=== PATIENT | male | born 1985 | race Native Hawaiian/Other Pacific Islander ===

== ENCOUNTER 2016-07-22 19:44 | Inpatient (IN) ==
[2016-07-22] MEDS ORDERED: SODIUM CHLORIDE 0.9% 500 ML IV STA (20:09)
--- NOTE | 2016-07-22 20:12 | Emergency Department Note ---
Chiki Rae Brooke, am scribing for, and in the presence of, Rui Aguiar MD 20 :10. Cosme Rae Charles R, MD, personally performed the services described in this documentation, ascribed by Sara Monet in my presence, and it is both accurate and complete . Arrival - Arrival Chief Complaint: Non-Specific Stated Complaint: Sepsis, UTI ED Nursing Triage Note: C/C transfer from [facility] ER Dx: UTI, Sepsis, Diabetes. Pt went into ER c/o fever, chills and dizziness. Pt has been given 1400ml NS, 10u Insulin IV, 5u insulin SQ, 1G Vancomycin, 1G Rocephin , 650mg Tylenol. Flu negative. Mode of Arrival: Stretcher Limitations: No Limitations Source: Patient, EMS, RN Notes Reviewed Time Seen by Provider: 07/22/16 20:04 - History of Present Illness HPI Narrative: Patient is a 30 year old male brought into the ED by EMS from [facility] with c/o dizziness, fever, and back pain that has been ongoing since Tuesday. Patient says when he gets us, it feels like he is going to pass out. He says he did have fever earlier today but was given 650 Tylenol at [facility]. Patient' s temperature during triage was 97.9 He denies having any current pain and denies having a cough. Patient has PMHx of HTN and IDDM. He says he does not smoke, drink alcohol, or do any drugs. Onset (ago): day(s) (4) Allergies/Adverse Reactions: Allergies Allergy/AdvReac Type Severity Reaction Status Date / Time sulfamethoxazole Allergy Unknown/Unable Verified 07/22/16 19:59 [From Bactrim] to obtain trimethoprim [From Bactrim] Allergy Unknown/Unable Verified 07/22/16 19:59 to obtain Home Medications: Home Medications Medication Instructions Recorded Confirmed Type Insulin Glargine,Hum.rec.anlog 50 unit SUBCUT BEDTIME 07/22/16 07/22/16 History [Lantus SoloStar] Review of System - Review of System 12 point system: reviewed and no additional remarkable complaints except as stated - Review of System Constitutional: Present: fever Respiratory: Absent: cough, respiratory distress Musculoskeletal: Present: back pain Skin: Absent: rash Neurological: Present: other (dizziness "feels like hes going to pass out") Medical,Surgical,& Family Hx - Medical History Cardio: History of: Hypertension Endocrine: History of: Diabetes Mellitus (IDDM) - Social History Smoking Status: Never smoker Frequency of Alcohol Use: None Type of Drug Use: None Exam Vital Signs: Vital Signs Temperature 97.9 F 07/22/16 19:44 Pulse Rate 105 H 07/22/16 19:44 Respiratory Rate 17 07/22/16 19:44 Blood Pressure 108/67 07/22/16 19:44 O2 Sat by Pulse Oximetry 96 07/22/16 19:44 - General General appearance: alert, in no apparent distress - Head Head exam: Present: atraumatic, normocephalic - Eye Eye exam: Present: normal appearance, PERRL, EOMI - ENT ENT exam: Present: normal exam - Neck Neck exam: Present: normal inspection - Chest Chest inspection: Present: normal inspection, symmetric chest wall rise - Respiratory Respiratory exam: Present: normal lung sounds bilaterally - Cardiovascular Cardiovascular exam: Present: normal rhythm, tachycardia, normal heart sounds - Abdominal Exam Abdominal exam: Present: soft. Absent: distention, tenderness - Extremities Exam Extremities exam: Present: normal inspection - Back Exam Back exam: Present: normal inspection - Neurological Exam Neurological exam: Present: alert, oriented X3 - Psychiatric Psychiatric exam: Present: normal affect, normal mood - Skin Skin exam: Present: warm, dry, intact, normal color Course - Consultations Consultation #1: Hospitalist will admit patient Time: 20:12 Results - Labs CBC & BMP: 07/22/16 20:09 Lab Results: I have reviewed the patients labs Labs: All results reviewed from previous facility Disposition Clinical Impression: Fever, Sepsis, UTI (urinary tract infection), Generalized weakness, Hypotension , Leukocytosis, Uncontrolled blood sugar Case discussed with: patient Disposition: Still a Patient Condition: Guarded Time of Disposition: 20:14
[2016-07-22 20:19] LABS: Basophils % 0.1 % (0.0-0.8); Eosinophils % 0.1 % (0.00-10.9); Hematocrit 33.8 VOL% (42.0-52.0); Hemoglobin 11.5 GM/DL (14.0-18.0); Immature Granulocytes % 0.5 %; Immature Granulocytes Absolute 0.07 #; Lymphocytes # 1.2 10*3/uL (1.4-4.0); Mean Corpuscular Hemoglobin 28 PG (27-34); Mean Platelet Volume 9.6 FL (9.6-12.0); Monocytes # 2.2 10*3/uL (0.11-0.8); Monocytes % 16.2 % (1.7-12.7); Neutrophils # 9.9 10*3/uL (1.4-7.4); Neutrophils % 74.1 % (38.7-73.9); Platelet Count 225 T/CUMM (130-400); Red Blood Count 4.12 MC/CUMM (3.8-5.5); Red Cell Distribution Width 12.2 % (9.3-17.3); White Blood Count 13.4 T/CUMM (4-12)
--- NOTE | 2016-07-22 20:36 | XRay Report ---
XR chest 1V portable Indication: Shortness of breath, fever Comparison: 11 May 2016 Findings: The heart and mediastinum are normal in size and configuration. The pulmonary vascularity is normal in caliber. No lung infiltrates, effusions, pneumothorax or other abnormality is demonstrated. Impression: Normal chest x-ray PROCEDURE INTERPRETED AT [facility] DEPARTMENT OF RADIOLOGY Final Report Signed by: Dr. Reji Foley
[2016-07-22 20:51] LABS: ABG Base Excess -0.4 MMOL/L (-2.5-2.5); ABG HCO3 24.1 MMOL/L (20-26); ABG Oxygen Saturation 95.6 % (95-100); ABG PCO2 42.6 MM HG (35-48); ABG PH 7.375 (7.35-7.45); ABG PO2 74.1 MM HG (80-95); ABG TCO2 22.2 MMOL/L (23-27); Allen Test Positive; Pt O2 Delivery Device Room Air
[2016-07-22 20:52] LABS: Alanine Aminotransferase 10 U/L (16-61); Albumin 2.3 G/DL (3.4-5.0); Alkaline Phosphatase 112 U/L (45-117); Amylase 31 U/L (25-115); Aspartate Amino Transferase 8 U/L (0-37); Bilirubin,Total < 0.39 MG/DL (0.2-1.0); Blood Urea Nitrogen 22 MG/DL (7-18); Calcium 7.7 MG/DL (8.5-10.1); Glucose 142 MG/DL (74-106); Osmolality,Calculated 281.5 MOS/KG (273-304); Potassium 3.7 MMOL/L (3.5-5.1); Sodium 139 MMOL/L (136-145); Total Protein 5.8 G/DL (6.4-8.3)
[2016-07-22] MEDS ORDERED: GLUCAGON 1 MG VIAL IM PRN (21:22)
[2016-07-22] MEDS ORDERED: DEXTROSE 50% 25 GM/50 ML VIAL IV PRN (21:22)
--- NOTE | 2016-07-22 21:32 | Hospitalist History & Physical ---
History of Present Illness Chief complaint: Dizziness poor arousal reported sepsis from [facility] History of present illness: Mr. Hamilton is a 30 year old male History of type 1 diabetes mellitus on insulin and reporting that he had missed his doses days leading to presenting to [facility]. He also reports that it was difficult to ambulate because he would feel dizzy and felt like he was going to fall down whenever he stood up. Shunt was assessed as [facility] where he was thought to be septic was given vancomycin and ceftriaxone and sent to the emergency room here for further evaluation and management. Was in the emergency room patient was found to have elevated white count obviously dehydrated and was given some IV fluids while in the emergency room prior to calling our service. 2 sets of blood cultures already obtained at [facility]. His urine was repeated here and found to have urinary tract infection. Patient did not have an anion gap at the chemistry repeated here his fingerstick sugar was 146 mg percent did not have any fetor on his breath. I cannot explain to me as to why he was not taking his insulin this past few days. He takes 50 units of Levemir insulin at bedtime does not recall using any short acting insulin. Denies any abdominal pain denies any chest pain denies any diarrhea denies any dysuria and he reports that he was having low back pain over the past few days. Obviously this gentleman was dehydrated as to whether he has sepsis and not is not clear lactate is still pending at this point but I am concerned that he seemed to have been hypotensive which could be the result of dehydration but sepsis is a possibility. He has normal renal function on repeat chemistries. I was informed by the emergency room that they needed a repeat chemistry but because in the experience the lab reports from where he did was done before coming to here some time but that they do get " messed up" Home Medications Medication Instructions Recorded Confirmed Type Insulin Glargine,Hum.rec.anlog 50 unit SUBCUT BEDTIME 07/22/16 07/22/16 History [Lantus SoloStar] Allergies Allergy/AdvReac Type Severity Reaction Status Date / Time sulfamethoxazole Allergy Unknown/Unable Verified 07/22/16 19:59 [From Bactrim] to obtain trimethoprim [From Bactrim] Allergy Unknown/Unable Verified 07/22/16 19:59 to obtain Medical,Surgical,& Family Hx - Medical History Cardio: History of: Hypertension Endocrine: History of: Diabetes Mellitus (IDDM) - Social History Smoking Status: Never smoker Frequency of Alcohol Use: None Type of Drug Use: None Exam - Constitutional Vitals: Period Temp Pulse Resp BP Sys/Borges Pulse Ox Last 24 Hr 97.9 F-97.9 F 105-105 108-108/67-67 96 Results - Labs CBC & BMP: 07/22/16 20:09 07/22/16 20:09
[2016-07-22 21:46] LABS: Risk Ratio 2.36; VLDL CHOLESTEROL 34.6 MG/DL
[2016-07-22 21:49] LABS: Apearance,Urine CLOUDY (Clear); Bilirubin,Urine Negative (Negative); Blood, Urine Moderate mg/dL (Negative); Glucose,Urine (UA) >=500 mg/dL (Negative); Ketones,Urine 20 mg/dL (Negative); Nitrite,Urine Negative (Negative); Protein,Urine Negative; RBC,Urine 6 /HPF (0-4); Urine Color Yellow (Yellow); Urine Specific Gravity 1.017 (1.001-1.035); Urine Urobilinogen < 2.0 EU/DL (0.2-1.0); WBC,Urine 25 /HPF (0-6)
[2016-07-22] MEDS: ENOXAPARIN 40 MG/0.4 ML SYRINGE SUBCUT SCH (22:24)
[2016-07-22] MEDS: INSULIN GLARGINE 100 UNIT/ML SUBCUT SCH (22:24)
[2016-07-22] MEDS: DEXTROSE 5% NACL 0.9% 1,000 ML IV SCH (22:25)
[2016-07-22 22:59] LABS: Eosinophils 1 % (0-10); Lymphocytes 9 % (20-55); Metamyelocytes 2 %; Platelet Estimate Normal; Segmented Neutrophils 75 % (50-85); Total Cells Counted 100
[2016-07-22 23:01] LABS: Sedimentation Rate-Westergren 103 MM/HR (0-15)
[2016-07-23] MEDS: ACETAMINOPHEN 325 MG TABLET PO PRN ×4 (05:33→23:52)
[2016-07-23] MEDS: DEXTROSE 5% NACL 0.9% 1,000 ML IV SCH (05:36)
[2016-07-23 07:15] LABS: Basophils % 0.1 % (0.0-0.8); Eosinophils % 0.1 % (0.00-10.9); Hematocrit 33.1 VOL% (42.0-52.0); Hemoglobin 11.2 GM/DL (14.0-18.0); Immature Granulocytes % 0.4 %; Immature Granulocytes Absolute 0.05 #; Lymphocytes # 1.1 10*3/uL (1.4-4.0); Lymphocytes % 8.2 % (21.2-54.2); Mean Corpuscular HGB Conc 33.8 GM/DL (32-36); Mean Corpuscular Hemoglobin 28 PG (27-34); Mean Corpuscular Volume 82.8 FL (87-102); Mean Platelet Volume 9.6 FL (9.6-12.0); Monocytes # 1.7 10*3/uL (0.11-0.8); Monocytes % 13.3 % (1.7-12.7); Neutrophils # 9.9 10*3/uL (1.4-7.4); Neutrophils % 77.9 % (38.7-73.9); Platelet Count 201 T/CUMM (130-400); White Blood Count 12.7 T/CUMM (4-12)
[2016-07-23 07:47] LABS: Calcium 8.1 MG/DL (8.5-10.1); Magnesium 1.9 MG/DL (1.8-2.4)
[2016-07-23] MEDS ORDERED: INSULIN LISPRO 100 UNIT/ML SUBCUT SCH (08:00)
[2016-07-23] MEDS ORDERED: DEXTROSE 50% 25 GM/50 ML VIAL IV PRN (08:05)
[2016-07-23] MEDS ORDERED: GLUCAGON 1 MG VIAL IM PRN (08:05)
[2016-07-23] MEDS ORDERED: POTASSIUM CHLORIDE 20 MEQ PACK PO ONE (08:07)
[2016-07-23] MEDS ORDERED: SODIUM CHLORIDE 0.9% 1,000 ML IV SCH (08:30)
[2016-07-23 08:32] LABS: Risk Ratio 2.34; VLDL CHOLESTEROL 33.2 MG/DL
[2016-07-23] MEDS: SODIUM CHLORIDE 0.9% 1,000 ML IV SCH (09:34)
--- NOTE | 2016-07-23 13:57 | Hospitalist Progress Note ---
Assessment and Plan (1) Diabetes mellitus Status: Chronic Assessment and plan: Poorly controlled IRDM. Pt noncompliant with meds and follow up. HbA1c>15. Pt counseled in detail regarding need for compliance and complications a/w noncompliance Current Visit: Yes (2) Hypokalemia Status: Acute Assessment and plan: replacing Current Visit: Yes (3) Fever Status: Acute Assessment and plan: Sepsis vs SIRs. Pt presumed to have sepsis from urinary source, POA. Cx negative thus far. Afebrile since admit. Will begin de-escalation of abx with dc of Rocephin; start po Ceftin for now. Current Visit: Yes (4) Generalized weakness Status: Resolved Current Visit: Yes (5) Hypotension Status: Resolved Current Visit: Yes Hospitalist: Subjective Interval history: NV and "dizziness" POA has now resolved Exam - Constitutional Vitals: Period Temp Pulse Resp BP Sys/Borges Pulse Ox Last 24 Hr 97.4 F-101.8 F 93-115 16-20 102-120/57-81 97-99 General appearance: no acute distress - Head Head exam: Present: normal inspection - Eye Eye exam: Present: EOMI Pupils: Present: MASOOD - ENT ENT exam: Present: normal exam - Neck Neck exam: Present: normal inspection. Absent: lymphadenopathy - Respiratory Respiratory exam: Present: clear to auscultation bilaterally. Absent: accessory muscle use, rales, rhonchi, wheezes - Cardiovascular Cardiovascular exam: Present: regular rate and rhythm. Absent: gallop, rubs - GI/Abdominal GI/Abdominal exam: Present: normal bowel sounds. Absent: distended, tenderness - Extremities Exam Extremities exam: Present: normal inspection, full ROM - Neurological Exam Neurological exam: Present: alert, oriented X3 - Psychiatric Psychiatric exam: Present: normal affect, normal mood - Skin Skin exam: Present: normal color, warm, dry Results - Labs CBC & BMP: 07/23/16 07:10 07/23/16 07:10 Quality Measures - Stroke Symptom Onset Unknown: No
[2016-07-23] MEDS: INSULIN LISPRO 100 UNIT/ML SUBCUT SCH ×3 (14:30→21:49)
[2016-07-23] MEDS: CEFUROXIME 500 MG TABLET PO SCH ×2 (14:30→21:49)
[2016-07-23] MEDS ORDERED: cefTRIAXone 1,000 MG in SODIUM CHLORIDE 0.9% 100 ML IV SCH (18:00)
[2016-07-23] MEDS: INSULIN GLARGINE 100 UNIT/ML SUBCUT SCH (21:48)
[2016-07-23] MEDS: LEVOFLOXACIN INJ 750 MG in PREMIX 1 EACH IV SCH (21:48)
[2016-07-23] MEDS: ENOXAPARIN 40 MG/0.4 ML SYRINGE SUBCUT SCH (21:49)
[2016-07-24] MEDS: SODIUM CHLORIDE 0.9% 1,000 ML IV SCH ×3 (00:40→15:51)
[2016-07-24 04:03] LABS: Basophils % 0.2 % (0.0-0.8); Eosinophils % 0.1 % (0.00-10.9); Hemoglobin 11.2 GM/DL (14.0-18.0); Immature Granulocytes % 0.6 %; Immature Granulocytes Absolute 0.07 #; Lymphocytes # 1.2 10*3/uL (1.4-4.0); Lymphocytes % 10.9 % (21.2-54.2); Mean Corpuscular HGB Conc 32.9 GM/DL (32-36); Mean Corpuscular Hemoglobin 27 PG (27-34); Mean Corpuscular Volume 82.7 FL (87-102); Mean Platelet Volume 9.6 FL (9.6-12.0); Monocytes # 1.5 10*3/uL (0.11-0.8); Monocytes % 13.2 % (1.7-12.7); Neutrophils # 8.4 10*3/uL (1.4-7.4); Platelet Count 206 T/CUMM (130-400); Red Blood Count 4.11 MC/CUMM (3.8-5.5); Red Cell Distribution Width 12.1 % (9.3-17.3); White Blood Count 11.2 T/CUMM (4-12)
[2016-07-24 04:23] LABS: Albumin 2.2 G/DL (3.4-5.0); Calcium 7.6 MG/DL (8.5-10.1); Magnesium 1.8 MG/DL (1.8-2.4); Osmolality,Calculated 279.1 MOS/KG (273-304); Potassium 3.2 MMOL/L (3.5-5.1)
[2016-07-24] MEDS: ACETAMINOPHEN 325 MG TABLET PO PRN ×2 (06:40→17:42)
[2016-07-24] MEDS: INSULIN LISPRO 100 UNIT/ML SUBCUT SCH ×4 (09:35→21:21)
[2016-07-24] MEDS: CEFUROXIME 500 MG TABLET PO SCH (09:36)
--- NOTE | 2016-07-24 10:30 | Hospitalist Progress Note ---
Assessment and Plan (1) Diabetes mellitus Status: Chronic Assessment and plan: Poorly controlled IRDM. Pt noncompliant with meds and follow up. HbA1c>15. Pt counseled in detail regarding need for compliance and complications a/w noncompliance. 07/24/16: start split-dose Lantus at 35u BID due to persistent hyperglycemia Current Visit: Yes (2) Hypokalemia Status: Acute Assessment and plan: replacing K+ and phos until replete Current Visit: Yes (3) Fever Status: Acute Assessment and plan: Sepsis vs SIRs. Pt presumed to have sepsis from urinary source, POA. Cx negative thus far. Began de-escalation of abx yesterday and pt began having fever. Source is no clear. Bcx x 2 toady. repeat CXR. Add HIV. Cont IV Levaquin and add IV Rocephin. Rapid Flu negative Current Visit: Yes (4) Generalized weakness Status: Resolved Current Visit: Yes (5) Hypotension Status: Resolved Current Visit: Yes (6) Hypophosphatemia Status: Acute Assessment and plan: replacing Current Visit: Yes (7) Protein-calorie malnutrition Status: Acute Assessment and plan: consult childhood development teacher Current Visit: Yes Hospitalist: Subjective Interval history: Pt reports generally feeling better despite return of fever Exam - Constitutional Vitals: Period Temp Pulse Resp BP Sys/Borges Pulse Ox Last 24 Hr 98.7 F-102.7 F 78-116 16-20 93-121/53-74 97-98 General appearance: no acute distress, under weight, other (diaphoretic (fever broke)) - Head Head exam: Present: normal inspection, normocephalic, atraumatic - Eye Eye exam: Present: EOMI. Absent: conjunctival injection, scleral icterus Pupils: Present: MASOOD - ENT ENT exam: Present: normal exam, normal oropharynx - Neck Neck exam: Present: normal inspection. Absent: lymphadenopathy, meningismus - Respiratory Respiratory exam: Present: clear to auscultation bilaterally. Absent: accessory muscle use, chest wall tenderness, decreased breath sounds, rales, rhonchi, wheezes - Cardiovascular Cardiovascular exam: Present: regular rate and rhythm. Absent: gallop, rubs - GI/Abdominal GI/Abdominal exam: Present: normal bowel sounds. Absent: distended, tenderness - Extremities Exam Extremities exam: Present: normal inspection, normal capillary refill, full ROM - Neurological Exam Neurological exam: Present: alert, oriented X3. Absent: motor sensory deficit - Psychiatric Psychiatric exam: Present: normal affect, normal mood - Skin Skin exam: Present: normal color, warm, diaphoretic, dry. Absent: abrasion, erythema, rash Results - Labs CBC & BMP: 07/24/16 03:33 07/24/16 03:33 Quality Measures - Stroke Symptom Onset Unknown: No
--- NOTE | 2016-07-24 12:42 | XRay Report ---
Portable chest Date: 07/24/2016 Clinical history: Fever Comparison: 07/20/2016 Technique: Portable AP sitting chest Findings: The heart is normal in size. Atelectasis/infiltration at the left lung base. Stable mediastinum and osseous structures. Impression: Atelectasis/infiltration at the left lung base consistent with pneumonia. PROCEDURE INTERPRETED AT [facility] DEPARTMENT OF RADIOLOGY Final Report Signed by: Dr. Adela Narayan
[2016-07-24] MEDS: POTASSIUM PHOS/SOD PHOS POWDER 250 MG PACK PO SCH ×3 (13:16→21:22)
[2016-07-24] MEDS: INSULIN GLARGINE 100 UNIT/ML SUBCUT SCH ×2 (13:18→21:21)
[2016-07-24] MEDS: cefTRIAXone 2,000 MG in SODIUM CHLORIDE 0.9% 100 ML IV SCH (13:18)
[2016-07-24 14:14] LABS: HIV Antigen/Antibody Result Nonreactive (Nonreactive)
[2016-07-24] MEDS: ENOXAPARIN 40 MG/0.4 ML SYRINGE SUBCUT SCH (22:40)
[2016-07-24] MEDS: LEVOFLOXACIN INJ 750 MG in PREMIX 1 EACH IV SCH (22:40)
[2016-07-25] MEDS: ACETAMINOPHEN 325 MG TABLET PO PRN ×2 (05:22→17:50)
[2016-07-25] MEDS: SODIUM CHLORIDE 0.9% 1,000 ML IV SCH ×5 (05:23→21:31)
[2016-07-25 06:04] LABS: Basophils % 0.1 % (0.0-0.8); Eosinophils % 0.2 % (0.00-10.9); Hematocrit 30.3 VOL% (42.0-52.0); Hemoglobin 10.3 GM/DL (14.0-18.0); Immature Granulocytes % 0.4 %; Immature Granulocytes Absolute 0.05 #; Lymphocytes # 1.4 10*3/uL (1.4-4.0); Mean Corpuscular Hemoglobin 28 PG (27-34); Mean Corpuscular Volume 80.8 FL (87-102); Mean Platelet Volume 9.9 FL (9.6-12.0); Monocytes # 1.6 10*3/uL (0.11-0.8); Monocytes % 13.8 % (1.7-12.7); Neutrophils # 8.7 10*3/uL (1.4-7.4); Neutrophils % 73.5 % (38.7-73.9); Platelet Count 204 T/CUMM (130-400); Red Blood Count 3.75 MC/CUMM (3.8-5.5); Red Cell Distribution Width 12.3 % (9.3-17.3); White Blood Count 11.8 T/CUMM (4-12)
[2016-07-25 06:54] LABS: Albumin 1.9 G/DL (3.4-5.0); Calcium 7.3 MG/DL (8.5-10.1); Magnesium 1.6 MG/DL (1.8-2.4); Osmolality,Calculated 276.7 MOS/KG (273-304); Phosphorous 1.3 MG/DL (2.5-4.9); Potassium 3.1 MMOL/L (3.5-5.1)
[2016-07-25] MEDS ORDERED: MAGNESIUM SULF RIDER 2 GM in PREMIX 1 EACH IV PRN (07:15)
[2016-07-25] MEDS ORDERED: MAGNESIUM SULF RIDER 4 GM in PREMIX 1 EACH IV PRN (07:15)
--- NOTE | 2016-07-25 10:47 | Hospitalist Progress Note ---
Assessment and Plan - Time spent with patient Time spent with patient: Greater than 30 minutes (1) Diabetes mellitus Status: Chronic Assessment and plan: Poorly controlled IRDM. Pt noncompliant with meds and follow up. HbA1c>15. Pt counseled in detail regarding need for compliance and complications a/w noncompliance. 07/24/16: start split-dose Lantus at 35u BID due to persistent hyperglycemia. 07/25: will titrate up basal insulin further for persistent hyperglycemia Current Visit: Yes (2) Hypokalemia Status: Acute Assessment and plan: replacing K+ and phos until replete Current Visit: Yes (3) Fever Status: Acute Assessment and plan: Sepsis vs SIRs. Pt presumed to have sepsis from urinary source, POA. Cx of urine with 2 different yeast. ID and sensitivity pending. Given uncontrolled DM , pt is at increased risk of invasive/pathogenic yeast; will begin IV antifungal for now. CXR from 07/24 reviewed. Basilar infiltrate vs atelectasis present that was not on admit cxr. Pt is on adequate tx for CAP. I have performed head to toe exam at bedside today looking for potential wound infection; none noted. Pt denies pain or other localizing symptoms. BCx data is pending. IV vancomycin added as well as IV antifungal. CT chest, abd and pelvis today. Current Visit: Yes (4) Generalized weakness Status: Resolved Current Visit: Yes (5) Hypotension Status: Resolved Current Visit: Yes (6) Hypophosphatemia Status: Acute Assessment and plan: replacing Current Visit: Yes (7) Protein-calorie malnutrition Status: Acute Assessment and plan: consult assistant facility manager Current Visit: Yes Hospitalist: Subjective Interval history: Persistent fever. Pt reports feeling better but seems to be an unreliable historian. Exam - Constitutional Vitals: Period Temp Pulse Resp BP Sys/Borges Pulse Ox Last 24 Hr 98.1 F-106.3 F 101-113 16-20 86-116/49-70 96-98 General appearance: no acute distress, under weight - Head Head exam: Present: normal inspection, normocephalic, atraumatic - Eye Eye exam: Present: EOMI. Absent: conjunctival injection, scleral icterus Pupils: Present: MASOOD - ENT ENT exam: Present: normal exam, normal external ear exam, normal oropharynx - Neck Neck exam: Present: normal inspection. Absent: lymphadenopathy, meningismus, tenderness - Respiratory Respiratory exam: Present: clear to auscultation bilaterally. Absent: accessory muscle use, chest wall tenderness, rales, rhonchi, wheezes - Cardiovascular Cardiovascular exam: Present: tachycardia. Absent: diastolic murmur, gallop, rubs, systolic murmur - GI/Abdominal GI/Abdominal exam: Present: normal bowel sounds, soft. Absent: distended, tenderness - Extremities Exam Extremities exam: Present: normal inspection, normal capillary refill, full ROM - Back Exam Back exam: Present: normal inspection. Absent: CVA tenderness (L), CVA tenderness (R) - Neurological Exam Neurological exam: Present: alert, oriented X3, CN II-XII intact. Absent: motor sensory deficit - Psychiatric Psychiatric exam: Present: flat affect. Absent: agitated, anxious - Skin Skin exam: Present: normal color, warm, dry, intact. Absent: abrasion, erythema , rash Results - Labs CBC & BMP: 07/25/16 05:42 07/25/16 05:42 - Diagnostic Findings Procedure: Chest x-ray: image reviewed by me, report reviewed by me (basilar infiltrate not noted on prior cxr), CT Abdomen and Pelvis: pending, CT - chest: pending Quality Measures - Stroke Symptom Onset Unknown: No
[2016-07-25] MEDS: INSULIN LISPRO 100 UNIT/ML SUBCUT SCH ×4 (11:13→21:31)
[2016-07-25] MEDS: MICAFUNGIN 100 MG in SODIUM CHLORIDE 0.9% 100 ML IV SCH (11:13)
[2016-07-25] MEDS: POTASSIUM CHLORIDE RIDER 10 MEQ in PREMIX 1 EACH IV PRN ×4 (11:13→15:46)
[2016-07-25] MEDS: INSULIN GLARGINE 100 UNIT/ML SUBCUT SCH ×3 (11:14→21:31)
[2016-07-25] MEDS: POTASSIUM PHOS/SOD PHOS POWDER 250 MG PACK PO SCH ×3 (11:16→21:32)
[2016-07-25] MEDS: VANCOMYCIN INJ 1,000 MG in SODIUM CHLORIDE 0.9% 250 ML IV SCH ×2 (12:31→18:46)
--- NOTE | 2016-07-25 14:08 | CT Report ---
Exam: CT chest, abdomen and pelvis with contrast Date: 07/25/2016 Comparison: 04/26/2012 Reason: Sepsis, fever Technique: Axial images of the chest, abdomen and pelvis were obtained with the use of 100 cc of Omnipaque 350 IV contrast. Oral contrast was also administered. Sagittal and coronal reformatted images were provided. Total DLP is 692.90 mGy*cm. Findings: The heart is normal in size with small cardiophrenic fat pads. The ascending aorta is normal in size with no evidence aortic dissection. Limited contrast in the pulmonary arteries. No obvious pulmonary emboli. Minimal air in the main pulmonary artery. No chest lymphadenopathy is identified. Small hiatal hernia with progressive dilatation of the esophagus which contains food/secretions. The esophagus measures 38 mm in diameter. Reduced but persistent minimal atelectasis/infiltration in the left lower lobe with tiny left pleural effusion. The liver is normal in size with no masses, dilated ducts, or calcified gallstones. The spleen, pancreas and adrenal glands are stable in appearance. Minimal right hydronephrosis with cortical scarring in the right kidney. 3 mm left upper pole renal calculus with moderate left hydronephrosis. In homogeneous enhancement/excretion of the contrast in the left kidney. Significant progressive dilatation of the left ureter which measures 18 mm in diameter. The ureters are dilated to the level of the urinary bladder. No ureteral calculi identified. Progressive diffuse thickening of the wall of the urinary bladder which is distended to the level of L4-L5. The prostate measures 43 mm in diameter. The abdominal aorta is normal in size with adjacent nodes which are borderline in size to minimally enlarged. No dilatation of the small bowel. Limited oral contrast versus colon with diverticulosis. No evidence of definite diverticulitis, appendicitis, or free air. Minimal free fluid in the abdomen and pelvis with associated thickening of the mesentery. Additional perinephric fluid, especially on the left. Degenerative changes are noted. Impression: Reduced but persistent atelectasis/infiltration in the left lower lobe with tiny left pleural effusion. Small hiatal hernia with progressive dilatation of the esophagus which appears to be filled with food/secretions. At least some of these findings could be related to reflux, but is difficult to exclude other bowel pathology. Limited oral contrast in the colon with diverticulosis. Scarring in the right kidney with 3 mm left upper pole renal calculus. Inhomogeneous enhancement/excretion of the left kidney which can be seen with pyelonephritis, etc. Minimal right and moderate left hydronephrosis with perinephric fluid. The ureters are dilated level of the abnormal urinary bladder which is distended to the level of L4-L5. Diffuse bladder wall thickening which can be seen with infection, inflammation, neoplasm, etc. Associated minimal ascites with indeterminate thickening of the mesentery and minimal lymphadenopathy. The CT exam was performed using one or more of the following dose reduction techniques: Automated exposure control and adjustment of the mA and/or kV according to patient size. PROCEDURE INTERPRETED AT [facility] DEPARTMENT OF RADIOLOGY Final Report Signed by: Dr. Adela Narayan
[2016-07-25] MEDS: cefTRIAXone 2,000 MG in SODIUM CHLORIDE 0.9% 100 ML IV SCH (15:42)
[2016-07-25] MEDS: ENOXAPARIN 40 MG/0.4 ML SYRINGE SUBCUT SCH (21:32)
[2016-07-25] MEDS: LEVOFLOXACIN INJ 750 MG in PREMIX 1 EACH IV SCH (21:32)
[2016-07-26] MEDS: POTASSIUM CHLORIDE RIDER 10 MEQ in PREMIX 1 EACH IV PRN ×7 (00:06→13:04)
[2016-07-26] MEDS: VANCOMYCIN INJ 1,000 MG in SODIUM CHLORIDE 0.9% 250 ML IV SCH ×3 (01:14→19:06)
[2016-07-26] MEDS: ACETAMINOPHEN 325 MG TABLET PO PRN ×3 (01:48→17:10)
[2016-07-26 07:14] LABS: Basophils % 0.2 % (0.0-0.8); Eosinophils % 0.3 % (0.00-10.9); Hematocrit 30.8 VOL% (42.0-52.0); Hemoglobin 10.1 GM/DL (14.0-18.0); Immature Granulocytes % 0.6 %; Immature Granulocytes Absolute 0.07 #; Lymphocytes # 1.5 10*3/uL (1.4-4.0); Lymphocytes % 13.2 % (21.2-54.2); Mean Corpuscular HGB Conc 32.8 GM/DL (32-36); Mean Corpuscular Hemoglobin 27 PG (27-34); Mean Platelet Volume 9.9 FL (9.6-12.0); Monocytes # 1.7 10*3/uL (0.11-0.8); Monocytes % 14.7 % (1.7-12.7); Neutrophils # 8.3 10*3/uL (1.4-7.4); Platelet Count 224 T/CUMM (130-400); Red Blood Count 3.71 MC/CUMM (3.8-5.5); Red Cell Distribution Width 12.4 % (9.3-17.3); White Blood Count 11.7 T/CUMM (4-12)
[2016-07-26 07:35] LABS: Albumin 1.9 G/DL (3.4-5.0); Calcium 7.5 MG/DL (8.5-10.1); Magnesium 2.4 MG/DL (1.8-2.4); Osmolality,Calculated 274.7 MOS/KG (273-304); Phosphorous 0.9 MG/DL (2.5-4.9); Potassium 3.6 MMOL/L (3.5-5.1)
[2016-07-26] MEDS: INSULIN GLARGINE 100 UNIT/ML SUBCUT SCH ×2 (08:21→21:52)
[2016-07-26] MEDS: INSULIN LISPRO 100 UNIT/ML SUBCUT SCH ×4 (08:21→21:52)
[2016-07-26] MEDS: SODIUM CHLORIDE 0.9% 1,000 ML IV SCH ×4 (11:22→20:39)
[2016-07-26] MEDS: cefTRIAXone 2,000 MG in SODIUM CHLORIDE 0.9% 100 ML IV SCH (11:25)
[2016-07-26] MEDS: MICAFUNGIN 100 MG in SODIUM CHLORIDE 0.9% 100 ML IV SCH (11:25)
[2016-07-26] MEDS: POTASSIUM PHOS/SOD PHOS POWDER 250 MG PACK PO SCH ×3 (11:29→21:53)
[2016-07-26 11:47] LABS: Apearance,Urine Turbid (Clear); Bilirubin,Urine Negative (Negative); Blood, Urine Trace mg/dL (Negative); Glucose,Urine (UA) 150 mg/dL (Negative); Ketones,Urine Negative (Negative); Nitrite,Urine Negative (Negative); Protein,Urine 100 MG/DL; RBC,Urine 35 /HPF (0-4); Urine Color Yellow (Yellow); Urine Specific Gravity 1.005 (1.001-1.035); Urine Urobilinogen 0.2 EU/DL (0.2-1.0); WBC,Urine 2412 /HPF (0-6)
--- NOTE | 2016-07-26 13:01 | Hospitalist Progress Note ---
Assessment and Plan (1) Hydronephrosis, bilateral Status: Acute Assessment and plan: Patient now has a Carreon catheter. Is noted on evaluation so this point that he also thickened urinary bladder. Patient will be seen by urology. We will heed their recommendations Current Visit: Yes (2) Fever Status: Acute Assessment and plan: Noted quite significant fevers into yesterday. My suspicion that he had a urinary tract infection of his persisting due to this hydronephrosis. Patient now has a Carreon catheter. Should obtain a urine and reassess in with a urinalysis urine Gram stain and culture and also get a urine cytology Current Visit: Yes (3) UTI (urinary tract infection) Status: Acute Assessment and plan: Being treated in the colon currently on levofloxacin micafungin vancomycin and ceftriaxone I believe ceftriaxone is a necessary we are going to use Levaquin for urinary tract infection Current Visit: Yes (4) Leukocytosis Status: Acute Assessment and plan: Mortise at this point could be secondary to infection and will continue to observe Current Visit: Yes (5) Diabetes mellitus Status: Chronic Current Visit: Yes Qualifiers: Diabetes mellitus type: type 1 Diabetes mellitus complication status: with hyperglycemia Qualified Code(s): E10.65 - Type 1 diabetes mellitus with hyperglycemia (6) Protein-calorie malnutrition Status: Acute Assessment and plan: Current dietary recommendation on his caloric needs Current Visit: Yes Hospitalist: Subjective Interval history: Patient has been seen interviewed and examined. Gentleman now has a Carreon catheter because he was retaining his urine and will hydronephrosis. Concerned that reading into yesterday still had fever that are quite high does have a modest leukocytosis and level of 11,000 found weight loss diabetic with poor control and noncompliance with medications at home. Is not aware of his HIV status. I counseled the patient in that regard and is agreed to be tested here. Patient will also be seen by a health informatics advisor because of the unexplained hydronephrosis urinary retention and thickened urinary bladder wall. Whether this metastasis involved eos infectious is unclear. Exam - Constitutional Vitals: Period Temp Pulse Resp BP Sys/Borges Pulse Ox Last 24 Hr 98.3 F-102.4 F 80-125 16-20 85-120/50-86 96-99 General appearance: under weight - Head Head exam: Present: normal inspection, normocephalic, other (Temporal was) - Eye Eye exam: Present: EOMI, other (That is clear no conjunctival petechia) Pupils: Present: MASOOD - ENT ENT exam: Present: normal oropharynx - Neck Neck exam: Present: other - Respiratory Respiratory exam: Present: clear to auscultation bilaterally, other (No coughing today and in both lung no wheezing) - Cardiovascular Cardiovascular exam: Present: regular rate and rhythm - GI/Abdominal GI/Abdominal exam: Present: other (Soft scaphoid abdomen no hepatosplenomegaly normal bowel sounds) - Extremities Exam Extremities exam: Present: other (Loss of muscle bulk multiple excoriations that reviewed generalized weakness full range of motion) - Back Exam Back exam: Present: other (Symmetric back or CVA tenderness) - Neurological Exam Neurological exam: Present: alert, oriented X3, CN II-XII intact - Psychiatric Psychiatric exam: Present: normal affect, normal mood - Skin Skin exam: Present: normal color, warm, dry, other (Healed scars on the skin) Results - Labs CBC & BMP: 07/26/16 06:50 07/26/16 06:50 Lab Results: I have reviewed the past 24 hour labs Quality Measures - Stroke Symptom Onset Unknown: No
--- NOTE | 2016-07-26 18:12 | Urology Consultation ---
Assessment and Plan - Time spent with patient Time spent with patient: Greater than 30 minutes (1) Urinary retention Status: Acute Assessment and plan: Begin Flomax given voiding trial when he is improved. Current Visit: Yes (2) Monilial cystitis Status: Acute Assessment and plan: Needs to start Diflucan but there is a interaction with Levaquin. We will notify the attending and see if we could stop the Levaquin. Current Visit: Yes History of Present Illness - Data of Consult Patient: new to practice Consult date: 07/26/16 Requesting Physician: Tino Darling - Consult Narrative Reason for consult: Urinary retention History of present illness: Mr. Hamilton is a 30 year old male who is a poorly controlled insulin diabetic. He was initially diagnosed 6 years ago. He is admitted the hospital with generalized malaise feeling poorly subjective fever. Thought to be septic. A CT scan revealed bilateral hydronephrosis with enlarged bladder. He has been admitted to hospital and treated for urosepsis with IV antibiotics and cultures. Bladder scan was done there revealed a large amount in his bladder. A Carreon was placed. Surprisingly through all this his creatinine is normal. He has taken care of his diabetes and a very apathetic way. 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 6 years of poorly controlled diabetes can severely damaged her bladder. Not to mention the kidneys and other things. His urine culture shows Ara in his urine. He needs to be placed on Diflucan but he is on Levaquin and there is a serious interaction between those 2 drugs. I will have the nurses contact the attending and see if they could stop the Levaquin. I will begin Flomax. We will remove the catheter when he is feeling better and ambulating better. He may in the long run, require intermittent catheterization as his bladder may not respond. But he is young enough that it should. Only time will tell. CC: Tino Darling MD - Home Medications and Allergies Home Medications: Home Medications Medication Instructions Recorded Confirmed Type Insulin Glargine,Hum.rec.anlog 50 unit SUBCUT BEDTIME 07/22/16 07/22/16 History [Lantus SoloStar] Allergies/Adverse Reactions: Allergies Allergy/AdvReac Type Severity Reaction Status Date / Time sulfamethoxazole Allergy Unknown/Unable Verified 07/22/16 19:59 [From Bactrim] to obtain trimethoprim [From Bactrim] Allergy Unknown/Unable Verified 07/22/16 19:59 to obtain 12 point system: reviewed and no additional remarkable complaints except as stated - Genitourinary Genitourinary: Present: difficulty urinating, urinary frequency, urinary incontinence, other (Patient would have multiple incontinence at night in the bed) Exam - Constitutional Vitals: Period Temp Pulse Resp BP Sys/Borges Pulse Ox Last 24 Hr 98.3 F-102.4 F 80-125 16-20 85-110/50-71 96-99 - GI/Abdominal GI/Abdominal exam: Present: tenderness (Mild suprapubic), soft. Absent: distended, firm, guarding, hernia, mass, rebound - Genitourinary Genitourinary: scrotum without lesions, cysts, edema or rash, penis with no lesions or discharge, prostate nontender, with no enlargement or nodules Results - Labs CBC & BMP: 07/26/16 06:50 07/26/16 06:50 Lab Results: I have reviewed the past 24 hour labs - Diagnostic Findings Procedure: CT Abdomen and Pelvis: report reviewed by me
[2016-07-26] MEDS: ENOXAPARIN 40 MG/0.4 ML SYRINGE SUBCUT SCH (21:52)
[2016-07-27] MEDS: VANCOMYCIN INJ 1,000 MG in SODIUM CHLORIDE 0.9% 250 ML IV SCH ×2 (01:53→11:01)
[2016-07-27] MEDS: SODIUM CHLORIDE 0.9% 1,000 ML IV SCH ×4 (03:01→13:16)
[2016-07-27 05:49] LABS: HIV Antigen/Antibody Result Nonreactive (Nonreactive)
[2016-07-27] MEDS: INSULIN LISPRO 100 UNIT/ML SUBCUT SCH ×4 (08:28→21:58)
--- NOTE | 2016-07-27 09:04 | Urology Progress Note ---
Assessment and Plan (1) Urinary retention Status: Acute Assessment and plan: Begin Flomax given voiding trial when he is improved. Current Visit: Yes (2) Monilial cystitis Status: Acute Assessment and plan: Needs to start Diflucan but there is a interaction with Levaquin. We will notify the attending and see if we could stop the Levaquin. Current Visit: Yes Urology - PN: Subj Interval history: Patient is feeling better. Urine culture grew out Ara albicans and Ara Galbrata. He is on micafungin. We will remove the Carreon. He needs to ambulate. We will cath him as needed. He is on Flomax. Exam - Constitutional Vitals: Period Temp Pulse Resp BP Sys/Borges Pulse Ox Last 24 Hr 99.2 F-100.5 F 90-116 18-20 95-126/56-76 93-98 Results - Labs CBC & BMP: 07/26/16 06:50 07/26/16 06:50
[2016-07-27] MEDS: MICAFUNGIN 100 MG in SODIUM CHLORIDE 0.9% 100 ML IV SCH (09:39)
[2016-07-27] MEDS: TAMSULOSIN 0.4 MG CAPSULE PO SCH (09:43)
[2016-07-27] MEDS: POTASSIUM PHOS/SOD PHOS POWDER 250 MG PACK PO SCH ×3 (09:44→22:00)
[2016-07-27] MEDS: INSULIN GLARGINE 100 UNIT/ML SUBCUT SCH ×2 (09:46→21:59)
--- NOTE | 2016-07-27 11:16 | Hospitalist Progress Note ---
Assessment and Plan (1) Hydronephrosis, bilateral Status: Acute Assessment and plan: Patient now had a Carreon catheter is now taken. Observe his voiding. Repeat a BMP and magnesium in the morning. Current Visit: Yes (2) Fever Status: Acute Assessment and plan: There is having persistent low at this point a low-grade. She does have candiduria. He has isolated Ara albicans and Ara glabrata in the urine. He has been started on a Kehinde accounting (micafungin) should continue to follow him on these. He will need to have a repeat urinalysis as an outpatient in the coming 3 weeks. She will be treated for about 7 days. Continue Flomax which was started by urology. His continue antibacterials. Current Visit: Yes (3) UTI (urinary tract infection) Status: Acute Assessment and plan: Being treated in the colon currently on levofloxacin micafungin vancomycin and ceftriaxone I believe ceftriaxone is a necessary we are going to use Levaquin for urinary tract infection Current Visit: Yes (4) Leukocytosis Status: Acute Assessment and plan: Repeat his CBC in the morning alongside chemistry Current Visit: Yes (5) Diabetes mellitus Status: Chronic Current Visit: Yes Qualifiers: Diabetes mellitus type: type 1 Diabetes mellitus complication status: with hyperglycemia Qualified Code(s): E10.65 - Type 1 diabetes mellitus with hyperglycemia (6) Protein-calorie malnutrition Status: Acute Assessment and plan: I appreciate dietary recommendations Current Visit: Yes Hospitalist: Subjective Interval history: Mr. Hamilton has been seen interviewed and examined and chart has been reviewed. This gentleman seems to be doing better generally however I am concerned that he is still having fevers though at most times low-grade. He has been on broad- spectrum antibiotics since admission was removed 4 days ago. 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 He had a Carreon catheter put in yesterday with resultant decompression of the urinary bladder. He had to do BMP this morning and magnesium. General thinking at this point is to take him off for antibacterials leave him on an antifungal because the urine has grown Ara albicans and Ara glabrata. Because he is rather emaciated checked his HIV screen and that was negative. I will also check TB-Gold. Patient has been put on Flomax but allowed to walk about a day see if he is able to empty his bladder better. Chances are we can send him home tomorrow to follow up with urology as an outpatient follow-up with primary care physician in the coming week she is at [facility]. Exam - Constitutional Vitals: Period Temp Pulse Resp BP Sys/Borges Pulse Ox Last 24 Hr 99.2 F-100.5 F 90-116 18-20 95-126/56-76 93-98 General appearance: normal weight - Head Head exam: Present: normal inspection - Eye Eye exam: Present: EOMI Pupils: Present: MASOOD - ENT ENT exam: Present: normal exam - Neck Neck exam: Present: other (Supple no thyromegaly no JVD no bruit) - Respiratory Respiratory exam: Present: clear to auscultation bilaterally, other (No wheezing no rales no rhonchi occasional cough) - Cardiovascular Cardiovascular exam: Present: regular rate and rhythm - GI/Abdominal GI/Abdominal exam: Present: normal bowel sounds, soft, other (Scaphoid abdomen hepatosplenomegaly) - Extremities Exam Extremities exam: Present: full ROM, other (Loss of muscle bulk until he can move about. His gentleman is lost a lot of weight in general.) - Neurological Exam Neurological exam: Present: alert, oriented X3, CN II-XII intact - Psychiatric Psychiatric exam: Present: normal affect, normal mood - Skin Skin exam: Present: normal color, warm, dry Results - Labs CBC & BMP: 07/26/16 06:50 07/26/16 06:50 Lab Results: I have reviewed the past 24 hour labs (Noted stable chronic anemia) Quality Measures - Stroke Symptom Onset Unknown: No
[2016-07-27] MEDS: cefTRIAXone 2,000 MG in SODIUM CHLORIDE 0.9% 100 ML IV SCH (11:33)
[2016-07-27] MEDS: FLUCONAZOLE INJ 200 MG in PREMIX 1 EACH IV SCH (13:09)
[2016-07-27] MEDS: ENOXAPARIN 40 MG/0.4 ML SYRINGE SUBCUT SCH (21:59)
[2016-07-28] MEDS: SODIUM CHLORIDE 0.9% 1,000 ML IV SCH ×4 (00:22→09:48)
[2016-07-28] MEDS: ACETAMINOPHEN 325 MG TABLET PO PRN (04:25)
--- NOTE | 2016-07-28 09:00 | Hospitalist Progress Note ---
Assessment and Plan (1) Hydronephrosis, bilateral Status: Acute Assessment and plan: I resolved with Carreon catheter placement. This was discontinued by urology yesterday. That is on Flomax 4 mg daily. We will check postvoid bladder scan today. If patient has more than 250 mL of urine in the bladder post void he should have a Carreon catheter replaced. His fevers have gone up if he is retaining again and developing hydronephrosis again that would explain the fevers. Current Visit: Yes (2) Fever Status: Acute Assessment and plan: Persistent and recurrent. I wonder if ara species alone are responsible for these fevers or if occult bacterial infection is contributing too. I will put him back on broad-spectrum antibacterials empirically at this point as I am working up for sepsis. This will include vancomycin 1.25 g IV every 12 hours and cefepime 1 g IV every 8 reassess need of these antibiotics in the coming 72 hour vision will remain in the hospital and can be moved to [facility] Current Visit: Yes (3) UTI (urinary tract infection) Status: Acute Assessment and plan: Demented funguria has been treated with high-dose fluconazole. I am adding vancomycin and cefepime as mentioned above empirically on chance that we have an occult bacterial infection. Reassess anti-infective treatment in 72 hours Current Visit: Yes (4) Leukocytosis Status: Acute Assessment and plan: Repeat his CBC this morning Current Visit: Yes (5) Diabetes mellitus Status: Chronic Current Visit: Yes Qualifiers: Diabetes mellitus type: type 1 Diabetes mellitus complication status: with hyperglycemia Qualified Code(s): E10.65 - Type 1 diabetes mellitus with hyperglycemia Hospitalist: Subjective Interval history: Patient is seen interviewed and examined and chart has been reviewed. I am concerned that he is having a real aggressive fevers but he cannot tell if the use of the fever not. Right now he says "I am doing good." Does not have much in terms of laboratory workup. And is to check CMP, CBC, magnesium, UA with microscopy and urine cultures. Known to have yeast in the urine and started him on higher dose of fluconazole yesterday because of months the yeast is Ara glabrata. Also has Ara albicans in the urine. I stopped all antibacterials yesterday and fever curve went up. Inciting event was that there is a Carreon catheter was removed gentleman appears to have hepatic bladder and retention with hydroureter as there were noted prior to Carreon catheter been placed neurologist has started him on Flomax to improve bladder emptying. Is a possibility he is returning again. Will order bladder scan is more than 250 of postvoid urine catheter reporting wearing a bad until he sees a urologist. Exam - Constitutional Vitals: Period Temp Pulse Resp BP Sys/Borges Pulse Ox Last 24 Hr 97.1 F-102.1 F 18-118 18-20 117-147/70-92 92-98 General appearance: under weight - Head Head exam: Present: normal inspection, other (Mild temporal wasting) - Eye Eye exam: Present: EOMI Pupils: Present: MASOOD - ENT ENT exam: Present: normal oropharynx - Neck Neck exam: Present: other (Supple neck no adenopathy midline trachea no stridor) - Respiratory Respiratory exam: Present: clear to auscultation bilaterally, other (No wheezing no rales no rhonchi) - Cardiovascular Cardiovascular exam: Present: regular rate and rhythm - GI/Abdominal GI/Abdominal exam: Present: normal bowel sounds, soft (No hepatosplenomegaly) - Extremities Exam Extremities exam: Present: full ROM - Back Exam Back exam: Present: other (Symmetric back no CVA tenderness) - Neurological Exam Neurological exam: Present: alert, oriented X3, CN II-XII intact - Psychiatric Psychiatric exam: Present: normal affect, normal mood - Skin Skin exam: Present: normal color, warm, dry Results - Labs CBC & BMP: 07/26/16 06:50 07/26/16 06:50 Lab Results: I have reviewed the past 24 hour labs (These are ordered labs check CMP CBC magnesium UA urine culture and a chest x-ray today) Quality Measures - Stroke Symptom Onset Unknown: No
[2016-07-28] MEDS: TAMSULOSIN 0.4 MG CAPSULE PO SCH (09:46)
[2016-07-28] MEDS: INSULIN LISPRO 100 UNIT/ML SUBCUT SCH ×4 (09:47→23:46)
[2016-07-28] MEDS: INSULIN GLARGINE 100 UNIT/ML SUBCUT SCH ×2 (09:47→23:46)
[2016-07-28] MEDS: POTASSIUM PHOS/SOD PHOS POWDER 250 MG PACK PO SCH ×3 (09:48→23:48)
[2016-07-28 10:09] LABS: Basophils % 0.2 % (0.0-0.8); Eosinophils % 0.2 % (0.00-10.9); Hematocrit 31.9 VOL% (42.0-52.0); Hemoglobin 10.2 GM/DL (14.0-18.0); Immature Granulocytes % 0.8 %; Immature Granulocytes Absolute 0.11 #; Lymphocytes # 1.2 10*3/uL (1.4-4.0); Lymphocytes % 8.7 % (21.2-54.2); Mean Corpuscular Hemoglobin 28 PG (27-34); Mean Platelet Volume 9.4 FL (9.6-12.0); Monocytes # 1.8 10*3/uL (0.11-0.8); Monocytes % 13.5 % (1.7-12.7); Neutrophils # 10.2 10*3/uL (1.4-7.4); Neutrophils % 76.6 % (38.7-73.9); Platelet Count 333 T/CUMM (130-400); Red Blood Count 3.71 MC/CUMM (3.8-5.5); Red Cell Distribution Width 12.5 % (9.3-17.3); White Blood Count 13.3 T/CUMM (4-12)
[2016-07-28 10:49] LABS: Alanine Aminotransferase 46 U/L (16-61); Albumin 1.8 G/DL (3.4-5.0); Alkaline Phosphatase 249 U/L (45-117); Aspartate Amino Transferase 45 U/L (0-37); Bilirubin,Total < 0.39 MG/DL (0.2-1.0); Blood Urea Nitrogen 9 MG/DL (7-18); Calcium 7.7 MG/DL (8.5-10.1); Glucose 226 MG/DL (74-106); Osmolality,Calculated 286.3 MOS/KG (273-304); Potassium 3.7 MMOL/L (3.5-5.1); Sodium 141 MMOL/L (136-145); Total Protein 5.2 G/DL (6.4-8.3)
[2016-07-28] MEDS: FLUCONAZOLE INJ 200 MG in PREMIX 1 EACH IV SCH (11:11)
--- NOTE | 2016-07-28 12:05 | Urology Progress Note ---
Assessment and Plan (1) Urinary retention Status: Acute Assessment and plan: Begin Flomax given voiding trial when he is improved. Current Visit: Yes (2) Monilial cystitis Status: Acute Assessment and plan: Needs to start Diflucan but there is a interaction with Levaquin. We will notify the attending and see if we could stop the Levaquin. Current Visit: Yes Urology - PN: Subj Interval history: He had an elevated residual urine in the Carreon got placed back. He really needs intermittent cath so the catheter will come out. One blood culture was positive for the yeast. This appears to be sepsis from yeast. He will need to be on antifungal probably 3 weeks he will need intermittent catheterization. We will have the nurses begin training patient and Self-Cath Exam - Constitutional Vitals: Period Temp Pulse Resp BP Sys/Borges Pulse Ox Last 24 Hr 96.4 F-102.1 F 18-117 18-19 117-148/70-107 96-99 Results - Labs CBC & BMP: 07/28/16 09:57 07/28/16 09:57
--- NOTE | 2016-07-28 14:58 | XRay Report ---
XR chest 2V Date: 07/28/2016 9:46 AM History: Fever Comparison: 07/24/2016 Technique: PA and lateral chest Findings: The heart is normal in size. Reduced parenchymal findings at the left lung base. Stable mediastinum and osseous structures. Impression: Reduced atelectasis/infiltration at the left lung base with additional chronic scarring. PROCEDURE INTERPRETED AT [facility] DEPARTMENT OF RADIOLOGY Final Report Signed by: Dr. Adela Narayan
[2016-07-28 16:22] LABS: Apearance,Urine Slightly Hazy (Clear); Bacteria,Urine Occasional /HPF (Few); Bilirubin,Urine Negative (Negative); Blood, Urine Large mg/dL (Negative); Glucose,Urine (UA) 150 mg/dL (Negative); Ketones,Urine Negative (Negative); Mucus,Urine Occasional /LPF (Occasional); Nitrite,Urine Negative (Negative); Protein,Urine 100 MG/DL; RBC,Urine 377 /HPF (0-4); Squamous Epithelial Cell,Urine Occasional /HPF (0-10); Urine Color Yellow (Yellow); Urine Specific Gravity 1.006 (1.001-1.035); Urine Urobilinogen < 2.0 EU/DL (0.2-1.0); WBC,Urine 10 /HPF (0-6)
--- NOTE | 2016-07-28 18:31 | ECHO Report ---
Cristobal Hamilton Exam Date: 07/28/2016 16:09 Referring Physician: Technologist: Amelie DAVE Age: 30 Ht (in): Wt (lb): Gender: M Exam Location: [facility] Echo Indications: sepsis, fever BP: / HR: Rhythm: Sinus Technical Quality: IMPRESSIONS Technically adequate study 1+ left atrial enlargement Borderline LV systolic function with ejection fraction estimated 50% without obvious segmental wall motion abnormality Trace to 1+ mitral and tricuspid regurgitation with RVSP 9 mmHg plus RAP MEASUREMENTS (Male / Female) Normal Values 2D ECHO LV Diastolic Diameter PLAX 5.4 cm 4.2 - 5.9 / 3.9 - 5.3 cm LV Systolic Diameter PLAX 4.5 cm LV Fractional Shortening PLAX 17.6 % IVS Diastolic Thickness 1.4 cm 0.6 - 1.0 / 0.6 - 0.9 cm LVPW Diastolic Thickness 1.3 cm 0.6 - 1.0 / 0.6 - 0.9 cm RV Internal Dim ED PLAX 2.5 cm Aortic Root Diameter 3.4 cm LA Systolic Diameter LX 4.0 cm 3.0 - 4.0 / 2.7 - 3.8 cm DOPPLER TR Peak Velocity 151.0 cm/s TR Peak Gradient 9.1 mmHg FINDINGS Left Ventricle Mildly increased septal wall thicknessmild concentric left ventricular hypertrophy. .Left ventricular ejection fraction is estimated at 50-55 %. Right Ventricle Normal right ventricular size and systolic function. Right Atrium Normal right atrial size. Left Atrium Normal left atrial size. Mitral Valve Mildly thickened mitral valve with mild mitral regurgitation. Aortic Valve Aortic valve sclerosis without stenosis or regurgitation. Tricuspid Valve Morphologically normal tricuspid valve. Trace tricuspid valve regurgitation. Pulmonic Valve Morphologically normal pulmonic valve. Pericardium No pericardial effusion. Aorta Normal size aortic root and proximal ascending aorta. Carlitos Marin (Electronically Signed) Final Date: 28 July 2016 18:01
[2016-07-28] MEDS: ENOXAPARIN 40 MG/0.4 ML SYRINGE SUBCUT SCH (23:46)
[2016-07-29] MEDS: SODIUM CHLORIDE 0.9% 1,000 ML IV SCH ×5 (06:05→22:03)
[2016-07-29] MEDS: POTASSIUM PHOS/SOD PHOS POWDER 250 MG PACK PO SCH ×3 (08:08→22:04)
[2016-07-29] MEDS: INSULIN GLARGINE 100 UNIT/ML SUBCUT SCH ×2 (08:08→22:05)
[2016-07-29] MEDS: TAMSULOSIN 0.4 MG CAPSULE PO SCH (08:08)
[2016-07-29] MEDS: INSULIN LISPRO 100 UNIT/ML SUBCUT SCH ×4 (08:08→22:05)
--- NOTE | 2016-07-29 08:35 | Urology Progress Note ---
Assessment and Plan (1) Urinary retention Status: Acute Assessment and plan: Begin Flomax given voiding trial when he is improved. Current Visit: Yes (2) Monilial cystitis Status: Acute Assessment and plan: Needs to start Diflucan but there is a interaction with Levaquin. We will notify the attending and see if we could stop the Levaquin. Current Visit: Yes Urology - PN: Subj Interval history: He is now up on the floor. They have not really catheterized and because the order was as needed but I had told the nurse yesterday catheterizing 3 times daily. He is voiding better. The only way to know is to do the intermittent catheter see what her volumes are. We will do this especially in the face of monilial sepsis and monilial cystitis. Exam - Constitutional Vitals: Period Temp Pulse Resp BP Sys/Borges Pulse Ox Last 24 Hr 96.4 F-99.5 F 83-114 16-18 105-148/67-107 95-99 Results - Labs CBC & BMP: 07/28/16 09:57 07/28/16 09:57
[2016-07-29] MEDS: FLUCONAZOLE INJ 200 MG in PREMIX 1 EACH IV SCH (10:29)
--- NOTE | 2016-07-29 13:45 | Hospitalist Progress Note ---
Assessment and Plan (1) Candidemia Status: Acute Assessment and plan: Likely due to UTI and responding to oral Diflucan but will check echocardiogram. All will also check a white cell count tomorrow Current Visit: Yes (2) UTI (urinary tract infection) Status: Acute Assessment and plan: Secondary to Ara infection. This is part be contributed by hyperglycemia and urinary retention. Patient is educated about good diabetes control Current Visit: Yes (3) Urinary retention Status: Acute Assessment and plan: On Flomax.. Patient being followed by urology. Continue intermittent catheterization 3 times a day as recommended till able to empty bladder completely Current Visit: Yes (4) Diabetes mellitus Status: Chronic Assessment and plan: We'll continue long-acting Lantus insulin with short-acting insulin with meals and monitor blood sugar and adjust insulin if needed Current Visit: Yes Qualifiers: Diabetes mellitus type: type 1 Diabetes mellitus complication status: with hyperglycemia Qualified Code(s): E10.65 - Type 1 diabetes mellitus with hyperglycemia Hospitalist: Subjective Interval history: Mr. Medina is 30 years old male with history of hypertension and diabetes mellitus. He was admitted on 07/22/[address] from [facility]. He was seen there for her dizziness and hypotension and was noted to have hyperglycemia and elevated white count. He initially received antibiotic fluids and insulin and transferred here for further care. Here he was found to have a UTI and grew Ara his blood culture was also positive for Ara. Patient has admitted poor compliance with the insulin. He also has some urinary retention and followed by urology here. He is being on the Flomax and voiding but distally with some residual and recommended 3 times intermittent Bladder catheterization. Patient is now on only Diflucan IV. Patient has been afebrile he's been transferred from telemetry to regular hill Exam - Constitutional Vitals: Period Temp Pulse Resp BP Sys/Borges Pulse Ox Last 24 Hr 97.2 F-99.5 F 91-114 16-20 94-128/56-89 95-99 General appearance: no acute distress - Head Head exam: Present: normal inspection, normocephalic - Eye Eye exam: Present: EOMI Pupils: Present: MASOOD - Respiratory Respiratory exam: Present: clear to auscultation bilaterally. Absent: rales, rhonchi - Cardiovascular Cardiovascular exam: Present: regular rate and rhythm. Absent: tachycardia - GI/Abdominal GI/Abdominal exam: Present: normal bowel sounds, soft. Absent: tenderness - Extremities Exam Extremities exam: Present: normal inspection. Absent: edema - Neurological Exam Neurological exam: Present: alert, oriented X3 Results - Labs CBC & BMP: 07/28/16 09:57 07/28/16 09:57 Lab Results: I have reviewed the past 24 hour labs Quality Measures - Stroke Symptom Onset Unknown: No
[2016-07-29] MEDS: ENOXAPARIN 40 MG/0.4 ML SYRINGE SUBCUT SCH (22:04)
[2016-07-30] MEDS: SODIUM CHLORIDE 0.9% 1,000 ML IV SCH ×2 (04:36→20:15)
[2016-07-30 06:15] LABS: Basophils % 0.2 % (0.0-0.8); Eosinophils # 0.1 10*3/uL (0.0-0.87); Eosinophils % 1.1 % (0.00-10.9); Hematocrit 33.4 VOL% (42.0-52.0); Hemoglobin 10.6 GM/DL (14.0-18.0); Immature Granulocytes % 0.5 %; Immature Granulocytes Absolute 0.07 #; Lymphocytes # 1.9 10*3/uL (1.4-4.0); Lymphocytes % 15.2 % (21.2-54.2); Mean Corpuscular HGB Conc 31.7 GM/DL (32-36); Mean Corpuscular Hemoglobin 28 PG (27-34); Mean Corpuscular Volume 86.8 FL (87-102); Monocytes # 1.4 10*3/uL (0.11-0.8); Neutrophils # 9.2 10*3/uL (1.4-7.4); Platelet Count 459 T/CUMM (130-400); Red Blood Count 3.85 MC/CUMM (3.8-5.5); Red Cell Distribution Width 12.6 % (9.3-17.3); White Blood Count 12.8 T/CUMM (4-12)
[2016-07-30 06:57] LABS: Calcium 7.7 MG/DL (8.5-10.1); Osmolality,Calculated 294.4 MOS/KG (273-304); Potassium 4.8 MMOL/L (3.5-5.1)
--- NOTE | 2016-07-30 08:42 | Urology Progress Note ---
Assessment and Plan (1) Urinary retention Status: Acute Assessment and plan: Begin Flomax given voiding trial when he is improved. Current Visit: Yes (2) Monilial cystitis Status: Acute Assessment and plan: Needs to start Diflucan but there is a interaction with Levaquin. We will notify the attending and see if we could stop the Levaquin. Current Visit: Yes Urology - PN: Subj Interval history: Residual urines are 150 or more. He clearly will need intermittent catheterization. Diabetes is the culprit here diabetes, is the culprit for the monilial sepsis. His bladder may not work efficiently. We will train him the Self-Cath. I have a intubation, that he will not do this. I told the patient that he can become septic again from either yeast or bacteria and that could cost him his life. Hopefully I impressed him to do his cathing. I recommend continue the IV Diflucan for a total of 7 days. I will check back on Tuesday. Exam - Constitutional Vitals: Period Temp Pulse Resp BP Sys/Borges Pulse Ox Last 24 Hr 97.7 F-99.6 F 91-117 18-20 94-135/56-88 95-100 Results - Labs CBC & BMP: 07/30/16 05:54 07/30/16 05:54
[2016-07-30] MEDS: TAMSULOSIN 0.4 MG CAPSULE PO SCH (09:42)
[2016-07-30] MEDS: INSULIN GLARGINE 100 UNIT/ML SUBCUT SCH ×2 (09:42→21:25)
[2016-07-30] MEDS: INSULIN LISPRO 100 UNIT/ML SUBCUT SCH ×4 (09:42→21:24)
[2016-07-30] MEDS: POTASSIUM PHOS/SOD PHOS POWDER 250 MG PACK PO SCH ×3 (09:43→21:26)
[2016-07-30] MEDS: FLUCONAZOLE INJ 200 MG in PREMIX 1 EACH IV SCH (13:02)
--- NOTE | 2016-07-30 14:12 | Hospitalist Progress Note ---
Assessment and Plan (1) Candidemia Status: Acute Assessment and plan: Likely due to UTI and responding to IVl Diflucan , echo no vegetation normal EF All will also check white count elevated but is grossly stable or in fact little improved from yesterday Current Visit: Yes (2) UTI (urinary tract infection) Status: Acute Assessment and plan: Secondary to Ara infection. Probably sec to hyperglycemia and urinary retention. Patient is educated about good diabetes control Current Visit: Yes (3) Urinary retention Status: Acute Assessment and plan: On Flomax.. Patient being followed by urology. Continue intermittent catheterization 3 times a day till documented that he is able to empty bladder completely Current Visit: Yes (4) Diabetes mellitus Status: Chronic Assessment and plan: We'll continue long-acting Lantus insulin with short-acting insulin with meals and monitor blood sugar and adjust insulin if needed. will inquire how much short acting he ahs received as his bs still elevated Current Visit: Yes Qualifiers: Diabetes mellitus type: type 1 Diabetes mellitus complication status: with hyperglycemia Qualified Code(s): E10.65 - Type 1 diabetes mellitus with hyperglycemia Hospitalist: Subjective Interval history: Mr. Medina is 30 years old male with history of hypertension and diabetes mellitus. He was admitted on 07/22/2016 as a transfer from [facility]. He was seen there for her dizziness and hypotension and was noted to have hyperglycemia and elevated white count. He initially received antibiotic fluids and insulin and transferred here for further care. Here he was found to have a UTI and grew Ara his blood culture was also positive for Ara. Patient has been poor with compliance with the insulin at home . He also has some urinary retention and followed by urology here. He is being on the Flomax and voiding. Subjectively asymptomatic breast has residual urine volumes requiring intermittent catheterization. He is on Diflucan IV and is afebrile Exam - Constitutional Vitals: Period Temp Pulse Resp BP Sys/Borges Pulse Ox Last 24 Hr 97.7 F-99.6 F 91-117 18-20 110-135/73-88 95-100 General appearance: no acute distress - Respiratory Respiratory exam: Present: clear to auscultation bilaterally. Absent: rales, rhonchi - Cardiovascular Cardiovascular exam: Present: regular rate and rhythm. Absent: tachycardia - GI/Abdominal GI/Abdominal exam: Present: normal bowel sounds, soft. Absent: distended, tenderness - Extremities Exam Extremities exam: Present: normal inspection. Absent: edema - Neurological Exam Neurological exam: Present: alert, oriented X3 Results - Labs CBC & BMP: 07/30/16 05:54 07/30/16 05:54 Lab Results: I have reviewed the past 24 hour labs Quality Measures - Stroke Symptom Onset Unknown: No
[2016-07-30] MEDS ORDERED: INSULIN LISPRO 100 UNIT/ML SUBCUT SCH (16:30)
[2016-07-30] MEDS: ENOXAPARIN 40 MG/0.4 ML SYRINGE SUBCUT SCH (21:28)
[2016-07-31] MEDS: SODIUM CHLORIDE 0.9% 1,000 ML IV SCH (06:23)
[2016-07-31] MEDS: POTASSIUM PHOS/SOD PHOS POWDER 250 MG PACK PO SCH ×3 (09:03→22:41)
[2016-07-31] MEDS: INSULIN GLARGINE 100 UNIT/ML SUBCUT SCH (09:03)
[2016-07-31] MEDS: TAMSULOSIN 0.4 MG CAPSULE PO SCH (09:03)
[2016-07-31] MEDS: INSULIN LISPRO 100 UNIT/ML SUBCUT SCH ×6 (09:05→22:41)
--- NOTE | 2016-07-31 10:48 | Hospitalist Progress Note ---
Assessment and Plan - Time spent with patient Time spent with patient: Less than 30 minutes (1) Sepsis Status: Acute Assessment and plan: Patient has candidemia likely secondary to underlying UTI secondary to urinary retention. He is on IV fluconazole which we will continue over the weekend and urology we will reassess at this time. Current Visit: Yes Qualifiers: Sepsis type: Ara Qualified Code(s): B37.7 - Candidal sepsis (2) UTI (urinary tract infection) Status: Acute Assessment and plan: Plans as noted above. Current Visit: Yes (3) Diabetes mellitus Status: Chronic Assessment and plan: Blood sugars continue to be poorly controlled. Will continue to adjust insulin as needed. He has not decreased his Lantus to 50 units subcu twice daily and added Humalog 7 units subcu 3 times daily with meals. Current Visit: Yes Qualifiers: Diabetes mellitus type: type 1 Diabetes mellitus complication status: with hyperglycemia Qualified Code(s): E10.65 - Type 1 diabetes mellitus with hyperglycemia (4) Urinary retention Status: Acute Assessment and plan: Patient is on Flomax. We will continue intermittent catheterizations per urologic recommendations. Current Visit: Yes Hospitalist: Subjective Interval history: Mr. Saleh has no complaints today. He is ambulating in the hallway. He has no complaints of abdominal pain, nausea, vomiting, diarrhea, constipation. Exam - Constitutional Vitals: Period Temp Pulse Resp BP Sys/Borges Pulse Ox Last 24 Hr 97.6 F-98.7 F 84-98 16-20 97-120/61-88 97-100 General appearance: no acute distress - Head Head exam: Present: normocephalic, atraumatic - Eye Eye exam: Present: EOMI Pupils: Present: normal accommodation - ENT ENT exam: Present: normal oropharynx - Neck Neck exam: Present: normal inspection - Respiratory Respiratory exam: Present: clear to auscultation bilaterally - Cardiovascular Cardiovascular exam: Present: regular rate and rhythm. Absent: tachycardia - GI/Abdominal GI/Abdominal exam: Present: normal bowel sounds, soft. Absent: mass, tenderness , rebound - Extremities Exam Extremities exam: Absent: calf tenderness, edema - Back Exam Back exam: Present: normal inspection - Neurological Exam Neurological exam: Present: alert, oriented X3, CN II-XII intact. Absent: motor sensory deficit - Psychiatric Psychiatric exam: Present: normal affect, normal mood. Absent: agitated, anxious - Skin Skin exam: Present: warm, dry. Absent: rash Results - Labs CBC & BMP: 07/30/16 05:54 07/30/16 05:54 Lab Results: I have reviewed the past 24 hour labs Quality Measures - Stroke Symptom Onset Unknown: No
[2016-07-31] MEDS ORDERED: INSULIN GLARGINE 100 UNIT/ML SUBCUT SCH (10:55)
[2016-07-31] MEDS: FLUCONAZOLE INJ 200 MG in PREMIX 1 EACH IV SCH (12:00)
[2016-07-31] MEDS: ENOXAPARIN 40 MG/0.4 ML SYRINGE SUBCUT SCH (22:41)
--- NOTE | 2016-08-01 08:22 | Hospitalist Progress Note ---
Assessment and Plan - Time spent with patient Time spent with patient: Less than 30 minutes (1) Sepsis Status: Acute Assessment and plan: Patient has candidemia likely secondary to underlying UTI secondary to urinary retention. He is on IV fluconazole which we will continue over the weekend and urology we will reassess at this time. 08/01/16: Continuing IV fluconazole over the weekend for candidemia secondary to underlying UTI secondary to urinary retention from neurogenic bladder. Urology to reassess in the a.m. Current Visit: Yes Qualifiers: Sepsis type: Ara Qualified Code(s): B37.7 - Candidal sepsis (2) UTI (urinary tract infection) Status: Acute Assessment and plan: Plans as noted above. Current Visit: Yes (3) Diabetes mellitus Status: Chronic Assessment and plan: Blood sugars continue to be poorly controlled. Will continue to adjust insulin as needed. He has not decreased his Lantus to 50 units subcu twice daily and added Humalog 7 units subcu 3 times daily with meals. 08/01/16: Blood sugars appear to be doing better I will adjust his insulin regimen to attempt to avoid early a.m. hypoglycemia. Current Visit: Yes Qualifiers: Diabetes mellitus type: type 1 Diabetes mellitus complication status: with hyperglycemia Qualified Code(s): E10.65 - Type 1 diabetes mellitus with hyperglycemia (4) Urinary retention Status: Acute Assessment and plan: Patient is on Flomax. We will continue intermittent catheterizations per urologic recommendations. Current Visit: Yes Hospitalist: Subjective Interval history: Mr. Hamilton has no complaints today. He is ambulatory in the [facility]. His blood sugar did drop below this morning. He denies any abdominal pain, nausea, vomiting, diarrhea, constipation, chest pain, shortness of breath. Exam - Constitutional Vitals: Period Temp Pulse Resp BP Sys/Borges Pulse Ox Last 24 Hr 97.2 F-99.4 F 78-92 18-20 112-130/59-90 98-100 General appearance: no acute distress - Head Head exam: Present: normocephalic, atraumatic - Eye Eye exam: Present: EOMI Pupils: Present: MASOOD - ENT ENT exam: Present: normal exam - Neck Neck exam: Present: normal inspection - Respiratory Respiratory exam: Present: clear to auscultation bilaterally - Cardiovascular Cardiovascular exam: Present: regular rate and rhythm. Absent: tachycardia - GI/Abdominal GI/Abdominal exam: Present: normal bowel sounds, soft. Absent: distended, mass , tenderness, rebound - Extremities Exam Extremities exam: Absent: calf tenderness, edema - Back Exam Back exam: Present: normal inspection - Neurological Exam Neurological exam: Present: alert, oriented X3, CN II-XII intact. Absent: motor sensory deficit - Psychiatric Psychiatric exam: Present: normal affect, normal mood. Absent: agitated, anxious - Skin Skin exam: Present: warm, dry. Absent: erythema, petechiae, rash Results - Labs CBC & BMP: 07/30/16 05:54 07/30/16 05:54 Lab Results: I have reviewed the past 24 hour labs Quality Measures - Stroke Symptom Onset Unknown: No
[2016-08-01] MEDS: TAMSULOSIN 0.4 MG CAPSULE PO SCH (09:17)
[2016-08-01] MEDS: POTASSIUM PHOS/SOD PHOS POWDER 250 MG PACK PO SCH ×3 (09:17→21:55)
[2016-08-01] MEDS: INSULIN LISPRO 100 UNIT/ML SUBCUT SCH ×7 (09:17→21:56)
[2016-08-01] MEDS: INSULIN GLARGINE 100 UNIT/ML SUBCUT SCH ×2 (09:17→21:55)
[2016-08-01] MEDS: FLUCONAZOLE INJ 200 MG in PREMIX 1 EACH IV SCH (11:41)
[2016-08-01] MEDS: ENOXAPARIN 40 MG/0.4 ML SYRINGE SUBCUT SCH (21:56)
[2016-08-02] MEDS: SODIUM CHLORIDE 0.9% 1,000 ML IV SCH ×3 (03:09→20:24)
[2016-08-02 05:22] LABS: Basophils % 0.2 % (0.0-0.8); Eosinophils # 0.1 10*3/uL (0.0-0.87); Eosinophils % 1.2 % (0.00-10.9); Hematocrit 33.8 VOL% (42.0-52.0); Hemoglobin 10.5 GM/DL (14.0-18.0); Immature Granulocytes % 1.4 %; Immature Granulocytes Absolute 0.17 #; Lymphocytes # 2.3 10*3/uL (1.4-4.0); Lymphocytes % 18.7 % (21.2-54.2); Mean Corpuscular HGB Conc 31.1 GM/DL (32-36); Mean Corpuscular Hemoglobin 27 PG (27-34); Mean Corpuscular Volume 88.3 FL (87-102); Mean Platelet Volume 8.5 FL (9.6-12.0); Monocytes # 0.9 10*3/uL (0.11-0.8); Monocytes % 7.3 % (1.7-12.7); Neutrophils # 8.6 10*3/uL (1.4-7.4); Neutrophils % 71.2 % (38.7-73.9); Platelet Count 539 T/CUMM (130-400); Red Blood Count 3.83 MC/CUMM (3.8-5.5); Red Cell Distribution Width 12.6 % (9.3-17.3); White Blood Count 12.1 T/CUMM (4-12)
[2016-08-02 05:54] LABS: Calcium 8.5 MG/DL (8.5-10.1); Osmolality,Calculated 291.6 MOS/KG (273-304); Potassium 4.7 MMOL/L (3.5-5.1)
[2016-08-02] MEDS: INSULIN LISPRO 100 UNIT/ML SUBCUT SCH ×7 (07:52→20:25)
[2016-08-02] MEDS: POTASSIUM PHOS/SOD PHOS POWDER 250 MG PACK PO SCH ×3 (08:52→20:26)
[2016-08-02] MEDS: INSULIN GLARGINE 100 UNIT/ML SUBCUT SCH ×2 (08:52→20:25)
[2016-08-02] MEDS: TAMSULOSIN 0.4 MG CAPSULE PO SCH (08:52)
[2016-08-02] MEDS: FLUCONAZOLE INJ 200 MG in PREMIX 1 EACH IV SCH (11:35)
[2016-08-02 13:21] LABS: TB Ag minue Nil Result 0.03 IU/mL
--- NOTE | 2016-08-02 17:22 | Urology Progress Note ---
Assessment and Plan (1) Urinary retention Status: Acute Assessment and plan: Begin Flomax given voiding trial when he is improved. Current Visit: Yes (2) Monilial cystitis Status: Acute Assessment and plan: Needs to start Diflucan but there is a interaction with Levaquin. We will notify the attending and see if we could stop the Levaquin. Current Visit: Yes Urology - PN: Subj Interval history: Patient is cathing himself. Residuals are approximately 300 cc. I recommend he continues to do this 3 times a day. We will be making arrangements for him to get his catheters. His white count is 12.1 which is slightly elevated. He still on IV Diflucan. I suspect he will need Diflucan p.o. for 2 weeks after he stopped the IV form. He seems very low and his motivation to take care of his medical problems. Exam - Constitutional Vitals: Period Temp Pulse Resp BP Sys/Borges Pulse Ox Last 24 Hr 97.2 F-98.3 F 82-104 18-20 97-111/56-75 95-100 Results - Labs CBC & BMP: 08/02/16 05:07 08/02/16 05:07
--- NOTE | 2016-08-02 18:40 | Hospitalist Progress Note ---
Assessment and Plan (1) Sepsis Status: Acute Assessment and plan: Patient has candidemia likely secondary to underlying UTI secondary to urinary retention. He is on IV fluconazole. We will repeat UA/UC,BC Current Visit: Yes Qualifiers: Sepsis type: Ara Qualified Code(s): B37.7 - Candidal sepsis (2) UTI (urinary tract infection) Status: Acute Assessment and plan: repeat UA/UC Current Visit: Yes (3) Diabetes mellitus Status: Chronic Assessment and plan: better controlled, continue current regime, DM education, will get HbA1c level Current Visit: Yes Qualifiers: Diabetes mellitus type: type 1 Diabetes mellitus complication status: with hyperglycemia Qualified Code(s): E10.65 - Type 1 diabetes mellitus with hyperglycemia (4) Urinary retention Status: Acute Assessment and plan: Patient is on Flomax. We will continue intermittent catheterizations per urologic recommendations. Current Visit: Yes Hospitalist: Subjective Interval history: Patient seen. He is still cathing himself. Exam - Constitutional Vitals: Period Temp Pulse Resp BP Sys/Borges Pulse Ox Last 24 Hr 97.2 F-98.3 F 82-104 18-20 97-111/56-75 95-100 General appearance: no acute distress - Head Head exam: Present: normal inspection - Eye Eye exam: Present: EOMI - Respiratory Respiratory exam: Present: clear to auscultation bilaterally - Cardiovascular Cardiovascular exam: Present: regular rate and rhythm - GI/Abdominal GI/Abdominal exam: Present: normal bowel sounds - Extremities Exam Extremities exam: Present: normal inspection Results - Labs CBC & BMP: 08/02/16 05:07 08/02/16 05:07 Lab Results: I have reviewed the past 24 hour labs Quality Measures - Stroke Symptom Onset Unknown: No
[2016-08-02] MEDS: ENOXAPARIN 40 MG/0.4 ML SYRINGE SUBCUT SCH (21:31)
[2016-08-03 01:17] LABS: Apearance,Urine CLEAR (Clear); Bilirubin,Urine Negative (Negative); Blood, Urine Small mg/dL (Negative); Glucose,Urine (UA) >=500 mg/dL (Negative); Ketones,Urine Negative (Negative); Nitrite,Urine Negative (Negative); Protein,Urine Negative; RBC,Urine 9 /HPF (0-4); Urine Color Straw (Yellow); Urine Specific Gravity 1.013 (1.001-1.035); Urine Urobilinogen < 2.0 EU/DL (0.2-1.0); WBC,Urine 2 /HPF (0-6)
[2016-08-03] MEDS: SODIUM CHLORIDE 0.9% 1,000 ML IV SCH ×3 (06:08→08:15)
[2016-08-03 06:37] LABS: Basophils % 0.2 % (0.0-0.8); Eosinophils # 0.1 10*3/uL (0.0-0.87); Eosinophils % 0.9 % (0.00-10.9); Hematocrit 32.4 VOL% (42.0-52.0); Hemoglobin 10.2 GM/DL (14.0-18.0); Immature Granulocytes % 1.1 %; Immature Granulocytes Absolute 0.12 #; Lymphocytes # 2.2 10*3/uL (1.4-4.0); Lymphocytes % 20.5 % (21.2-54.2); Mean Corpuscular HGB Conc 31.5 GM/DL (32-36); Mean Corpuscular Hemoglobin 27 PG (27-34); Mean Corpuscular Volume 85.5 FL (87-102); Mean Platelet Volume 8.7 FL (9.6-12.0); Monocytes # 0.7 10*3/uL (0.11-0.8); Monocytes % 6.9 % (1.7-12.7); Neutrophils # 7.5 10*3/uL (1.4-7.4); Neutrophils % 70.4 % (38.7-73.9); Platelet Count 555 T/CUMM (130-400); Red Blood Count 3.79 MC/CUMM (3.8-5.5); Red Cell Distribution Width 12.8 % (9.3-17.3); White Blood Count 10.7 T/CUMM (4-12)
[2016-08-03 07:15] LABS: Calcium 8.4 MG/DL (8.5-10.1); Osmolality,Calculated 294.7 MOS/KG (273-304); Potassium 4.6 MMOL/L (3.5-5.1)
[2016-08-03] MEDS: INSULIN LISPRO 100 UNIT/ML SUBCUT SCH ×4 (08:17→11:43)
[2016-08-03] MEDS: INSULIN GLARGINE 100 UNIT/ML SUBCUT SCH (08:17)
[2016-08-03] MEDS: TAMSULOSIN 0.4 MG CAPSULE PO SCH (08:18)
[2016-08-03] MEDS: POTASSIUM PHOS/SOD PHOS POWDER 250 MG PACK PO SCH (08:20)
--- NOTE | 2016-08-03 10:28 | Discharge Summary ---
<Jessica Schmidt - Last Filed: 08/03/16 10:19> Hospital Course - Hospital Course Hospital Course: Mr. Hamilton is a 30-year-old male admitted by the hospitalist service on 07/22/2016 with UTI sepsis, uncontrolled diabetes due to noncompliance with medicines, and dehydration. Dr. Cami Argueta from urology was consulted due to urinary retention probably due to diabetic cystoscopy. His urine culture showed Ara in the urine and he has been placed on Diflucan for treatment. Patient is also getting intermittent caths 3 times daily for urinary retention and Dr. Argueta is recommending p.o. Diflucan for another 2 weeks after discharge. His diabetes is under much better control with his current regimen and this will be continued for discharge. Patient has reached maximum benefit from this hospitalization. - Time spent with patient Time with patient DS: Less than 30 minutes Discharge Plan - Discharge Data Disposition: Disch To Home/Self Care - Discharge Medications New Tamsulosin [Flomax] 0.4 mg PO DAILY #30 capsule Acetaminophen Tab [Tylenol Tab] 650 mg PO Q4H PRN #0 tablet PRN Reason: Fever, Headache, Mild Pain Fluconazole Tab [Diflucan Tab] 200 mg PO DAILY #7 tablet Insulin Glargine [Lantus] 45 unit SUBCUT BID #14 unit Discontinued Insulin Glargine,Hum.rec.anlog [Lantus SoloStar] 50 unit SUBCUT BEDTIME - Follow Up or Referral - Forms/Instructions Exam - Constitutional Vitals: Period Temp Pulse Resp BP Sys/Borges Pulse Ox Last 24 Hr 98.0 F-98.9 F 77-99 18-20 97-110/63-67 99-100 Discharge Results Procedures and tests throughout hospitalization: Pending Orders 08/02/16 00:00 Urine Culture Routine 08/02/16 18:47 Blood Culture Routine Labs on day of discharge: Labs from last 24 hours 08/03/16 08/03/16 08/03/16 11:40 07:02 05:57 WBC RBC Hgb Hct MCV MCH MCHC RDW Plt Count MPV Neut % (Auto) Lymph % (Auto) [place] % (Auto) Eos % (Auto) Baso % (Auto) Neut # (Auto) Lymph # (Auto) [place] # (Auto) Eos # (Auto) Baso # (Auto) Immature Gran % Nucleated RBC % Immature Gran # Nucleated RBCs # Sodium 145 Potassium 4.6 Chloride 108 H Carbon Dioxide 26 Anion Gap 15.6 H BUN 20 H Creatinine 0.70 GFR Calculation 137 BUN/Creatinine Ratio 28.00 H Glucose 162 H POC Glucose 134 H 124 H Hemoglobin A1c Calculated Osmolality 294.7 Calcium 8.4 L Urine Color Urine Appearance Urine pH Ur Specific [place] Urine Protein Urine Glucose (UA) Urine Ketones Urine Blood Urine Nitrate Urine Bilirubin Urine Urobilinogen Urine Leukocytes Urine RBC Urine WBC Ur Culture Indicated? 08/03/16 08/02/16 08/02/16 05:57 19:45 18:46 WBC 10.7 RBC 3.79 L Hgb 10.2 L Hct 32.4 L MCV 85.5 L MCH 27 MCHC 31.5 L RDW 12.8 Plt Count 555 H MPV 8.7 L Neut % (Auto) 70.4 Lymph % (Auto) 20.5 L [place] % (Auto) 6.9 Eos % (Auto) 0.9 Baso % (Auto) 0.2 Neut # (Auto) 7.5 H Lymph # (Auto) 2.2 [place] # (Auto) 0.7 Eos # (Auto) 0.1 Baso # (Auto) 0.0 Immature Gran % 1.1 Nucleated RBC % 0.0 Immature Gran # 0.12 Nucleated RBCs # 0.00 Sodium Potassium Chloride Carbon Dioxide Anion Gap BUN Creatinine GFR Calculation BUN/Creatinine Ratio Glucose POC Glucose 180 H Hemoglobin A1c > 15.5 H Calculated Osmolality Calcium Urine Color Urine Appearance Urine pH Ur Specific [place] Urine Protein Urine Glucose (UA) Urine Ketones Urine Blood Urine Nitrate Urine Bilirubin Urine Urobilinogen Urine Leukocytes Urine RBC Urine WBC Ur Culture Indicated? 08/02/16 08/02/16 15:10 00:00 WBC RBC Hgb Hct MCV MCH MCHC RDW Plt Count MPV Neut % (Auto) Lymph % (Auto) [place] % (Auto) Eos % (Auto) Baso % (Auto) Neut # (Auto) Lymph # (Auto) [place] # (Auto) Eos # (Auto) Baso # (Auto) Immature Gran % Nucleated RBC % Immature Gran # Nucleated RBCs # Sodium Potassium Chloride Carbon Dioxide Anion Gap BUN Creatinine GFR Calculation BUN/Creatinine Ratio Glucose POC Glucose 202 H Hemoglobin A1c Calculated Osmolality Calcium Urine Color Straw Urine Appearance Clear Urine pH 5.0 Ur Specific [place] 1.013 Urine Protein Negative Urine Glucose (UA) >=500 Urine Ketones Negative Urine Blood Small Urine Nitrate Negative Urine Bilirubin Negative Urine Urobilinogen < 2.0 H Urine Leukocytes Negative Urine RBC 9 Urine WBC 2 Ur Culture Indicated? Not indicated DS: Provider Date of admission: 07/22/16 20:59 Primary care physician: . No PCP Attending physician on admission: Tino Darling MD Consults: 07/24/16 10:38 Consult to Dietitian [CONS] Routine Reason for Dietitian: Dietary Consult Consult Comment: Pro-shayla malnutrition and poor DM control 07/25/16 08:17 Consult to Pharmacy [CONS] Routine Reason for Pharmacy Consult: Dose/Manage Vancomycin 07/25/16 08:24 Consult to Pharmacy [CONS] Routine Reason for Pharmacy Consult: Dose/Manage Antibiotics Comment: please start and dose mycamine 07/25/16 15:08 Consult to Physician [CONS] Routine Comment: re bladder distention, hydroureter. Ok to see AM Consulting Provider: [facility] Consulting Provider Notified: Yes Person Notified: dr. cami argueta Date Notified: 07/25/16 Time Notified: 15:24 Consult Notification Comment: [facility] CALLED ABOUT CONSULT AT 0920 07/26/16 13:08 Consult to Dietitian [CONS] Routine Reason for Dietitian: Supplements and/or Snacks Other Diet Recommendations 07/28/16 14:32 Consult to Case Mgmt/Social Srvs [CONS] Routine Reason for Case Mgmt/Social Srvs: LTAC Consult Comment: pt will need iv antifungals x 3 weeks or more Consult to Liaison [CONS] Routine Reason for Liaison: Other 07/29/16 13:53 Consult to [facility], Educator [CONS] Routine Reason for Budget Controller: Diabetes Education Discharging clinician: LONI Wilkins Expected date of discharge: 08/03/16 <Kristy Denis - Last Filed: 08/03/16 13:55> Hospital Course - Time spent with patient Time with patient DS: Greater than 30 minutes Diagnosis - Discharge Diagnosis (1) Sepsis Status: Acute (2) UTI (urinary tract infection) Status: Acute (3) Diabetes mellitus Status: Chronic (4) Urinary retention Status: Acute Discharge Plan - Discharge Data Condition at Discharge: Stable Discharge Diet: diabetic diet - Forms/Instructions Additional Discharge Instructions: follow PCP in 1week. Log blood sugar tidx 1week prior to visit and take log to PCP. Exam - Constitutional General appearance: no acute distress - Head Head exam: Present: normal inspection - Neck Neck exam: Present: normal inspection - Respiratory Respiratory exam: Present: clear to auscultation bilaterally - Cardiovascular Cardiovascular exam: Present: regular rate and rhythm - GI/Abdominal GI/Abdominal exam: Present: normal bowel sounds - Extremities Exam Extremities exam: Present: normal inspection - Back Exam Back exam: Present: normal inspection - Neurological Exam Neurological exam: Present: alert, oriented X3 - Psychiatric Psychiatric exam: Present: normal affect
[2016-08-03] MEDS: FLUCONAZOLE INJ 200 MG in PREMIX 1 EACH IV SCH (11:42)
[2016-08-03 12:10] VITALS: BP 100/67
== END 2016-08-03 14:30 | disposition home or self-care (01) | DRG 871 ==
LOC: N.ED 19:44 → MERGE 20:59 → SUATTDRO 20:59 → N.EDINP 20:59 → N.TELEN 21:59 → N.5E 07-28 15:50
PROVIDERS: ADMIT Internal Medicine; ATTEND Internal Medicine

== ENCOUNTER 2016-09-04 08:51 | Inpatient (IN) ==
[2016-09-04] MEDS ORDERED: DEXTROSE 50% 25 GM/50 ML VIAL IV PRN ×2 (09:54)
[2016-09-04] MEDS ORDERED: GLUCAGON 1 MG VIAL IM PRN ×2 (09:54)
[2016-09-04] MEDS ORDERED: ONDANSETRON 4 MG/2 ML VIAL IV PRN (09:59)
[2016-09-04] MEDS ORDERED: ZALEPLON 5 MG CAPSULE PO PRN (09:59)
[2016-09-04] MEDS ORDERED: ACETAMINOPHEN 325 MG TABLET PO PRN (09:59)
[2016-09-04] MEDS ORDERED: DOCUSATE SODIUM 100 MG CAPSULE PO PRN (09:59)
[2016-09-04] MEDS ORDERED: LEVOFLOXACIN INJ 500 MG in PREMIX 1 EACH IV SCH (10:00)
[2016-09-04] MEDS ORDERED: PIPERACILLIN/TAZOBACTAM 3,375 MG in SODIUM CHLORIDE 0.9% 100 ML IV SCH (10:00)
[2016-09-04] MEDS: INSULIN REGULAR 100 UNIT/ML SUBCUT SCH ×3 (15:05→21:24)
[2016-09-04 15:36] LABS: Basophils % 0.1 % (0.0-0.8); Eosinophils # 0.1 10*3/uL (0.0-0.87); Eosinophils % 0.7 % (0.00-10.9); Hematocrit 28.3 VOL% (42.0-52.0); Hemoglobin 8.6 GM/DL (14.0-18.0); Immature Granulocytes % 0.7 %; Immature Granulocytes Absolute 0.06 #; Lymphocytes # 1.6 10*3/uL (1.4-4.0); Lymphocytes % 18.8 % (21.2-54.2); Mean Corpuscular HGB Conc 30.4 GM/DL (32-36); Mean Corpuscular Hemoglobin 26 PG (27-34); Mean Corpuscular Volume 85.5 FL (87-102); Mean Platelet Volume 8.9 FL (9.6-12.0); Monocytes # 0.5 10*3/uL (0.11-0.8); Monocytes % 5.6 % (1.7-12.7); Neutrophils # 6.3 10*3/uL (1.4-7.4); Neutrophils % 74.1 % (38.7-73.9); Platelet Count 392 T/CUMM (130-400); Red Blood Count 3.31 MC/CUMM (3.8-5.5); Red Cell Distribution Width 14.2 % (9.3-17.3); White Blood Count 8.5 T/CUMM (4-12)
[2016-09-04 16:01] LABS: Alanine Aminotransferase 15 U/L (16-61); Albumin 2.2 G/DL (3.4-5.0); Alkaline Phosphatase 169 U/L (45-117); Aspartate Amino Transferase 21 U/L (0-37); Bilirubin,Total < 0.39 MG/DL (0.2-1.0); Blood Urea Nitrogen 15 MG/DL (7-18); Calcium 7.8 MG/DL (8.5-10.1); Glucose 253 MG/DL (74-106); Magnesium 1.9 MG/DL (1.8-2.4); Osmolality,Calculated 288.4 MOS/KG (273-304); Phosphorous 3.4 MG/DL (2.5-4.9); Potassium 4.1 MMOL/L (3.5-5.1); Sodium 140 MMOL/L (136-145); Total Protein 7.1 G/DL (6.4-8.3)
[2016-09-04 16:07] LABS: Risk Ratio 1.88; Thyroid Stimulating Hormone 1.59 uIU/ml (0.358-3.74); VLDL CHOLESTEROL 41.4 MG/DL
--- NOTE | 2016-09-04 16:12 | Hospitalist History & Physical ---
Assessment and Plan (1) Generalized weakness Status: Resolved Assessment and plan: The patient has generalized weakness and inability to ambulate. The patient has liquid stools. We will get a culture the stools and check for fecal fat. Will check C. difficile toxin study. We will obtain GI consultation. The patient was identified with pyuria at [facility] but had no growth on urine culture. I am going to recheck urinalysis now and discontinue antibiotics. We will culture the urine and treat any infection which is found. We will get the patient back on intermittent bladder catheterization program and check for postvoid residual. The patient has mild metabolic acidosis which is compensated. I am going to add some sodium bicarbonate tablets and see if we can get the bicarbonate back into normal range. The patient may have some diabetic changes resulting in renal tubular acidosis. Current Visit: No (2) Hypotension Status: Resolved Current Visit: No (3) Diabetes mellitus Status: Chronic Current Visit: No Qualifiers: Diabetes mellitus type: type 1 Diabetes mellitus complication status: with hyperglycemia Qualified Code(s): E10.65 - Type 1 diabetes mellitus with hyperglycemia History of Present Illness Chief complaint: Low blood pressure, weakness, diarrhea History of present illness: Mr. Hamilton is a 30 year old male with history of diabetes mellitus. The patient has been poorly controlled for several years. 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 The patient was discharged from [facility] about 6 weeks ago with instructions to catheterize the bladder 3 times daily. The patient did not adhere to therapy suggestions. The patient has been at home and then recently hospitalized at [facility] due to ongoing liquid stools and thought to have recurring urinary tract infection. The patient's urine was cultured here at [place] on August 18 and showed 50,000 colony-forming units per milliliter of enterococcus. During the last hospital stay at [place] the patient had loose stools and colonoscopy was performed to evaluate for inflammatory bowel disease. Extensive biopsies throughout the terminal ileal revealed normal mucosa. The patient was transferred to [facility] today due to concerns about urinary infection and ongoing liquid stools. The patient does not complain of fever, chills, abdominal pain, CVA tenderness. The patient does complain of liquid stools which worsen when eating and he has about 2 stools overnight. The patient's symptoms are moderate, continuous, and have not worsened. The patient is now admitted to the hospital for reevaluation of symptoms. Home Medications Medication Instructions Recorded Confirmed Type Insulin Detemir [Levemir] 45 unit SUBCUT BEDTIME 04/25/15 09/04/16 History Fluconazole Tab [Diflucan Tab] 200 mg PO DAILY #7 tablet 08/03/16 09/04/16 Rx Tamsulosin [Flomax] 0.4 mg PO DAILY #30 capsule 08/03/16 09/04/16 Rx Colesevelam [Welchol] 625 mg PO BID 09/04/16 09/04/16 History Diphenoxylate/Atrop 2.5-0.025 2 tablet PO Q6H PRN 09/04/16 09/04/16 History [Lomotil Tab] Mupirocin [Mupirocin 2% Oint] 1 applic TOP TID 09/04/16 09/04/16 History Allergies Allergy/AdvReac Type Severity Reaction Status Date / Time sulfamethoxazole Allergy Verified 04/25/15 07:15 [From Bactrim] trimethoprim [From Bactrim] Allergy Verified 04/25/15 07:15 Medical,Surgical,& Family Hx - Medical History Cardio: History of: Hypertension Neurology: No history of: Seizures HEENT: History of: Eye Problem (bilateral cataracts) Endocrine: History of: Diabetes Mellitus (IDDM) Gastrointestinal: History of: GI Problems (diarrhea) - Surgical History Thoracic Surgeries: Patient denies;: Organ Transplant Abdominal Surgeries: Patient denies: Abdominal Surgery - Family History Family History: Reports;: Family Diabetes (mom, dad, brother, and isiter) Denies;: Family Anesthesia Reaction - Social History Smoking Status: Never smoker Marital Status: Single Lives With:: Parent Functional capacity: independent ambulation 12 point system: reviewed and no additional remarkable complaints except as stated Exam - Constitutional Vitals: Period Temp Pulse Resp BP Sys/Borges Pulse Ox Last 24 Hr 97.9 F 84 16 111/72 100 Exam: Constitutional System: No distress. No tremulousness. The patient states that he had lost a lot of weight prior to the last hospital stay but that he is gradually increasing weight now back to normal Head: Normocephalic, atraumatic. Ears, Nose and Throat System: No evidence of Otitis or Mastoiditis. No epistaxis or discharge Eyes System: Pupils equal, round, and reactive. Extraocular muscles intact. Neck: Supple, without adenopathy, No jugular venous distention. No thyromegaly , neck mass, or prior surgery apparent. Respiratory System: Chest clear to auscultation. Cardiovascular System: Heart with regular rate and rhythm. No murmur. GI System: Abdomen soft, nontender. Normo active bowel sounds present. Musculoskeletal System: limbs with no pedal edema. Full distal pulses. There is muscular wasting of extremities Neurological System: No discernable sensory deficit. No aphasia Psychiatric System: Conversation is rational Results - Labs CBC & BMP: 09/04/16 15:23 Lab Results: I have reviewed the past 24 hour labs
[2016-09-04] MEDS: SODIUM CHLORIDE 0.45% 1,000 ML IV SCH (16:27)
[2016-09-04 16:50] LABS: HIV Antigen/Antibody Result Nonreactive (Nonreactive); Hepatitis A Ab IgM Quant 0.11 Index; Hepatitis A Ab IgM Result Negative (Negative); Hepatitis B Core IgM Quant 0.18 Index; Hepatitis B Core IgM Result Negative (Negative); Hepatitis B Surface Ag Quant 0.48 Index; Hepatitis B Surface Ag Result Negative (Negative); Hepatitis C Virus Ab Result Negative (Negative)
[2016-09-04] MEDS: TAMSULOSIN 0.4 MG CAPSULE PO SCH (17:04)
[2016-09-04 19:25] LABS: Apearance,Urine Slightly Hazy (Clear); Bilirubin,Urine Negative (Negative); Blood, Urine Negative (Negative); Glucose,Urine (UA) >=500 mg/dL (Negative); Ketones,Urine Negative (Negative); Mucus,Urine Occasional /LPF (Occasional); Nitrite,Urine Negative (Negative); Protein,Urine Negative; RBC,Urine 4 /HPF (0-4); Urine Color Yellow (Yellow); Urine Specific Gravity 1.012 (1.001-1.035); Urine Urobilinogen < 2.0 EU/DL (0.2-1.0); WBC,Urine 55 /HPF (0-6)
[2016-09-04 19:43] LABS: Barbiturates Screen,Urine Negative (Negative); Benzodiazepines Screen,Urine Negative (Negative); Cannabinoid Screen,Urine Negative (Negative); Opiate Screen,Urine Negative (Negative); Phencyclidine Screen,Urine Negative (Negative)
[2016-09-04] MEDS: ENOXAPARIN 40 MG/0.4 ML SYRINGE SUBCUT SCH (21:23)
[2016-09-04] MEDS: COLESEVELAM 625 MG TABLET PO SCH (21:24)
[2016-09-04] MEDS: SODIUM BICARBONATE 650 MG TABLET PO SCH (21:24)
[2016-09-05 05:12] LABS: Basophils % 0.2 % (0.0-0.8); Eosinophils # 0.1 10*3/uL (0.0-0.87); Eosinophils % 0.4 % (0.00-10.9); Hematocrit 27.4 VOL% (42.0-52.0); Hemoglobin 8.6 GM/DL (14.0-18.0); Immature Granulocytes % 0.6 %; Immature Granulocytes Absolute 0.07 #; Lymphocytes % 17.6 % (21.2-54.2); Mean Corpuscular HGB Conc 31.4 GM/DL (32-36); Mean Corpuscular Hemoglobin 26 PG (27-34); Mean Corpuscular Volume 83.5 FL (87-102); Monocytes # 0.6 10*3/uL (0.11-0.8); Monocytes % 5.6 % (1.7-12.7); Neutrophils # 8.4 10*3/uL (1.4-7.4); Neutrophils % 75.6 % (38.7-73.9); Platelet Count 388 T/CUMM (130-400); Red Blood Count 3.28 MC/CUMM (3.8-5.5); Red Cell Distribution Width 14.2 % (9.3-17.3); White Blood Count 11.2 T/CUMM (4-12)
[2016-09-05] MEDS: SODIUM CHLORIDE 0.45% 1,000 ML IV SCH ×3 (05:26→19:28)
[2016-09-05 05:49] LABS: Albumin 2.3 G/DL (3.4-5.0); Bilirubin,Total 0.8 MG/DL (0.2-1.0); Calcium 8.2 MG/DL (8.5-10.1); Magnesium 1.8 MG/DL (1.8-2.4); Osmolality,Calculated 287.5 MOS/KG (273-304); Phosphorous 3.1 MG/DL (2.5-4.9); Potassium 4.4 MMOL/L (3.5-5.1); Total Protein 6.8 G/DL (6.4-8.3)
[2016-09-05] MEDS: PANTOPRAZOLE 40 MG TABLET PO SCH (08:09)
[2016-09-05] MEDS: SODIUM BICARBONATE 650 MG TABLET PO SCH ×3 (08:09→21:34)
[2016-09-05] MEDS: COLESEVELAM 625 MG TABLET PO SCH ×2 (08:09→21:34)
[2016-09-05] MEDS: TAMSULOSIN 0.4 MG CAPSULE PO SCH (08:09)
[2016-09-05] MEDS: DIPHENOXYLATE/ATROPINE 2.5-0.025 MG TABLET PO PRN ×2 (08:09→21:34)
[2016-09-05] MEDS: INSULIN REGULAR 100 UNIT/ML SUBCUT SCH ×4 (08:10→21:36)
--- NOTE | 2016-09-05 09:50 | Gastrointestinal Consult Note ---
Assessment and Plan - Time spent with patient Time spent with patient: Greater than 30 minutes (1) Diarrhea Status: Acute Current Visit: Yes (2) Other specified counseling Status: Acute Current Visit: Yes History of Present Illness History of present illness: Mr. Hamilton is a 30 year old male Home Medications Medication Instructions Recorded Confirmed Type Insulin Detemir [Levemir] 45 unit SUBCUT BEDTIME 04/25/15 09/04/16 History Fluconazole Tab [Diflucan Tab] 200 mg PO DAILY #7 tablet 08/03/16 09/04/16 Rx Tamsulosin [Flomax] 0.4 mg PO DAILY #30 capsule 08/03/16 09/04/16 Rx Colesevelam [Welchol] 625 mg PO BID 09/04/16 09/04/16 History Diphenoxylate/Atrop 2.5-0.025 2 tablet PO Q6H PRN 09/04/16 09/04/16 History [Lomotil Tab] Mupirocin [Mupirocin 2% Oint] 1 applic TOP TID 09/04/16 09/04/16 History Allergies Allergy/AdvReac Type Severity Reaction Status Date / Time sulfamethoxazole Allergy Verified 04/25/15 07:15 [From Bactrim] trimethoprim [From Bactrim] Allergy Verified 04/25/15 07:15 Medical,Surgical,& Family Hx - Medical History Cardio: History of: Hypertension Neurology: No history of: Seizures HEENT: History of: Eye Problem (bilateral cataracts) Endocrine: History of: Diabetes Mellitus (IDDM) Genitourinary: History of: Bladder Problem (retention) Gastrointestinal: History of: GI Problems (diarrhea) - Surgical History Thoracic Surgeries: Patient denies;: Organ Transplant Abdominal Surgeries: Patient denies: Abdominal Surgery - Family History Family History: Reports;: Family Diabetes (mom, dad, brother, and isiter) Denies;: Family Anesthesia Reaction - Social History Smoking Status: Never smoker Exam - Constitutional Vitals: Period Temp Pulse Resp BP Sys/Borges Pulse Ox Last 24 Hr 97.9 F-99.0 F 84-110 16-24 82-111/49-74 98-100 Results - Labs CBC & BMP: 09/05/16 04:45 09/05/16 04:45 Note Addendum: PLEASE NOTE -- automatic citation of patient information is unavoidable in this electronic note. I have made a reasonable effort to review the information cited , but it is not a part of my evaluation, impression, or recommendation unless specifically discussed in the dictated text that follows. As well, voice recognition software was used in the creation of this clinical note. Reasonable effort was made to identify and correct gross errors. Despite proofreading, errors in eeg tech may be present, including nonsense verbiage at times. If you encounter such an error, please contact me at for discussion and correction. -- Kim Chief complaint: diarrhea History of present illness: This is a new patient, a 30-year-old male seen by consultation for evaluation of persistent diarrhea. The patient is admitted to the hospitalist service under the care of Dr. Helms with a primary diagnosis of generalized weakness. The patient was admitted via transfer from [facility] with primary complaint of ongoing liquid stools and weakness. Evaluation at the outside institution apparently revealed urinary tract infection but did not reveal evidence of gut -related infection. Further evaluation here has been negative for Clostridium difficile infection for evidence of infectious enterocolitis. The patient reports that he has been having diarrhea, 3 to 5 bowel movements per day, for several years. He believes that he has worsening symptoms with eating but has not identified a particular food trigger. He reports that his stools are generally liquid and watery and also notes a fatty component. He suffers from insulin-dependent diabetes and admits that he has not had very good control of this condition. He underwent diagnostic colonoscopy with Dr. Uribe, late 2014, with biopsies taken in the terminal ileum and several areas of the:. This examination did not reveal evidence of inflammatory bowel disease, neither microscopic colitis or infectious enterocolitis. Presently, the patient is fairly comfortable. He reports only one bowel movement so far today. Patient denies fever, chills, night sweats, rigors, headache, dizziness, neck pain, visual changes, redness of the eyes, dysphagia, odynophagia, difficulty chewing, chest pain, shortness of breath, abdominal pain, weight loss, regurgitation, hematemesis, hematochezia, melena, proctalgia, constipation,, skin changes, temperature regulation issues, flushing, easy bleeding/bruising, mental status change, numbness/weakness in the extremities, yellowing of the eyes/skin, cutaneous eruptions, family history of gastrointestinal cancer and colon polyps, and other complaints in general. Review of systems: 12 point review of systems was negative except as documented above. Outpatient medications: insulin, Diflucan, Flomax, welchol, Lomotil Inpatient medications: Tylenol, Welchol, Lomotil, Colace, Lovenox, [place], Humulin, Zofran, Protonix, sodium bicarbonate, Flomax, Sonata, 1/2NS infusion Past Medical History: hypertension, cataract, diabetes, persistent diarrhea Social history: negative tobacco. Negative alcohol Family history: no gastrointestinal cancers Physical examination: Vital Signs: Current vital signs reviewed and documented above. General Appearance: lying in bed. Comfortable. No apparent distress. Head: Normocephalic. Neck: Palpation of the neck revealed no abnormalities. Eyes: No scleral icterus. No scleral injection. No conjunctival pallor. Oral Cavity: Odor of breath was normal. No drooling was observed. Lips showed no abnormalities. Floor of the mouth showed no abnormalities. Pharynx: Oropharynx was normal. Lungs: Respiration rhythm and depth was normal. Cardiovascular: Heart rate and rhythm were normal. No murmurs were appreciated. Abdomen: abdomen was not distended. Abdominal palpation revealed no tenderness and no hepatosplenomegaly. Ascites was not discovered. Abdominal auscultation revealed positive bowel sounds. Musculoskeletal System: Musculoskeletal system was grossly normal. Neurological: level of consciousness was normal. Speech was normal. Skin: General appearance was normal. Color and pigmentation were normal. No skin lesions. Laboratory: white blood count 11.2, hemoglobin 8.6, hematocrit 27.4, platelets 388, ALT 16, AST 13, alkaline phosphatase 173, albumin 2.3, sodium 139, potassium 4.4, chloride 111, CO2 19, BUN 16, creatinine 1.0, glucose 281, stool culture negative at 12 hours, Clostridium difficile screen negative, fecal leukocytes negative Radiology: CT of the chest abdomen and pelvis, July 22, 2016 -- small hiatus hernia with progressive dilation of the esophagus leading to retention of food; colonic diverticulosis Impressions: 1. Diarrhea -- the differential diagnosis includes diabetic related gastropathy or enteropathy, exocrine pancreatic insufficiency, irritable bowel syndrome, and many, many others. There is no evidence of infectious enterocolitis, neither of inflammatory enterocolitis. At this point, I recommend screening stool for access fat excretion as well as for pancreatic elastase. This may help to point in the correct direction but he will likely need further outpatient evaluation and management in the G.I. clinics. There is not indication for urgent colonoscopy at this point. 2. Abnormal imaging of the esophagus -- the patient is equivocal on the question of gastroesophageal reflux as well as dysphagia. CT of the chest seems to imply distal esophageal stricture in with retention of foodstuffs in the esophagus. The patient does not appear to have an impact esophagus presently but he will need to have endoscopic evaluation of the esophagus and upper G.I. tract. This exam will also allow inspection small bowel to ensure there is no evidence of melt disease. This can also be done in the outpatient setting and I will leave the timing of this to Dr. Uribe. 3. Other specified counseling -- The patient was seen for greater than 30 minutes. The patient was counseled for greater than 50% of this time regarding differential diagnosis, likely diagnosis, diagnostic and therapeutic alternatives, risks/benefits/alternatives of medications and procedures, and plan of care generally. The patient expressed understanding and wishes to proceed. Recommendations: -- fecal fat assay -- pancreatic elastase assay -- antidiarrheal is okay -- upper endoscopy with timing per Dr. Uribe -- thank you for this consult. Dr. Uribe will assume G.I. care for this patient tomorrow.
--- NOTE | 2016-09-05 12:20 | Hospitalist Progress Note ---
Assessment and Plan (1) Generalized weakness Status: Resolved Assessment and plan: The patient has generalized weakness and inability to ambulate. The patient's liquid stools have slowed. Stool studies reveal no evidence of infection or C. difficile. The patient was identified with pyuria at [facility] but had no growth on urine culture. We continue off antibiotics. We will culture the urine and treat any infection which is found. We will get the patient back on intermittent bladder catheterization program and check for postvoid residual. The patient has mild metabolic acidosis which is compensated. Acidosis continues despite bicarbonate tablets. Current Visit: No (2) Hypotension Status: Resolved Current Visit: No (3) Diabetes mellitus Status: Chronic Current Visit: No Qualifiers: Diabetes mellitus type: type 1 Diabetes mellitus complication status: with hyperglycemia Qualified Code(s): E10.65 - Type 1 diabetes mellitus with hyperglycemia Hospitalist: Subjective Interval history: The patient was transferred from [facility] with concerns about urinary tract infection. The patient has diabetes mellitus type 1 and poorly controlled for many years. 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 He was discharged from [place] with instructions to self cath 3 times a day. The patient did that for a few weeks but when urinalysis at the [facility] revealed no infection he discontinue this practice. After admission to the hospital here we discontinued antibiotics and obtain urine culture. At the present time there is no growth on culture. The patient does not have any fever or other symptoms of UTI. He voided 400 cc and then had post void residual 400 cc on self cath according to the nurse's note. The patient will need to resume self cath 3 times a day. We are going to continue observation and anticipate discharge home tomorrow. The patient's diarrhea symptoms are improving. Exam - Constitutional Vitals: Period Temp Pulse Resp BP Sys/Borges Pulse Ox Last 24 Hr 97.9 F-99.0 F 84-110 16-24 82-111/49-74 98-100 Exam: Constitutional System: No distress. No tremulousness. The patient states that he had lost a lot of weight prior to the last hospital stay but that he is gradually increasing weight now back to normal Head: Normocephalic, atraumatic. Ears, Nose and Throat System: No evidence of Otitis or Mastoiditis. No epistaxis or discharge Eyes System: Pupils equal, round, and reactive. Extraocular muscles intact. Neck: Supple, without adenopathy, No jugular venous distention. No thyromegaly , neck mass, or prior surgery apparent. Respiratory System: Chest clear to auscultation. Cardiovascular System: Heart with regular rate and rhythm. No murmur. GI System: Abdomen soft, nontender. Normo active bowel sounds present. Musculoskeletal System: limbs with no pedal edema. Full distal pulses. There is muscular wasting of extremities Neurological System: No discernable sensory deficit. No aphasia Psychiatric System: Conversation is rational Results - Labs CBC & BMP: 09/05/16 04:45 09/05/16 04:45 Lab Results: I have reviewed the past 24 hour labs
[2016-09-05] MEDS: ENOXAPARIN 40 MG/0.4 ML SYRINGE SUBCUT SCH (21:34)
[2016-09-06] MEDS: SODIUM CHLORIDE 0.45% 1,000 ML IV SCH ×3 (01:39→10:06)
--- NOTE | 2016-09-06 01:50 | Consultation ---
ROOM #: [id number] Mr. Hamilton is a 30-year-old [place] male who is diabetic. He has been known diabetic about six years and both parents were diabetic as is his younger brother. The patient was hospitalized several wee ks ago and found to have neurogenic bladder. He was evaluated fully by Dr. Henok Damon who found t o have a neurogenic bladder and recommended he catheterized himself three times daily. He was told to have to do that and he did do that for three weeks or so after he got out of the hospital. He st opped doing his intermittent catheterization because he thought he was doing okay. He got sicker an d presented to the clinic yesterday where he was transferred here for admission. He was initially r unning sugars around 700 and they were about 200 yesterday morning. He also has blackout spells, it sounds like he has autonomic problem and has hypotension. The patient also has chronic diarrhea an d has distended bile by report on imaging. Apparently, all of his workup for inflammatory and infec tious problems negative. I suspect he may have neurogenic bile as well as neurogenic bladder. Also , with the blackouts from his autonomic nervous system problem. The patient is catheterizing again since he has been here. Most recent catheterization was after he had just voided 300 mL and got 700 ml out of the bladder. Since he has already been worked up, there is no reason for him to have an additional workup as he just needs to catheterize himself on a regular basis. Urine culture was neg ative. Apparently, he had received ertapenem at the [facility] or hospital before the culture w as reported as negative. Please re-consult Dr. Damon if additional input needed, but the intermittent catheterization is going to the secret to success in dealing with this problem. He probably does not need any additio nal workup.
[2016-09-06 06:28] LABS: Basophils % 0.4 % (0.0-0.8); Eosinophils # 0.1 10*3/uL (0.0-0.87); Hematocrit 31.2 VOL% (42.0-52.0); Hemoglobin 9.6 GM/DL (14.0-18.0); Immature Granulocytes % 0.6 %; Immature Granulocytes Absolute 0.04 #; Lymphocytes # 2.1 10*3/uL (1.4-4.0); Lymphocytes % 29.9 % (21.2-54.2); Mean Corpuscular HGB Conc 30.8 GM/DL (32-36); Mean Corpuscular Hemoglobin 26 PG (27-34); Mean Corpuscular Volume 84.1 FL (87-102); Mean Platelet Volume 8.9 FL (9.6-12.0); Monocytes # 0.5 10*3/uL (0.11-0.8); Monocytes % 7.5 % (1.7-12.7); Neutrophils # 4.3 10*3/uL (1.4-7.4); Neutrophils % 60.6 % (38.7-73.9); Platelet Count 402 T/CUMM (130-400); Red Blood Count 3.71 MC/CUMM (3.8-5.5); Red Cell Distribution Width 14.3 % (9.3-17.3); White Blood Count 7.1 T/CUMM (4-12)
--- NOTE | 2016-09-06 06:56 | Gastrointestinal Progress Note ---
Assessment and Plan (1) Diarrhea Status: Acute Assessment and plan: This patient's stool is negative for C. difficile. He had undergone previous colonoscopy by myself back in 2014 with unremarkable pathology despite an elevated ASCA level that might have been associated with Crohn's disease. GI x- ray seem to show indications of abnormalities in the stomach with potential retained food and possible esophagitis by report. I will perform upper endoscopy tomorrow, looking for celiac sprue. My concern is that with his low- grade diarrhea we are excessively treating him with both Colestid and Lomotil. I have cut the Lomotil back to 2 pills twice daily. He has not had his gallbladder out and I am less concerned about bile acid diarrhea-- if he has not had any bowel movements today, I will likely discontinue the Colestid tomorrow. Current Visit: Yes (2) Abnormal weight loss Status: Acute Assessment and plan: This patient is 6 feet tall and has a BMI of almost 20%. He appears to be quite thin. He lost 25 pounds when I saw him last back in 2014. I will have to research his exact weight loss with our clinic records and compare this to his current weight. I remain concerned that he might still have Crohn's disease but not in the colon. Celiac sprue does remain a potential cause as well. Patient states that he feels better if he is on a low lactose diet and I have adjusted his diabetic diet accordingly. Current Visit: Yes (3) Anemia Status: Acute Assessment and plan: Again we are proceeding with upper endoscopy. There is no lower endoscopy cause for the patient's anemia. This could be also consistent with celiac sprue. I will go ahead and order a celiac sprue panel as well. Current Visit: Yes (4) Abnormal findings on radiological examination of gastrointestinal tract Status: Acute Assessment and plan: According to Dr. Strickland notes the CT scan of the chest seems to indicate distal esophageal stricture with retention of food stuff in the stomach most likely. This could certainly be diabetic gastroparesis. We will look for evidence of esophageal stricturing, achalasia and gastroparesis as well as celiac sprue on tomorrow's upper endoscopy. We will need the patient off of Lovenox in order to safely obtained biopsy samples. Current Visit: Yes Gastroenterology - PN: Subj Interval history: My thanks to Dr. Alvarez who saw this patient for me yesterday. John remains a 30-year-old [place] male who has a history of mild diarrhea 3-5 times per day who is feeling generally fatigued and feels that his blood pressure is low. His diarrhea is rather low-grade although he has been found to have a high ASCA level which is sometimes correlated with Crohn's he had a colonoscopy done in 2014 which showed no evidence of inflammatory bowel disease. He is here again getting a workup for his diarrhea. We will perform a upper endoscopy tomorrow to check him for celiac sprue. Unfortunately this could not be done today, the patient was placed on Lovenox on his admission. This is been discontinued. Exam (Progress Note) - Constitutional Vitals: Period Temp Pulse Resp BP Sys/Borges Pulse Ox Last 24 Hr 97.4 F-98.4 F 78-90 16-20 82-110/49-67 97-100 General appearance: mild distress - Head Head exam: Present: normocephalic - Eye Eye exam: Present: EOMI Pupils: Present: MASOOD - Respiratory Respiratory exam: Present: clear to auscultation bilaterally - Cardiovascular Cardiovascular exam: Absent: regular rate and rhythm - GI/Abdominal GI/Abdominal exam: Present: normal bowel sounds. Absent: distended, guarding - Back Exam Back exam: Present: normal inspection - Neurological Exam Neurological exam: Present: alert, oriented X3, CN II-XII intact. Absent: motor sensory deficit - Psychiatric Psychiatric exam: Present: normal affect, normal mood - Skin Skin exam: Present: warm Results - Labs CBC & BMP: 09/06/16 05:44 09/05/16 04:45
[2016-09-06 06:57] LABS: Calcium 8.4 MG/DL (8.5-10.1); Osmolality,Calculated 287.5 MOS/KG (273-304); Potassium 4.1 MMOL/L (3.5-5.1)
--- NOTE | 2016-09-06 08:11 | Hospitalist Progress Note ---
Assessment and Plan (1) Diarrhea Status: Acute Assessment and plan: He continues to experience mild diarrhea. Studies for C. Difficile have been negative. He continues to undergo GI evaluation by Dr. Uribe. Current Visit: Yes (2) Anemia Status: Acute Assessment and plan: His hematocrit and hemoglobin today are 31.2 and 9.6 respectively, mildly increased from yesterday. Current Visit: Yes Qualifiers: Anemia type: unspecified type Qualified Code(s): D64.9 - Anemia, unspecified (3) Diabetes mellitus Status: Chronic Assessment and plan: His blood glucoses have been been between 156-349. He is presently being treated with this sliding scale regular insulin coverage. I will begin him on Lantus 10 units subcutaneous nightly. Current Visit: No Qualifiers: Diabetes mellitus type: type 1 Diabetes mellitus complication status: with hyperglycemia Qualified Code(s): E10.65 - Type 1 diabetes mellitus with hyperglycemia (4) Urinary retention Status: Acute Assessment and plan: He continues with 3 times daily self-catheterization. There has been no evidence of a urinary tract infection. Current Visit: No Hospitalist: Subjective Interval history: As noted previously, the patient has a previous history of diabetes mellitus, diabetic uropathy, and frequent urinary tract infection. He had been treating himself with 3 times daily self urinary catheterization due to urinary retention. He was hospitalized here after self discontinuation with resulting urinary retention. Urine cultures have not demonstrated evidence of a recurrent urinary tract infection. He is presently not receiving any antibiotics. He is being followed by gastroenterology for persistent low grade diarrhea, possible Crohn's disease and/or celiac sprue, and possible esophageal stricture. He is scheduled to undergo esophagogastroduodenoscopy tomorrow. When gastroenterology has completed their evaluation and plan treatment, the patient will be ready for discharge. Exam - Constitutional Vitals: Period Temp Pulse Resp BP Sys/Borges Pulse Ox Last 24 Hr 97.4 F-98.4 F 78-89 16-18 90-110/52-63 97-100 General appearance: no acute distress - Head Head exam: Present: normal inspection, normocephalic - Eye Eye exam: Present: EOMI Pupils: Present: MASOOD - Neck Neck exam: Present: normal inspection - Respiratory Respiratory exam: Present: clear to auscultation bilaterally - Cardiovascular Cardiovascular exam: Present: regular rate and rhythm - GI/Abdominal GI/Abdominal exam: Present: normal bowel sounds (Nontender with no palpable masses or hepatosplenomegaly.) - Extremities Exam Extremities exam: Present: normal inspection - Back Exam Back exam: Present: normal inspection - Neurological Exam Neurological exam: Present: alert, oriented X3 - Psychiatric Psychiatric exam: Present: normal affect, normal mood - Skin Skin exam: Present: normal color, warm, dry Results - Labs CBC & BMP: 09/06/16 05:44 09/06/16 05:44
[2016-09-06] MEDS: INSULIN REGULAR 100 UNIT/ML SUBCUT SCH ×3 (08:25→17:27)
[2016-09-06] MEDS: TAMSULOSIN 0.4 MG CAPSULE PO SCH (08:26)
[2016-09-06] MEDS: PANTOPRAZOLE 40 MG TABLET PO SCH (08:26)
[2016-09-06] MEDS: COLESEVELAM 625 MG TABLET PO SCH (08:26)
[2016-09-06] MEDS: SODIUM BICARBONATE 650 MG TABLET PO SCH ×2 (08:26→14:13)
[2016-09-06] MEDS ORDERED: DIPHENOXYLATE/ATROPINE 2.5-0.025 MG TABLET PO SCH (09:00)
[2016-09-06 15:24] VITALS: BP 95/53
--- NOTE | 2016-09-06 18:21 | Urology Consultation ---
Assessment and Plan - Time spent with patient Time spent with patient: Less than 30 minutes (1) Neurogenic bladder, flaccid Status: Acute Assessment and plan: Continue continue cathing 3 times a day as previously instructed. Continue follow-up follow-up appointments. Current Visit: Yes History of Present Illness - Data of Consult Patient: known to practice within the last 3 years Consult date: 09/06/16 - Consult Narrative Reason for consult: Neurogenic bladder History of present illness: Mr. Hamilton is a 30 year old male who I saw on past recent hospitalization with neurogenic bladder he is on intermittent self cath. Significant diabetic who was untreated for a year with high blood sugars. This is created a diabetic since topically. He also has some other sympathetic neurological issues which I think are all created from the uncontrolled diabetes of the ravaged him for a year or more. He recently had an appointment in my office and he no showed. I have little to offer at this point other than to continue the intermittent catheterization. I related to his so-called "girlfriend" that is up to him whether he does or not and it is up to him whether he keeps his appointments. I have no specific recommendations at this time other than the patient do what he needs to do. CC: Prashant Pamler - Home Medications and Allergies Home Medications: Home Medications Medication Instructions Recorded Confirmed Type Insulin Detemir [Levemir] 45 unit SUBCUT BEDTIME 04/25/15 09/04/16 History Fluconazole Tab [Diflucan Tab] 200 mg PO DAILY #7 tablet 08/03/16 09/04/16 Rx Tamsulosin [Flomax] 0.4 mg PO DAILY #30 capsule 08/03/16 09/04/16 Rx Colesevelam [Welchol] 625 mg PO BID 09/04/16 09/04/16 History Diphenoxylate/Atrop 2.5-0.025 2 tablet PO Q6H PRN 09/04/16 09/04/16 History [Lomotil Tab] Mupirocin [Mupirocin 2% Oint] 1 applic TOP TID 09/04/16 09/04/16 History Allergies/Adverse Reactions: Allergies Allergy/AdvReac Type Severity Reaction Status Date / Time sulfamethoxazole Allergy Verified 04/25/15 07:15 [From Bactrim] trimethoprim [From Bactrim] Allergy Verified 04/25/15 07:15 Exam - Constitutional Vitals: Period Temp Pulse Resp BP Sys/Borges Pulse Ox Last 24 Hr 97.4 F-98.3 F 78-93 16-19 95-110/52-70 97-100 Results - Labs CBC & BMP: 09/06/16 05:44 09/06/16 05:44
[2016-09-06] MEDS ORDERED: INSULIN GLARGINE 100 UNIT/ML SUBCUT SCH (21:00)
== END 2016-09-06 20:00 | disposition left against medical advice (07) | DRG 638 ==
LOC: N.5E 14:11 → SUATTDRO 14:11
PROVIDERS: ADMIT Internal Medicine

== ENCOUNTER 2017-11-17 15:05 | Inpatient (IN) ==
[2017-11-23 11:31] VITALS: BP 89/59
== END 2017-11-23 16:30 | disposition home health service (06) | DRG 853 ==
LOC: SUATTDRO 17:43 → N.ICU 17:43 → N.3E 11-19 21:15
PROVIDERS: ADMIT Internal Medicine; ATTEND Internal Medicine

== ENCOUNTER 2018-01-04 17:58 | Inpatient (IN) ==
[2018-01-04] MEDS ORDERED: LEVOFLOXACIN INJ 750 MG in PREMIX 1 EACH IV STA (18:25)
[2018-01-04] MEDS ORDERED: SODIUM CHLORIDE 0.9% 2,000 ML IV STA (18:25)
[2018-01-04] MEDS ORDERED: methylPREDNISolone SOD SUC 125 MG/2 ML VIAL IV STA (18:40)
[2018-01-04 18:46] LABS: Basophils % 0.2 % (0.0-0.8); Eosinophils # 0.1 10*3/uL (0.0-0.87); Eosinophils % 0.3 % (0.00-10.9); Hematocrit 25.2 VOL% (42.0-52.0); Hemoglobin 7.9 GM/DL (14.0-18.0); Immature Granulocytes % 1.4 %; Immature Granulocytes Absolute 0.26 #; Lymphocytes # 1.2 10*3/uL (1.4-4.0); Lymphocytes % 6.8 % (21.2-54.2); Mean Corpuscular HGB Conc 31.3 GM/DL (32-36); Mean Corpuscular Hemoglobin 28 PG (27-34); Mean Corpuscular Volume 90.3 FL (87-102); Mean Platelet Volume 8.6 FL (9.6-12.0); Monocytes # 0.7 10*3/uL (0.11-0.8); Monocytes % 4.1 % (1.7-12.7); NRBC # 0.07 10*3/uL; Neutrophils # 15.7 10*3/uL (1.4-7.4); Neutrophils % 87.2 % (38.7-73.9); Platelet Count 348 T/CUMM (130-400); Red Blood Count 2.79 MC/CUMM (3.8-5.5); Red Cell Distribution Width 16.1 % (9.3-17.3)
[2018-01-04 19:03] LABS: INR 0.9; Partial Thromboplastin Time 38.9 SECS (0-40)
[2018-01-04 19:07] LABS: Alanine Aminotransferase 12 U/L (16-61); Alkaline Phosphatase 197 U/L (45-117); Aspartate Amino Transferase < 3 U/L (0-37); Bilirubin,Total < 0.39 MG/DL (0.2-1.0); Blood Urea Nitrogen 50 MG/DL (7-18); Calcium 8.1 MG/DL (8.5-10.1); Glucose 146 MG/DL (74-106); Osmolality,Calculated 294.4 MOS/KG (273-304); Potassium 3.7 MMOL/L (3.5-5.1); Sodium 140 MMOL/L (136-145); Total Protein 7.2 G/DL (6.4-8.3); Troponin I < 0.015 NG/ML (0.00-0.045)
[2018-01-04 19:16] LABS: Ammonia 56 UMOL/L (11-32)
[2018-01-04 19:18] LABS: Lactic Acid 0.5 MMOL/L (0.4-2.0)
[2018-01-04] MEDS ORDERED: ALBUTEROL/IPRATROPIUM 3 ML NEB RESP TX STA (19:18)
[2018-01-04] MEDS ORDERED: ONDANSETRON 4 MG/2 ML VIAL IV PRN (20:05)
[2018-01-04] MEDS ORDERED: DEXTROSE 50% 25 GM/50 ML VIAL IV PRN (20:05)
[2018-01-04] MEDS ORDERED: ACETAMINOPHEN 325 MG TABLET PO PRN (20:05)
[2018-01-04] MEDS ORDERED: GLUCAGON 1 MG VIAL IM PRN (20:05)
[2018-01-04] MEDS ORDERED: DOCUSATE SODIUM 100 MG CAPSULE PO PRN (20:05)
[2018-01-04] MEDS ORDERED: SODIUM CHLORIDE 0.9% 1,000 ML IV SCH (20:30)
[2018-01-04] MEDS ORDERED: ALBUTEROL/IPRATROPIUM 3 ML NEB RESP TX PRN (20:50)
[2018-01-04] MEDS ORDERED: NOREPINEPHRINE 4 MG/4 ML VIAL IV ONE (21:44)
[2018-01-04] MEDS: NOREPINEPHRINE 8 MG in SODIUM CHLORIDE 0.9% 242 ML IV PRN (21:55)
[2018-01-05] MEDS: MIDODRINE 5 MG TABLET PO SCH ×4 (01:46→22:32)
[2018-01-05] MEDS: GABAPENTIN 100 MG CAPSULE PO SCH ×4 (01:46→22:32)
[2018-01-05] MEDS: SODIUM CHLOR 0.45% KCL 20 MEQ 20 MEQ/1,000 ML BAG IV SCH ×6 (01:46→22:31)
[2018-01-05] MEDS: SODIUM BICARBONATE 650 MG TABLET PO SCH ×4 (01:46→22:32)
[2018-01-05] MEDS: INSULIN LISPRO 100 UNIT/ML SUBCUT SCH ×9 (01:47→22:33)
[2018-01-05] MEDS: LIDOCAINE 5% PATCH TRANSDERM SCH ×3 (01:54→22:20)
[2018-01-05 04:52] LABS: Basophils # 0.1 10*3/uL (0.0-0.2); Basophils % 0.2 % (0.0-0.8); Hematocrit 28.9 VOL% (42.0-52.0); Immature Granulocytes % 3.4 %; Immature Granulocytes Absolute 0.77 #; Lymphocytes # 0.7 10*3/uL (1.4-4.0); Lymphocytes % 2.9 % (21.2-54.2); Mean Corpuscular HGB Conc 31.1 GM/DL (32-36); Mean Corpuscular Hemoglobin 28 PG (27-34); Mean Platelet Volume 8.8 FL (9.6-12.0); Monocytes # 0.1 10*3/uL (0.11-0.8); Monocytes % 0.4 % (1.7-12.7); Neutrophils # 21.1 10*3/uL (1.4-7.4); Neutrophils % 93.1 % (38.7-73.9); Platelet Count 387 T/CUMM (130-400); Red Blood Count 3.21 MC/CUMM (3.8-5.5); Red Cell Distribution Width 16.1 % (9.3-17.3); White Blood Count 22.6 T/CUMM (4-12)
[2018-01-05 05:14] LABS: Bilirubin,Total 0.4 MG/DL (0.2-1.0); Calcium 7.8 MG/DL (8.5-10.1); Osmolality,Calculated 296.5 MOS/KG (273-304); Potassium 3.9 MMOL/L (3.5-5.1); Total Protein 7.6 G/DL (6.4-8.3)
[2018-01-05 05:19] LABS: Band Neutrophils 2 % (0-10); Hypochromasia 1+; Lymphocytes 4 % (20-55); Ovalocytes Slight; Platelet Estimate Adequate; Segmented Neutrophils 94 % (50-85); Total Cells Counted 100
[2018-01-05 05:27] LABS: RBC,Urine 676 /HPF (0-4); Squamous Epithelial Cell,Urine Many /HPF (0-10); WBC,Urine 49958 /HPF (0-6)
[2018-01-05 05:28] LABS: Apearance,Urine Turbid (Clear); Bilirubin,Urine Negative (Negative); Glucose,Urine (UA) Negative (Negative); Ketones,Urine Negative (Negative); Nitrite,Urine Negative (Negative); Protein,Urine 100 MG/DL; Urine Color Yellow (Yellow); Urine Specific Gravity 1.015 (1.001-1.035)
[2018-01-05 05:29] LABS: Blood, Urine Trace mg/dL (Negative); Urine Urobilinogen 0.2 EU/DL (0.2-1.0)
[2018-01-05] MEDS ORDERED: LIPASE PO SCH (08:00)
[2018-01-05] MEDS ORDERED: AMYLASE PO SCH (08:00)
[2018-01-05] MEDS ORDERED: PROTEASE PO SCH (08:00)
[2018-01-05] MEDS ORDERED: PANTOPRAZOLE 40 MG TABLET PO SCH (09:00)
[2018-01-05] MEDS: ENOXAPARIN 30 MG/0.3 ML SYRINGE SUBCUT SCH (10:32)
[2018-01-05] MEDS: FOLIC ACID 1 MG TABLET PO SCH (10:34)
[2018-01-05] MEDS: ESCITALOPRAM 10 MG TABLET PO SCH (10:35)
[2018-01-05] MEDS: THIAMINE 100 MG TABLET PO SCH (10:35)
[2018-01-05] MEDS: HYDROCORTISONE 10 MG TABLET PO SCH ×2 (10:35→22:33)
[2018-01-05] MEDS: TAMSULOSIN 0.4 MG CAPSULE PO SCH (10:35)
[2018-01-05] MEDS: DESITIN 4OZ/NYSTATIN 15 GRAM MIXTURE PASTE TOP SCH ×2 (13:20→22:32)
[2018-01-05] MEDS: INSULIN GLARGINE 100 UNIT/ML SUBCUT SCH (22:32)
[2018-01-06] MEDS: LACTULOSE 20 GM/30 ML UDCUP PO SCH ×4 (00:45→17:02)
[2018-01-06 04:19] LABS: Basophils % 0.1 % (0.0-0.8); Hematocrit 25.9 VOL% (42.0-52.0); Hemoglobin 8.1 GM/DL (14.0-18.0); Immature Granulocytes % 8.2 %; Lymphocytes # 1.3 10*3/uL (1.4-4.0); Lymphocytes % 4.8 % (21.2-54.2); Mean Corpuscular HGB Conc 31.3 GM/DL (32-36); Mean Corpuscular Hemoglobin 28 PG (27-34); Mean Corpuscular Volume 88.1 FL (87-102); Mean Platelet Volume 8.6 FL (9.6-12.0); Monocytes % 3.9 % (1.7-12.7); Neutrophils # 22.1 10*3/uL (1.4-7.4); Platelet Count 374 T/CUMM (130-400); Red Blood Count 2.94 MC/CUMM (3.8-5.5); Red Cell Distribution Width 16.5 % (9.3-17.3); White Blood Count 26.7 T/CUMM (4-12)
[2018-01-06 04:49] LABS: Calcium 7.4 MG/DL (8.5-10.1); Potassium 5.6 MMOL/L (3.5-5.1)
[2018-01-06 05:02] LABS: Band Neutrophils 4 % (0-10); Burr Cells Slight; Hypochromasia 1+; Lymphocytes 3 % (20-55); Myelocytes 2 %; Nucleated Red Blood Cells 1 (0-5); Ovalocytes Slight; Platelet Estimate Adequate; Segmented Neutrophils 85 % (50-85); Total Cells Counted 100
[2018-01-06 05:17] LABS: Alanine Aminotransferase 10 U/L (16-61); Albumin 1.9 G/DL (3.4-5.0); Alkaline Phosphatase 178 U/L (45-117); Aspartate Amino Transferase 9 U/L (0-37); Bilirubin,Direct < 0.100 MG/DL (0.0-0.20); Bilirubin,Indirect 0.3 MG/DL (0.0-1.0); Blood Urea Nitrogen 50 MG/DL (7-18); Calcium 7.3 MG/DL (8.5-10.1); Glucose 166 MG/DL (74-106); Osmolality,Calculated 286.1 MOS/KG (273-304); Potassium 5.6 MMOL/L (3.5-5.1); Sodium 135 MMOL/L (136-145); Total Protein 6.7 G/DL (6.4-8.3)
[2018-01-06] MEDS: SODIUM CHLOR 0.45% KCL 20 MEQ 20 MEQ/1,000 ML BAG IV SCH ×2 (05:40→10:08)
[2018-01-06] MEDS: TAMSULOSIN 0.4 MG CAPSULE PO SCH (08:39)
[2018-01-06] MEDS: THIAMINE 100 MG TABLET PO SCH (08:39)
[2018-01-06] MEDS: HYDROCORTISONE 10 MG TABLET PO SCH ×2 (08:39→21:47)
[2018-01-06] MEDS: MIDODRINE 5 MG TABLET PO SCH ×3 (08:39→21:48)
[2018-01-06] MEDS: SODIUM BICARBONATE 650 MG TABLET PO SCH ×3 (08:39→21:48)
[2018-01-06] MEDS: ESCITALOPRAM 10 MG TABLET PO SCH (08:39)
[2018-01-06] MEDS: GABAPENTIN 100 MG CAPSULE PO SCH ×3 (08:39→21:48)
[2018-01-06] MEDS: FOLIC ACID 1 MG TABLET PO SCH (08:40)
[2018-01-06] MEDS: INSULIN LISPRO 100 UNIT/ML SUBCUT SCH ×7 (08:40→21:47)
[2018-01-06] MEDS: ENOXAPARIN 30 MG/0.3 ML SYRINGE SUBCUT SCH (08:40)
[2018-01-06] MEDS: DESITIN 4OZ/NYSTATIN 15 GRAM MIXTURE PASTE TOP SCH ×2 (08:41→21:48)
[2018-01-06] MEDS: LANSOPRAZOLE ODT 30 MG TABLET PER TUBE SCH (08:48)
[2018-01-06] MEDS: LIDOCAINE 5% PATCH TRANSDERM SCH ×2 (08:49→21:47)
[2018-01-06] MEDS ORDERED: SODIUM CHLORIDE 0.9% 1,000 ML IV SCH (10:00)
[2018-01-06] MEDS: NOREPINEPHRINE 8 MG in SODIUM CHLORIDE 0.9% 242 ML IV PRN (10:03)
[2018-01-06] MEDS ORDERED: SODIUM BICARBONATE 50 MEQ/50 ML SYRINGE IV ONE (16:19)
[2018-01-06] MEDS: MEROPENEM 1,000 MG in SODIUM CHLORIDE 0.9% 100 ML IV SCH (17:01)
[2018-01-06] MEDS: SODIUM CHLORIDE 23.4% CONC INJ 38.5 MEQ, SODIUM BICARB INJ 100 MEQ in STERILE WATER INJ... IV SCH ×2 (17:29→23:02)
[2018-01-06] MEDS ORDERED: LEVOFLOXACIN INJ 500 MG in PREMIX 1 EACH IV SCH (21:00)
[2018-01-06] MEDS: INSULIN GLARGINE 100 UNIT/ML SUBCUT SCH (21:47)
[2018-01-07] MEDS: LACTULOSE 20 GM/30 ML UDCUP PO SCH ×2 (01:39→06:28)
[2018-01-07] MEDS: SODIUM CHLORIDE 23.4% CONC INJ 38.5 MEQ, SODIUM BICARB INJ 100 MEQ in STERILE WATER INJ... IV SCH ×3 (06:00→17:33)
[2018-01-07 06:57] LABS: Basophils % 0.1 % (0.0-0.8); Eosinophils % 0.2 % (0.00-10.9); Hematocrit 24.3 VOL% (42.0-52.0); Hemoglobin 7.9 GM/DL (14.0-18.0); Immature Granulocytes % 11.1 %; Immature Granulocytes Absolute 1.92 #; Lymphocytes % 5.8 % (21.2-54.2); Mean Corpuscular HGB Conc 32.5 GM/DL (32-36); Mean Corpuscular Hemoglobin 28 PG (27-34); Mean Corpuscular Volume 86.2 FL (87-102); Mean Platelet Volume 8.5 FL (9.6-12.0); Monocytes # 0.9 10*3/uL (0.11-0.8); Monocytes % 4.9 % (1.7-12.7); NRBC # 0.27 10*3/uL; Neutrophils # 13.5 10*3/uL (1.4-7.4); Neutrophils % 77.9 % (38.7-73.9); Platelet Count 290 T/CUMM (130-400); Red Blood Count 2.82 MC/CUMM (3.8-5.5); Red Cell Distribution Width 16.5 % (9.3-17.3); White Blood Count 17.4 T/CUMM (4-12)
[2018-01-07 07:21] LABS: Albumin 1.7 G/DL (3.4-5.0); Calcium 7.1 MG/DL (8.5-10.1); Osmolality,Calculated 289.5 MOS/KG (273-304); Potassium 3.5 MMOL/L (3.5-5.1)
[2018-01-07] MEDS: HYDROCORTISONE 10 MG TABLET PO SCH ×2 (08:06→21:40)
[2018-01-07] MEDS: TAMSULOSIN 0.4 MG CAPSULE PO SCH (08:06)
[2018-01-07] MEDS: LANSOPRAZOLE ODT 30 MG TABLET PER TUBE SCH (08:06)
[2018-01-07] MEDS: SODIUM BICARBONATE 650 MG TABLET PO SCH ×3 (08:06→21:40)
[2018-01-07] MEDS: FOLIC ACID 1 MG TABLET PO SCH (08:06)
[2018-01-07] MEDS: ESCITALOPRAM 10 MG TABLET PO SCH (08:06)
[2018-01-07] MEDS: THIAMINE 100 MG TABLET PO SCH (08:06)
[2018-01-07] MEDS: MIDODRINE 5 MG TABLET PO SCH ×3 (08:06→21:40)
[2018-01-07] MEDS: DESITIN 4OZ/NYSTATIN 15 GRAM MIXTURE PASTE TOP SCH (08:06)
[2018-01-07] MEDS: ENOXAPARIN 30 MG/0.3 ML SYRINGE SUBCUT SCH (08:07)
[2018-01-07] MEDS: INSULIN LISPRO 100 UNIT/ML SUBCUT SCH ×5 (08:07→17:33)
[2018-01-07] MEDS: LIDOCAINE 5% PATCH TRANSDERM SCH (08:08)
[2018-01-07] MEDS: GABAPENTIN 100 MG CAPSULE PO SCH ×3 (08:13→21:40)
[2018-01-07] MEDS ORDERED: HYDROCORTISONE 100 MG VIAL IV ONE (09:04)
[2018-01-07] MEDS: NOREPINEPHRINE 8 MG in SODIUM CHLORIDE 0.9% 242 ML IV PRN (09:41)
[2018-01-07 11:05] LABS: Anisocytosis 1+; Band Neutrophils 1 % (0-10); Lymphocytes 9 % (20-55); Nucleated Red Blood Cells 3 (0-5); Segmented Neutrophils 87 % (50-85); Total Cells Counted 100
[2018-01-07 11:06] LABS: Hypochromasia Slight; Microcytosis 1+; Ovalocytes Slight; Platelet Estimate Normal; Poikilocytosis 1+; Polychromasia Slight
[2018-01-07] MEDS: MEROPENEM 1,000 MG in SODIUM CHLORIDE 0.9% 100 ML IV SCH (15:01)
[2018-01-07] MEDS: INSULIN GLARGINE 100 UNIT/ML SUBCUT SCH (21:40)
[2018-01-08] MEDS: SODIUM CHLORIDE 23.4% CONC INJ 38.5 MEQ, SODIUM BICARB INJ 100 MEQ in STERILE WATER INJ... IV SCH ×3 (00:50→06:33)
[2018-01-08] MEDS: LIDOCAINE 5% PATCH TRANSDERM SCH ×3 (01:31→23:03)
[2018-01-08] MEDS: INSULIN LISPRO 100 UNIT/ML SUBCUT SCH ×9 (01:33→23:04)
[2018-01-08] MEDS: DESITIN 4OZ/NYSTATIN 15 GRAM MIXTURE PASTE TOP SCH ×3 (01:34→23:05)
[2018-01-08 06:17] LABS: Alanine Aminotransferase 9 U/L (16-61); Albumin 1.5 G/DL (3.4-5.0); Alkaline Phosphatase 139 U/L (45-117); Aspartate Amino Transferase 12 U/L (0-37); Bilirubin,Total < 0.39 MG/DL (0.2-1.0); Blood Urea Nitrogen 45 MG/DL (7-18); Calcium 6.8 MG/DL (8.5-10.1); Glucose 73 MG/DL (74-106); Potassium 2.6 MMOL/L (3.5-5.1); Sodium 143 MMOL/L (136-145); Total Protein 5.1 G/DL (6.4-8.3)
[2018-01-08] MEDS: DEXTROSE 50% 25 GM/50 ML VIAL IV PRN (08:00)
[2018-01-08] MEDS ORDERED: SODIUM CHLORIDE 23.4% CONC INJ 38.5 MEQ, SODIUM BICARB INJ 50 MEQ in STERILE WATER INJ ... IV SCH (08:56)
[2018-01-08] MEDS: SODIUM BICARBONATE 650 MG TABLET PO SCH ×3 (10:12→21:30)
[2018-01-08] MEDS: ESCITALOPRAM 10 MG TABLET PO SCH (10:13)
[2018-01-08] MEDS: MIDODRINE 5 MG TABLET PO SCH ×3 (10:13→21:30)
[2018-01-08] MEDS: FOLIC ACID 1 MG TABLET PO SCH (10:13)
[2018-01-08] MEDS: THIAMINE 100 MG TABLET PO SCH (10:14)
[2018-01-08] MEDS: TAMSULOSIN 0.4 MG CAPSULE PO SCH (10:14)
[2018-01-08] MEDS: HYDROCORTISONE 10 MG TABLET PO SCH ×2 (10:15→21:30)
[2018-01-08] MEDS: LANSOPRAZOLE ODT 30 MG TABLET PER TUBE SCH (10:16)
[2018-01-08] MEDS: GABAPENTIN 100 MG CAPSULE PO SCH ×3 (10:16→21:30)
[2018-01-08] MEDS: ENOXAPARIN 30 MG/0.3 ML SYRINGE SUBCUT SCH (10:17)
[2018-01-08] MEDS: SODIUM CHLORIDE 0.9% 1,000 ML IV SCH ×2 (10:57→19:00)
[2018-01-08] MEDS ORDERED: SODIUM CHLORIDE 23.4% CONC INJ 38.5 MEQ, SODIUM BICARB INJ 50 MEQ, POTASSIUM CHLORIDE I... IV SCH (11:00)
[2018-01-08] MEDS: ALBUMIN 25% 12.5 GM in PREMIX 1 EACH IV SCH ×2 (11:04→17:07)
[2018-01-08] MEDS: POTASSIUM BICARB EFFERVESCENT 25 MEQ TABLET PO SCH ×2 (12:07→21:30)
[2018-01-08] MEDS: MEROPENEM 1,000 MG in SODIUM CHLORIDE 0.9% 100 ML IV SCH (15:04)
[2018-01-08] MEDS: INSULIN GLARGINE 100 UNIT/ML SUBCUT SCH (23:05)
[2018-01-09] MEDS: SODIUM CHLORIDE 0.9% 1,000 ML IV SCH ×3 (03:20→19:50)
[2018-01-09] MEDS: ALBUMIN 25% 12.5 GM in PREMIX 1 EACH IV SCH (03:20)
[2018-01-09 06:44] LABS: Calcium 6.6 MG/DL (8.5-10.1); Osmolality,Calculated 300.4 MOS/KG (273-304); Potassium 2.6 MMOL/L (3.5-5.1)
[2018-01-09] MEDS: LIDOCAINE 5% PATCH TRANSDERM SCH ×2 (08:53→21:08)
[2018-01-09] MEDS: INSULIN LISPRO 100 UNIT/ML SUBCUT SCH ×7 (08:53→21:09)
[2018-01-09] MEDS: HYDROCORTISONE 10 MG TABLET PO SCH ×3 (09:50→22:52)
[2018-01-09] MEDS: FOLIC ACID 1 MG TABLET PO SCH (10:05)
[2018-01-09] MEDS: TAMSULOSIN 0.4 MG CAPSULE PO SCH (10:05)
[2018-01-09] MEDS: THIAMINE 100 MG TABLET PO SCH (10:06)
[2018-01-09] MEDS: ENOXAPARIN 30 MG/0.3 ML SYRINGE SUBCUT SCH (10:06)
[2018-01-09] MEDS: ESCITALOPRAM 10 MG TABLET PO SCH (10:06)
[2018-01-09] MEDS: MIDODRINE 5 MG TABLET PO SCH ×3 (10:06→22:51)
[2018-01-09] MEDS: POTASSIUM CHLORIDE RIDER 20 MEQ in PREMIX 1 EACH IV SCH ×2 (10:07→12:20)
[2018-01-09] MEDS: GABAPENTIN 100 MG CAPSULE PO SCH ×3 (10:07→22:51)
[2018-01-09] MEDS: DESITIN 4OZ/NYSTATIN 15 GRAM MIXTURE PASTE TOP SCH ×2 (10:07→21:09)
[2018-01-09] MEDS: SODIUM BICARBONATE 650 MG TABLET PO SCH ×3 (10:07→22:51)
[2018-01-09] MEDS: LANSOPRAZOLE ODT 30 MG TABLET PER TUBE SCH (10:07)
[2018-01-09] MEDS: POTASSIUM BICARB EFFERVESCENT 25 MEQ TABLET PO SCH ×3 (11:02→22:50)
[2018-01-09] MEDS: MEROPENEM 500 MG in SODIUM CHLORIDE 0.9% 100 ML IV SCH (15:29)
[2018-01-09] MEDS: INSULIN GLARGINE 100 UNIT/ML SUBCUT SCH (20:17)
[2018-01-09] MEDS: DEXTROSE 50% 25 GM/50 ML VIAL IV PRN (20:24)
[2018-01-09] MEDS: NOREPINEPHRINE 8 MG in SODIUM CHLORIDE 0.9% 242 ML IV PRN (23:00)
[2018-01-10] MEDS: MEROPENEM 500 MG in SODIUM CHLORIDE 0.9% 100 ML IV SCH ×2 (02:29→12:34)
[2018-01-10] MEDS: SODIUM CHLORIDE 0.9% 1,000 ML IV SCH ×5 (04:10→20:45)
[2018-01-10 04:41] LABS: Basophils % 0.2 % (0.0-0.8); Eosinophils # 0.1 10*3/uL (0.0-0.87); Eosinophils % 1.2 % (0.00-10.9); Hematocrit 23.1 VOL% (42.0-52.0); Hemoglobin 7.5 GM/DL (14.0-18.0); Immature Granulocytes % 1.8 %; Immature Granulocytes Absolute 0.17 #; Lymphocytes # 1.1 10*3/uL (1.4-4.0); Lymphocytes % 12.2 % (21.2-54.2); Mean Corpuscular HGB Conc 32.5 GM/DL (32-36); Mean Corpuscular Hemoglobin 27 PG (27-34); Mean Platelet Volume 8.8 FL (9.6-12.0); Monocytes # 0.9 10*3/uL (0.11-0.8); Monocytes % 9.2 % (1.7-12.7); Neutrophils % 75.4 % (38.7-73.9); Platelet Count 282 T/CUMM (130-400); Red Blood Count 2.75 MC/CUMM (3.8-5.5); Red Cell Distribution Width 17.2 % (9.3-17.3); White Blood Count 9.3 T/CUMM (4-12)
[2018-01-10 05:07] LABS: Calcium 7.5 MG/DL (8.5-10.1); Osmolality,Calculated 301.3 MOS/KG (273-304); Potassium 3.3 MMOL/L (3.5-5.1)
[2018-01-10] MEDS: INSULIN LISPRO 100 UNIT/ML SUBCUT SCH ×7 (07:57→20:44)
[2018-01-10] MEDS: POTASSIUM BICARB EFFERVESCENT 25 MEQ TABLET PO SCH ×3 (08:08→20:44)
[2018-01-10] MEDS: SODIUM BICARBONATE 650 MG TABLET PO SCH ×3 (08:09→20:44)
[2018-01-10] MEDS: ESCITALOPRAM 10 MG TABLET PO SCH (08:09)
[2018-01-10] MEDS: GABAPENTIN 100 MG CAPSULE PO SCH ×3 (08:09→20:44)
[2018-01-10] MEDS: MIDODRINE 5 MG TABLET PO SCH ×3 (08:09→20:44)
[2018-01-10] MEDS: THIAMINE 100 MG TABLET PO SCH (08:09)
[2018-01-10] MEDS: TAMSULOSIN 0.4 MG CAPSULE PO SCH (08:10)
[2018-01-10] MEDS: LANSOPRAZOLE ODT 30 MG TABLET PER TUBE SCH (08:10)
[2018-01-10] MEDS: HYDROCORTISONE 10 MG TABLET PO SCH ×2 (08:10→20:43)
[2018-01-10] MEDS: FOLIC ACID 1 MG TABLET PO SCH (08:10)
[2018-01-10] MEDS: ENOXAPARIN 30 MG/0.3 ML SYRINGE SUBCUT SCH (08:10)
[2018-01-10] MEDS: DESITIN 4OZ/NYSTATIN 15 GRAM MIXTURE PASTE TOP SCH ×2 (08:11→20:44)
[2018-01-10] MEDS ORDERED: MAGNESIUM SULF RIDER 4 GM in PREMIX 1 EACH IV ONE (08:21)
[2018-01-10] MEDS: LIDOCAINE 5% PATCH TRANSDERM SCH ×2 (09:30→20:43)
[2018-01-10 13:06] LABS: Tissue Transglutaminase IgA Ab 1.4 U/mL; Tissue Transglutaminase IgG Ab 2.8 U/mL
[2018-01-10 14:55] LABS: Endomysial Antibodies IgA Negative (Negative)
[2018-01-10] MEDS ORDERED: diphenhydrAMINE 50 MG/1 ML VIAL IV ONE (15:42)
[2018-01-10] MEDS: INSULIN GLARGINE 100 UNIT/ML SUBCUT SCH (20:44)
[2018-01-10] MEDS: traZODone 50 MG TABLET PO PRN (20:45)
[2018-01-11] MEDS: MEROPENEM 500 MG in SODIUM CHLORIDE 0.9% 100 ML IV SCH ×2 (01:03→13:14)
[2018-01-11] MEDS: SODIUM CHLORIDE 0.9% 1,000 ML IV SCH ×3 (01:04→17:46)
[2018-01-11 04:28] LABS: Calcium 7.8 MG/DL (8.5-10.1); Osmolality,Calculated 296.6 MOS/KG (273-304); Potassium 3.8 MMOL/L (3.5-5.1)
[2018-01-11] MEDS: INSULIN LISPRO 100 UNIT/ML SUBCUT SCH ×7 (07:18→22:15)
[2018-01-11] MEDS ORDERED: SODIUM CHLORIDE 0.9% 1,000 ML IV PRN (07:35)
[2018-01-11] MEDS: FOLIC ACID 1 MG TABLET PO SCH (08:20)
[2018-01-11] MEDS: SODIUM BICARBONATE 650 MG TABLET PO SCH ×3 (08:20→20:14)
[2018-01-11] MEDS: MIDODRINE 5 MG TABLET PO SCH ×3 (08:20→20:14)
[2018-01-11] MEDS: MULTIVITAMIN (PRENATAL) TABLET PO SCH ×2 (08:22→20:13)
[2018-01-11] MEDS: ESCITALOPRAM 10 MG TABLET PO SCH (08:22)
[2018-01-11] MEDS: LANSOPRAZOLE ODT 30 MG TABLET PER TUBE SCH (08:22)
[2018-01-11] MEDS: THIAMINE 100 MG TABLET PO SCH (08:22)
[2018-01-11] MEDS: TAMSULOSIN 0.4 MG CAPSULE PO SCH (08:22)
[2018-01-11] MEDS: GABAPENTIN 100 MG CAPSULE PO SCH ×3 (08:22→20:16)
[2018-01-11] MEDS: CALCIUM (CARBONATE)/VITAMIN D 600 MG-400 UNIT TABLET PO SCH ×2 (08:22→20:13)
[2018-01-11] MEDS: HYDROCORTISONE 10 MG TABLET PO SCH ×2 (08:22→20:13)
[2018-01-11] MEDS: POTASSIUM BICARB EFFERVESCENT 25 MEQ TABLET PO SCH ×3 (08:22→20:13)
[2018-01-11] MEDS: ENOXAPARIN 30 MG/0.3 ML SYRINGE SUBCUT SCH (08:23)
[2018-01-11] MEDS: LIDOCAINE 5% PATCH TRANSDERM SCH ×2 (08:27→20:16)
[2018-01-11] MEDS: DESITIN 4OZ/NYSTATIN 15 GRAM MIXTURE PASTE TOP SCH ×2 (08:46→20:14)
[2018-01-11] MEDS: FLUDROCORTISONE 0.1 MG TABLET PO SCH (12:00)
[2018-01-11] MEDS ORDERED: POLYETHYLENE GLYCOL POWDER 255 GM BOTTLE PO ONE (18:00)
[2018-01-11 18:10] LABS: Hematocrit 30.7 VOL% (42.0-52.0)
[2018-01-11] MEDS: traZODone 50 MG TABLET PO PRN (20:14)
[2018-01-11] MEDS ORDERED: MAGNESIUM CITRATE 300 ML BOTTLE PO ONE (21:00)
[2018-01-11] MEDS: INSULIN GLARGINE 100 UNIT/ML SUBCUT SCH (22:15)
[2018-01-12] MEDS: SODIUM CHLORIDE 0.9% 1,000 ML IV SCH (01:06)
[2018-01-12] MEDS: MEROPENEM 500 MG in SODIUM CHLORIDE 0.9% 100 ML IV SCH ×2 (01:06→15:32)
[2018-01-12 04:34] LABS: Basophils % 0.1 % (0.0-0.8); Eosinophils # 0.1 10*3/uL (0.0-0.87); Eosinophils % 1.1 % (0.00-10.9); Hematocrit 29.9 VOL% (42.0-52.0); Hemoglobin 9.4 GM/DL (14.0-18.0); Immature Granulocytes % 0.9 %; Immature Granulocytes Absolute 0.08 #; Lymphocytes # 0.9 10*3/uL (1.4-4.0); Mean Corpuscular HGB Conc 31.4 GM/DL (32-36); Mean Corpuscular Hemoglobin 28 PG (27-34); Mean Corpuscular Volume 87.9 FL (87-102); Mean Platelet Volume 8.6 FL (9.6-12.0); Monocytes # 0.7 10*3/uL (0.11-0.8); Monocytes % 7.4 % (1.7-12.7); Neutrophils % 80.5 % (38.7-73.9); Platelet Count 223 T/CUMM (130-400); Red Cell Distribution Width 16.1 % (9.3-17.3); White Blood Count 8.7 T/CUMM (4-12)
[2018-01-12 04:57] LABS: Calcium 7.8 MG/DL (8.5-10.1); Potassium 3.4 MMOL/L (3.5-5.1)
[2018-01-12] MEDS: DEXTROSE 50% 25 GM/50 ML VIAL IV PRN (05:05)
[2018-01-12] MEDS ORDERED: LIDOCAINE 2% 5 ML VIAL ONE (07:16)
[2018-01-12] MEDS ORDERED: ETOMIDATE 20 MG/10 ML VIAL IV ONE (07:16)
[2018-01-12] MEDS ORDERED: diphenhydrAMINE 50 MG/1 ML VIAL IV ONE (08:00)
[2018-01-12] MEDS: INSULIN LISPRO 100 UNIT/ML SUBCUT SCH ×6 (08:22→21:04)
[2018-01-12] MEDS: LIDOCAINE 5% PATCH TRANSDERM SCH ×2 (08:22→21:34)
[2018-01-12] MEDS: POTASSIUM BICARB EFFERVESCENT 25 MEQ TABLET PO SCH ×3 (08:49→21:34)
[2018-01-12] MEDS: COLESTIPOL 1 GM TABLET PO SCH ×2 (08:50→21:01)
[2018-01-12] MEDS: FLUDROCORTISONE 0.1 MG TABLET PO SCH (08:50)
[2018-01-12] MEDS: DIPHENOXYLATE/ATROPINE 2.5-0.025 MG TABLET PO SCH ×4 (08:50→22:42)
[2018-01-12] MEDS: SODIUM BICARBONATE 650 MG TABLET PO SCH ×3 (08:50→21:02)
[2018-01-12] MEDS: MULTIVITAMIN (PRENATAL) TABLET PO SCH ×2 (08:50→21:03)
[2018-01-12] MEDS: HYDROCORTISONE 10 MG TABLET PO SCH ×2 (08:51→21:02)
[2018-01-12] MEDS: LANSOPRAZOLE ODT 30 MG TABLET PER TUBE SCH (08:51)
[2018-01-12] MEDS: CALCIUM (CARBONATE)/VITAMIN D 600 MG-400 UNIT TABLET PO SCH ×2 (08:51→21:03)
[2018-01-12] MEDS: MIDODRINE 5 MG TABLET PO SCH ×3 (08:51→21:02)
[2018-01-12] MEDS: ESCITALOPRAM 10 MG TABLET PO SCH (08:51)
[2018-01-12] MEDS: FOLIC ACID 1 MG TABLET PO SCH (08:53)
[2018-01-12] MEDS: TAMSULOSIN 0.4 MG CAPSULE PO SCH (08:55)
[2018-01-12] MEDS: THIAMINE 100 MG TABLET PO SCH (08:59)
[2018-01-12] MEDS: GABAPENTIN 100 MG CAPSULE PO SCH ×3 (08:59→21:03)
[2018-01-12] MEDS: ENOXAPARIN 30 MG/0.3 ML SYRINGE SUBCUT SCH (09:01)
[2018-01-12] MEDS: DESITIN 4OZ/NYSTATIN 15 GRAM MIXTURE PASTE TOP SCH ×2 (09:04→21:39)
[2018-01-12] MEDS: SODIUM CHLOR 0.45% KCL 20 MEQ 20 MEQ/1,000 ML BAG IV SCH ×2 (09:09→17:17)
[2018-01-12] MEDS ORDERED: DEXTROSE 10% 1,000 ML IV PRN (17:00)
[2018-01-12] MEDS ORDERED: TRACE ELEMENTS (5) 1 ML, MULTIVITAMIN INJ 10 ML in AMINO ACIDS/DEXT/LYTES 5-15% 2,000 ML IV SCH (17:00)
[2018-01-12] MEDS: FAT EMULSION 20% 250 ML IV SCH (17:15)
[2018-01-12] MEDS: INSULIN GLARGINE 100 UNIT/ML SUBCUT SCH (21:03)
[2018-01-13] MEDS: INSULIN LISPRO 100 UNIT/ML SUBCUT SCH ×7 (01:10→20:43)
[2018-01-13] MEDS: SODIUM CHLOR 0.45% KCL 20 MEQ 20 MEQ/1,000 ML BAG IV SCH ×2 (01:37→09:40)
[2018-01-13] MEDS: MEROPENEM 500 MG in SODIUM CHLORIDE 0.9% 100 ML IV SCH ×2 (01:53→13:28)
[2018-01-13 05:41] LABS: Basophils % 0.2 % (0.0-0.8); Eosinophils # 0.1 10*3/uL (0.0-0.87); Eosinophils % 0.8 % (0.00-10.9); Hematocrit 29.3 VOL% (42.0-52.0); Hemoglobin 9.3 GM/DL (14.0-18.0); Immature Granulocytes % 1.7 %; Immature Granulocytes Absolute 0.19 #; Lymphocytes % 9.2 % (21.2-54.2); Mean Corpuscular HGB Conc 31.7 GM/DL (32-36); Mean Corpuscular Hemoglobin 28 PG (27-34); Mean Corpuscular Volume 88.8 FL (87-102); Monocytes # 0.6 10*3/uL (0.11-0.8); Monocytes % 5.5 % (1.7-12.7); Neutrophils # 9.2 10*3/uL (1.4-7.4); Neutrophils % 82.6 % (38.7-73.9); Platelet Count 217 T/CUMM (130-400); Red Cell Distribution Width 16.2 % (9.3-17.3); White Blood Count 11.2 T/CUMM (4-12)
[2018-01-13 06:03] LABS: Calcium 7.5 MG/DL (8.5-10.1); Osmolality,Calculated 290.1 MOS/KG (273-304); Potassium 4.3 MMOL/L (3.5-5.1)
[2018-01-13 06:06] LABS: Prealbumin 13.2 MG/DL (20-40)
[2018-01-13] MEDS: FLUDROCORTISONE 0.1 MG TABLET PO SCH (08:39)
[2018-01-13] MEDS: GABAPENTIN 100 MG CAPSULE PO SCH ×3 (08:39→20:32)
[2018-01-13] MEDS: SODIUM BICARBONATE 650 MG TABLET PO SCH ×3 (08:40→20:32)
[2018-01-13] MEDS: ESCITALOPRAM 10 MG TABLET PO SCH (08:40)
[2018-01-13] MEDS: HYDROCORTISONE 10 MG TABLET PO SCH ×2 (08:40→20:34)
[2018-01-13] MEDS: MIDODRINE 5 MG TABLET PO SCH ×3 (08:40→20:33)
[2018-01-13] MEDS: TAMSULOSIN 0.4 MG CAPSULE PO SCH (08:40)
[2018-01-13] MEDS: THIAMINE 100 MG TABLET PO SCH (08:41)
[2018-01-13] MEDS: LANSOPRAZOLE ODT 30 MG TABLET PER TUBE SCH (08:41)
[2018-01-13] MEDS: FOLIC ACID 1 MG TABLET PO SCH (08:41)
[2018-01-13] MEDS: COLESTIPOL 1 GM TABLET PO SCH ×2 (08:45→20:32)
[2018-01-13] MEDS: CALCIUM (CARBONATE)/VITAMIN D 600 MG-400 UNIT TABLET PO SCH ×2 (08:46→20:33)
[2018-01-13] MEDS: DIPHENOXYLATE/ATROPINE 2.5-0.025 MG TABLET PO SCH ×4 (08:46→20:33)
[2018-01-13] MEDS: MULTIVITAMIN (PRENATAL) TABLET PO SCH ×2 (08:46→20:33)
[2018-01-13] MEDS: POTASSIUM BICARB EFFERVESCENT 25 MEQ TABLET PO SCH ×3 (08:47→20:33)
[2018-01-13] MEDS: LIDOCAINE 5% PATCH TRANSDERM SCH ×2 (08:52→20:34)
[2018-01-13] MEDS: DESITIN 4OZ/NYSTATIN 15 GRAM MIXTURE PASTE TOP SCH ×2 (08:52→20:34)
[2018-01-13] MEDS: NOREPINEPHRINE 8 MG in SODIUM CHLORIDE 0.9% 242 ML IV PRN (11:10)
[2018-01-13] MEDS: SODIUM CHLORIDE 23.4% CONC INJ 38.5 MEQ, SODIUM BICARB INJ 50 MEQ in STERILE WATER INJ ... IV SCH (13:28)
[2018-01-13] MEDS: FAT EMULSION 20% 250 ML IV SCH (15:35)
[2018-01-13] MEDS ORDERED: [UNRECOGNIZED DRUG - OTHER] IV SCH (17:00)
[2018-01-13] MEDS ORDERED: MULTIVITAMIN PEDIATRIC IV SCH (17:00)
[2018-01-13] MEDS ORDERED: TRACE ELEMENTS IV SCH (17:00)
[2018-01-13] MEDS: INSULIN GLARGINE 100 UNIT/ML SUBCUT SCH (20:31)
[2018-01-13] MEDS: traZODone 50 MG TABLET PO PRN (23:37)
[2018-01-14] MEDS: INSULIN LISPRO 100 UNIT/ML SUBCUT SCH ×7 (00:11→20:02)
[2018-01-14] MEDS: MEROPENEM 500 MG in SODIUM CHLORIDE 0.9% 100 ML IV SCH ×2 (01:41→12:40)
[2018-01-14] MEDS: SODIUM CHLORIDE 23.4% CONC INJ 38.5 MEQ, SODIUM BICARB INJ 50 MEQ in STERILE WATER INJ ... IV SCH ×2 (01:42→12:30)
[2018-01-14 04:43] LABS: Basophils % 0.1 % (0.0-0.8); Eosinophils # 0.1 10*3/uL (0.0-0.87); Eosinophils % 1.2 % (0.00-10.9); Hematocrit 28.8 VOL% (42.0-52.0); Hemoglobin 9.3 GM/DL (14.0-18.0); Immature Granulocytes % 1.5 %; Immature Granulocytes Absolute 0.16 #; Lymphocytes # 1.3 10*3/uL (1.4-4.0); Lymphocytes % 11.9 % (21.2-54.2); Mean Corpuscular HGB Conc 32.3 GM/DL (32-36); Mean Corpuscular Hemoglobin 28 PG (27-34); Mean Corpuscular Volume 86.5 FL (87-102); Mean Platelet Volume 8.7 FL (9.6-12.0); Monocytes # 0.8 10*3/uL (0.11-0.8); Monocytes % 7.7 % (1.7-12.7); Neutrophils # 8.1 10*3/uL (1.4-7.4); Neutrophils % 77.6 % (38.7-73.9); Platelet Count 217 T/CUMM (130-400); Red Blood Count 3.33 MC/CUMM (3.8-5.5); Red Cell Distribution Width 16.2 % (9.3-17.3); White Blood Count 10.5 T/CUMM (4-12)
[2018-01-14 05:07] LABS: Calcium 7.7 MG/DL (8.5-10.1); Potassium 4.4 MMOL/L (3.5-5.1)
[2018-01-14] MEDS ORDERED: MAGNESIUM SULF RIDER 4 GM in PREMIX 1 EACH IV ONE (09:04)
[2018-01-14] MEDS: COLESTIPOL 1 GM TABLET PO SCH ×2 (10:17→20:00)
[2018-01-14] MEDS: DIPHENOXYLATE/ATROPINE 2.5-0.025 MG TABLET PO SCH ×4 (10:17→20:01)
[2018-01-14] MEDS: LANSOPRAZOLE ODT 30 MG TABLET PER TUBE SCH (10:18)
[2018-01-14] MEDS: CALCIUM (CARBONATE)/VITAMIN D 600 MG-400 UNIT TABLET PO SCH ×2 (10:18→20:00)
[2018-01-14] MEDS: ESCITALOPRAM 10 MG TABLET PO SCH (10:18)
[2018-01-14] MEDS: SODIUM BICARBONATE 650 MG TABLET PO SCH ×3 (10:18→20:01)
[2018-01-14] MEDS: FLUDROCORTISONE 0.1 MG TABLET PO SCH (10:18)
[2018-01-14] MEDS: FOLIC ACID 1 MG TABLET PO SCH (10:18)
[2018-01-14] MEDS: THIAMINE 100 MG TABLET PO SCH (10:19)
[2018-01-14] MEDS: MIDODRINE 5 MG TABLET PO SCH ×3 (10:19→20:00)
[2018-01-14] MEDS: MULTIVITAMIN (PRENATAL) TABLET PO SCH ×2 (10:19→20:01)
[2018-01-14] MEDS: GABAPENTIN 100 MG CAPSULE PO SCH ×3 (10:19→20:01)
[2018-01-14] MEDS: HYDROCORTISONE 10 MG TABLET PO SCH ×2 (10:19→20:01)
[2018-01-14] MEDS: LIDOCAINE 5% PATCH TRANSDERM SCH ×2 (10:20→20:00)
[2018-01-14] MEDS: TAMSULOSIN 0.4 MG CAPSULE PO SCH (10:20)
[2018-01-14] MEDS: DESITIN 4OZ/NYSTATIN 15 GRAM MIXTURE PASTE TOP SCH ×2 (10:21→20:02)
[2018-01-14] MEDS: POTASSIUM BICARB EFFERVESCENT 25 MEQ TABLET PO SCH ×2 (10:41→20:00)
[2018-01-14] MEDS: FAT EMULSION 20% 250 ML IV SCH (16:15)
[2018-01-14] MEDS: TRACE ELEMENTS (5) 1 ML, MULTIVITAMIN INJ 10 ML in AMINO ACIDS/DEXT/LYTES 5-15% 2,000 ML IV SCH (16:31)
[2018-01-14] MEDS ORDERED: POTASSIUM BICARB EFFERVESCENT 25 MEQ TABLET PO ONE (19:59)
[2018-01-14] MEDS: INSULIN GLARGINE 100 UNIT/ML SUBCUT SCH (20:01)
[2018-01-14] MEDS: traZODone 50 MG TABLET PO PRN (20:51)
[2018-01-15] MEDS: INSULIN LISPRO 100 UNIT/ML SUBCUT SCH ×7 (00:13→20:06)
[2018-01-15] MEDS: MEROPENEM 500 MG in SODIUM CHLORIDE 0.9% 100 ML IV SCH ×2 (00:30→12:30)
[2018-01-15 04:29] LABS: Basophils % 0.2 % (0.0-0.8); Eosinophils # 0.2 10*3/uL (0.0-0.87); Eosinophils % 1.9 % (0.00-10.9); Hematocrit 27.1 VOL% (42.0-52.0); Hemoglobin 8.7 GM/DL (14.0-18.0); Immature Granulocytes % 2.8 %; Immature Granulocytes Absolute 0.24 #; Lymphocytes # 1.4 10*3/uL (1.4-4.0); Lymphocytes % 16.7 % (21.2-54.2); Mean Corpuscular HGB Conc 32.1 GM/DL (32-36); Mean Corpuscular Hemoglobin 28 PG (27-34); Mean Corpuscular Volume 88.3 FL (87-102); Mean Platelet Volume 9.1 FL (9.6-12.0); Monocytes # 0.8 10*3/uL (0.11-0.8); Monocytes % 9.3 % (1.7-12.7); Neutrophils # 5.9 10*3/uL (1.4-7.4); Neutrophils % 69.1 % (38.7-73.9); Platelet Count 203 T/CUMM (130-400); Red Blood Count 3.07 MC/CUMM (3.8-5.5); Red Cell Distribution Width 15.9 % (9.3-17.3); White Blood Count 8.5 T/CUMM (4-12)
[2018-01-15 04:59] LABS: Calcium 7.2 MG/DL (8.5-10.1); Osmolality,Calculated 292.4 MOS/KG (273-304); Potassium 4.3 MMOL/L (3.5-5.1)
[2018-01-15] MEDS: SODIUM CHLORIDE 23.4% CONC INJ 38.5 MEQ, SODIUM BICARB INJ 50 MEQ in STERILE WATER INJ ... IV SCH ×2 (05:38→15:51)
[2018-01-15] MEDS: LIDOCAINE 5% PATCH TRANSDERM SCH ×2 (08:17→20:07)
[2018-01-15] MEDS: SODIUM BICARBONATE 650 MG TABLET PO SCH ×3 (08:18→20:04)
[2018-01-15] MEDS: MULTIVITAMIN (PRENATAL) TABLET PO SCH ×2 (08:19→20:05)
[2018-01-15] MEDS: CALCIUM (CARBONATE)/VITAMIN D 600 MG-400 UNIT TABLET PO SCH ×2 (08:19→20:12)
[2018-01-15] MEDS: MIDODRINE 5 MG TABLET PO SCH ×3 (08:19→20:06)
[2018-01-15] MEDS: GABAPENTIN 100 MG CAPSULE PO SCH ×3 (08:20→20:06)
[2018-01-15] MEDS: THIAMINE 100 MG TABLET PO SCH (08:20)
[2018-01-15] MEDS: FLUDROCORTISONE 0.1 MG TABLET PO SCH (08:20)
[2018-01-15] MEDS: LOPERAMIDE 2 MG CAPSULE PO PRN (08:20)
[2018-01-15] MEDS: DIPHENOXYLATE/ATROPINE 2.5-0.025 MG TABLET PO SCH ×4 (08:21→20:06)
[2018-01-15] MEDS: TAMSULOSIN 0.4 MG CAPSULE PO SCH (08:21)
[2018-01-15] MEDS: LANSOPRAZOLE ODT 30 MG TABLET PER TUBE SCH (08:21)
[2018-01-15] MEDS: FOLIC ACID 1 MG TABLET PO SCH (08:22)
[2018-01-15] MEDS: ESCITALOPRAM 10 MG TABLET PO SCH (08:22)
[2018-01-15] MEDS: POTASSIUM BICARB EFFERVESCENT 25 MEQ TABLET PO SCH ×2 (08:22→20:06)
[2018-01-15] MEDS: HYDROCORTISONE 10 MG TABLET PO SCH ×2 (08:23→20:06)
[2018-01-15] MEDS: COLESTIPOL 1 GM TABLET PO SCH ×2 (08:25→20:04)
[2018-01-15] MEDS: DESITIN 4OZ/NYSTATIN 15 GRAM MIXTURE PASTE TOP SCH ×2 (08:27→20:07)
[2018-01-15] MEDS ORDERED: NOREPINEPHRINE 4 MG/4 ML VIAL IV ONE (09:14)
[2018-01-15] MEDS: NOREPINEPHRINE 8 MG in SODIUM CHLORIDE 0.9% 242 ML IV PRN (09:28)
[2018-01-15] MEDS: FAT EMULSION 20% 250 ML IV SCH (15:52)
[2018-01-15] MEDS: TRACE ELEMENTS (5) 1 ML, MULTIVITAMIN INJ 10 ML in AMINO ACIDS/DEXT/LYTES 5-15% 2,000 ML IV SCH (16:22)
[2018-01-15] MEDS: INSULIN GLARGINE 100 UNIT/ML SUBCUT SCH (20:06)
[2018-01-16] MEDS: INSULIN LISPRO 100 UNIT/ML SUBCUT SCH ×8 (00:48→22:03)
[2018-01-16] MEDS: MEROPENEM 500 MG in SODIUM CHLORIDE 0.9% 100 ML IV SCH ×2 (00:48→13:34)
[2018-01-16] MEDS: traZODone 50 MG TABLET PO PRN (00:58)
[2018-01-16] MEDS: SODIUM CHLORIDE 23.4% CONC INJ 38.5 MEQ, SODIUM BICARB INJ 50 MEQ in STERILE WATER INJ ... IV SCH (04:42)
[2018-01-16 05:36] LABS: Calcium 7.5 MG/DL (8.5-10.1); Osmolality,Calculated 304.8 MOS/KG (273-304)
[2018-01-16] MEDS ORDERED: GLUCAGON 1 MG VIAL IM PRN (08:28)
[2018-01-16] MEDS ORDERED: DEXTROSE 50% 25 GM/50 ML VIAL IV PRN (08:28)
[2018-01-16] MEDS: LIDOCAINE 5% PATCH TRANSDERM SCH ×2 (08:43→22:03)
[2018-01-16] MEDS: POTASSIUM BICARB EFFERVESCENT 25 MEQ TABLET PO SCH ×2 (08:49→22:04)
[2018-01-16] MEDS: ESCITALOPRAM 10 MG TABLET PO SCH (08:50)
[2018-01-16] MEDS: MULTIVITAMIN (PRENATAL) TABLET PO SCH ×2 (08:50→22:04)
[2018-01-16] MEDS: MIDODRINE 5 MG TABLET PO SCH ×3 (08:50→22:04)
[2018-01-16] MEDS: COLESTIPOL 1 GM TABLET PO SCH ×2 (08:50→22:03)
[2018-01-16] MEDS: HYDROCORTISONE 10 MG TABLET PO SCH ×2 (08:50→22:03)
[2018-01-16] MEDS: CALCIUM (CARBONATE)/VITAMIN D 600 MG-400 UNIT TABLET PO SCH ×2 (08:50→22:03)
[2018-01-16] MEDS: TAMSULOSIN 0.4 MG CAPSULE PO SCH (08:50)
[2018-01-16] MEDS: LANSOPRAZOLE ODT 30 MG TABLET PER TUBE SCH (08:51)
[2018-01-16] MEDS: FOLIC ACID 1 MG TABLET PO SCH (08:51)
[2018-01-16] MEDS: LOPERAMIDE 2 MG CAPSULE PO PRN ×3 (08:51→17:06)
[2018-01-16] MEDS: THIAMINE 100 MG TABLET PO SCH (08:51)
[2018-01-16] MEDS: SODIUM BICARBONATE 650 MG TABLET PO SCH ×3 (08:51→22:05)
[2018-01-16] MEDS: FLUDROCORTISONE 0.1 MG TABLET PO SCH (08:51)
[2018-01-16] MEDS: GABAPENTIN 100 MG CAPSULE PO SCH ×3 (08:51→22:04)
[2018-01-16] MEDS: DIPHENOXYLATE/ATROPINE 2.5-0.025 MG TABLET PO SCH ×4 (08:54→22:04)
[2018-01-16] MEDS: DESITIN 4OZ/NYSTATIN 15 GRAM MIXTURE PASTE TOP SCH ×2 (08:57→22:05)
[2018-01-16 10:31] LABS: Apearance,Urine CLOUDY (Clear); Bilirubin,Urine Negative (Negative); Blood, Urine Small mg/dL (Negative); Glucose,Urine (UA) >=500 mg/dL (Negative); Ketones,Urine Negative (Negative); Nitrite,Urine Negative (Negative); Protein,Urine 100 MG/DL; RBC,Urine 250 /HPF (0-4); Urine Color Yellow (Yellow); Urine Specific Gravity 1.008 (1.001-1.035); Urine Urobilinogen < 2.0 EU/DL (0.2-1.0); WBC,Urine 593 /HPF (0-6)
[2018-01-16] MEDS: FAT EMULSION 20% 250 ML IV SCH (14:21)
[2018-01-16] MEDS: TRACE ELEMENTS (5) 1 ML, MULTIVITAMIN INJ 10 ML in AMINO ACIDS/DEXT/LYTES 5-15% 2,000 ML IV SCH (17:08)
[2018-01-16] MEDS: INSULIN GLARGINE 100 UNIT/ML SUBCUT SCH (22:04)
[2018-01-17] MEDS: MEROPENEM 500 MG in SODIUM CHLORIDE 0.9% 100 ML IV SCH ×2 (01:43→14:59)
[2018-01-17 06:15] LABS: Basophils % 0.2 % (0.0-0.8); Eosinophils # 0.1 10*3/uL (0.0-0.87); Eosinophils % 0.8 % (0.00-10.9); Hematocrit 25.9 VOL% (42.0-52.0); Hemoglobin 8.1 GM/DL (14.0-18.0); Immature Granulocytes % 2.3 %; Immature Granulocytes Absolute 0.33 #; Lymphocytes # 0.9 10*3/uL (1.4-4.0); Lymphocytes % 6.4 % (21.2-54.2); Mean Corpuscular HGB Conc 31.3 GM/DL (32-36); Mean Corpuscular Hemoglobin 28 PG (27-34); Mean Corpuscular Volume 90.6 FL (87-102); Mean Platelet Volume 9.7 FL (9.6-12.0); Neutrophils # 12.2 10*3/uL (1.4-7.4); Neutrophils % 83.3 % (38.7-73.9); Platelet Count 206 T/CUMM (130-400); Red Blood Count 2.86 MC/CUMM (3.8-5.5); Red Cell Distribution Width 15.9 % (9.3-17.3); White Blood Count 14.6 T/CUMM (4-12)
[2018-01-17 06:46] LABS: Prealbumin 24.2 MG/DL (20-40)
[2018-01-17 07:37] LABS: Albumin 1.5 G/DL (3.4-5.0); Bilirubin,Total 0.4 MG/DL (0.2-1.0); Calcium 7.8 MG/DL (8.5-10.1); Osmolality,Calculated 311.4 MOS/KG (273-304); Potassium 5.8 MMOL/L (3.5-5.1); Total Protein 5.5 G/DL (6.4-8.3)
[2018-01-17] MEDS: LIDOCAINE 5% PATCH TRANSDERM SCH ×2 (07:56→20:29)
[2018-01-17] MEDS: INSULIN LISPRO 100 UNIT/ML SUBCUT SCH ×7 (07:59→20:29)
[2018-01-17] MEDS: POTASSIUM BICARB EFFERVESCENT 25 MEQ TABLET PO SCH ×2 (08:00→20:30)
[2018-01-17] MEDS: MIDODRINE 5 MG TABLET PO SCH ×3 (08:07→20:28)
[2018-01-17] MEDS: COLESTIPOL 1 GM TABLET PO SCH ×2 (08:07→20:28)
[2018-01-17] MEDS: SODIUM BICARBONATE 650 MG TABLET PO SCH ×3 (08:07→20:28)
[2018-01-17] MEDS: DIPHENOXYLATE/ATROPINE 2.5-0.025 MG TABLET PO SCH ×4 (08:08→20:33)
[2018-01-17] MEDS: CALCIUM (CARBONATE)/VITAMIN D 600 MG-400 UNIT TABLET PO SCH ×2 (08:08→20:28)
[2018-01-17] MEDS: MULTIVITAMIN (PRENATAL) TABLET PO SCH ×2 (08:08→20:28)
[2018-01-17] MEDS: ESCITALOPRAM 10 MG TABLET PO SCH (08:08)
[2018-01-17] MEDS: FLUDROCORTISONE 0.1 MG TABLET PO SCH (08:08)
[2018-01-17] MEDS: HYDROCORTISONE 10 MG TABLET PO SCH ×2 (08:09→20:34)
[2018-01-17] MEDS: LOPERAMIDE 2 MG CAPSULE PO PRN (08:10)
[2018-01-17] MEDS: TAMSULOSIN 0.4 MG CAPSULE PO SCH (08:11)
[2018-01-17] MEDS: GABAPENTIN 100 MG CAPSULE PO SCH ×3 (08:11→20:28)
[2018-01-17] MEDS: LANSOPRAZOLE ODT 30 MG TABLET PER TUBE SCH (08:12)
[2018-01-17] MEDS: FOLIC ACID 1 MG TABLET PO SCH (08:12)
[2018-01-17] MEDS: THIAMINE 100 MG TABLET PO SCH (08:12)
[2018-01-17] MEDS: DESITIN 4OZ/NYSTATIN 15 GRAM MIXTURE PASTE TOP SCH ×2 (08:16→20:30)
[2018-01-17] MEDS: FAT EMULSION 20% 250 ML IV SCH (15:19)
[2018-01-17] MEDS: TRACE ELEMENTS (5) 1 ML, MULTIVITAMIN INJ 10 ML in AMINO ACIDS/DEXT/LYTES 5-15% 2,000 ML IV SCH (16:19)
[2018-01-17] MEDS ORDERED: MEROPENEM 500 MG in SODIUM CHLORIDE 0.9% 100 ML IV ONE (17:00)
[2018-01-17] MEDS: traZODone 50 MG TABLET PO PRN (20:28)
[2018-01-17] MEDS: INSULIN GLARGINE 100 UNIT/ML SUBCUT SCH (20:29)
[2018-01-18] MEDS: MEROPENEM 1,000 MG in SODIUM CHLORIDE 0.9% 100 ML IV SCH ×2 (03:09→15:55)
[2018-01-18 06:16] LABS: Calcium 7.8 MG/DL (8.5-10.1); Osmolality,Calculated 312.7 MOS/KG (273-304)
[2018-01-18 06:18] LABS: Potassium 6.4 MMOL/L (3.5-5.1)
[2018-01-18] MEDS: POTASSIUM BICARB EFFERVESCENT 25 MEQ TABLET PO SCH (08:03)
[2018-01-18] MEDS: INSULIN LISPRO 100 UNIT/ML SUBCUT SCH ×7 (08:25→20:30)
[2018-01-18] MEDS ORDERED: SODIUM BICARBONATE 50 MEQ/50 ML SYRINGE IV ONE (08:31)
[2018-01-18] MEDS ORDERED: SODIUM POLYSTYRENE SULFATE 15 GM/60 ML BOTTLE PO ONE (08:32)
[2018-01-18] MEDS: LIDOCAINE 5% PATCH TRANSDERM SCH ×2 (08:51→20:38)
[2018-01-18] MEDS: COLESTIPOL 1 GM TABLET PO SCH (08:52)
[2018-01-18] MEDS: HYDROCORTISONE 10 MG TABLET PO SCH ×2 (08:52→20:26)
[2018-01-18] MEDS: LOPERAMIDE 2 MG CAPSULE PO PRN (08:53)
[2018-01-18] MEDS: FLUDROCORTISONE 0.1 MG TABLET PO SCH (08:53)
[2018-01-18] MEDS: ESCITALOPRAM 10 MG TABLET PO SCH (08:53)
[2018-01-18] MEDS: FOLIC ACID 1 MG TABLET PO SCH (08:53)
[2018-01-18] MEDS: MULTIVITAMIN (PRENATAL) TABLET PO SCH ×2 (08:53→20:25)
[2018-01-18] MEDS: SODIUM BICARBONATE 650 MG TABLET PO SCH ×3 (08:53→20:25)
[2018-01-18] MEDS: CALCIUM (CARBONATE)/VITAMIN D 600 MG-400 UNIT TABLET PO SCH ×2 (08:53→20:26)
[2018-01-18] MEDS: LANSOPRAZOLE ODT 30 MG TABLET PER TUBE SCH (08:53)
[2018-01-18] MEDS: DIPHENOXYLATE/ATROPINE 2.5-0.025 MG TABLET PO SCH ×4 (08:53→20:26)
[2018-01-18] MEDS: GABAPENTIN 100 MG CAPSULE PO SCH ×3 (08:53→20:27)
[2018-01-18] MEDS: THIAMINE 100 MG TABLET PO SCH (08:53)
[2018-01-18] MEDS: DESITIN 4OZ/NYSTATIN 15 GRAM MIXTURE PASTE TOP SCH ×2 (08:54→22:18)
[2018-01-18] MEDS: TAMSULOSIN 0.4 MG CAPSULE PO SCH (08:54)
[2018-01-18] MEDS: MIDODRINE 5 MG TABLET PO SCH ×3 (09:19→20:26)
[2018-01-18] MEDS: FAT EMULSION 20% 250 ML IV SCH (13:42)
[2018-01-18 15:01] LABS: Collection duration of stool Random h; Total Weight of Stool 29 g
[2018-01-18] MEDS: FLUCONAZOLE 100 MG TABLET PO SCH (17:14)
[2018-01-18] MEDS: TRACE ELEMENTS IV SCH (17:14)
[2018-01-18] MEDS: [UNRECOGNIZED DRUG - OTHER] IV SCH (17:14)
[2018-01-18] MEDS: ELECTROLYTE IV SCH (17:14)
[2018-01-18] MEDS: MULTIVITAMIN IV SCH (17:14)
[2018-01-18] MEDS: INSULIN GLARGINE 100 UNIT/ML SUBCUT SCH (20:30)
[2018-01-19] MEDS: MEROPENEM 1,000 MG in SODIUM CHLORIDE 0.9% 100 ML IV SCH ×2 (03:29→15:43)
[2018-01-19 05:19] LABS: Basophils % 0.3 % (0.0-0.8); Eosinophils # 0.2 10*3/uL (0.0-0.87); Eosinophils % 1.2 % (0.00-10.9); Hematocrit 23.8 VOL% (42.0-52.0); Hemoglobin 7.3 GM/DL (14.0-18.0); Immature Granulocytes % 3.6 %; Immature Granulocytes Absolute 0.52 #; Lymphocytes # 0.9 10*3/uL (1.4-4.0); Lymphocytes % 6.3 % (21.2-54.2); Mean Corpuscular HGB Conc 30.7 GM/DL (32-36); Mean Corpuscular Hemoglobin 28 PG (27-34); Mean Corpuscular Volume 92.6 FL (87-102); Mean Platelet Volume 9.8 FL (9.6-12.0); Monocytes # 0.9 10*3/uL (0.11-0.8); Monocytes % 5.9 % (1.7-12.7); Neutrophils % 82.7 % (38.7-73.9); Platelet Count 221 T/CUMM (130-400); Red Blood Count 2.57 MC/CUMM (3.8-5.5); Red Cell Distribution Width 15.7 % (9.3-17.3); White Blood Count 14.5 T/CUMM (4-12)
[2018-01-19 05:33] LABS: Calcium 7.8 MG/DL (8.5-10.1); Osmolality,Calculated 306.1 MOS/KG (273-304); Potassium 5.3 MMOL/L (3.5-5.1); Prealbumin 25.6 MG/DL (20-40)
[2018-01-19 05:47] LABS: Microcytosis 1+
[2018-01-19 05:48] LABS: Acanthocytes Few; Burr Cells Slight; Hypochromasia 1+
[2018-01-19 05:52] LABS: Osmolality,Calculated 305.3 MOS/KG (273-304); Potassium 5.3 MMOL/L (3.5-5.1)
[2018-01-19] MEDS ORDERED: SODIUM CHLORIDE 0.9% 1,000 ML IV PRN (07:09)
[2018-01-19] MEDS: INSULIN LISPRO 100 UNIT/ML SUBCUT SCH ×7 (07:45→21:10)
[2018-01-19] MEDS: BUDESONIDE 3 MG CAPSULE PO SCH (08:42)
[2018-01-19] MEDS: FLUDROCORTISONE 0.1 MG TABLET PO SCH (08:42)
[2018-01-19] MEDS: HYDROCORTISONE 10 MG TABLET PO SCH ×2 (08:42→21:09)
[2018-01-19] MEDS: ESCITALOPRAM 10 MG TABLET PO SCH (08:43)
[2018-01-19] MEDS: TAMSULOSIN 0.4 MG CAPSULE PO SCH (08:43)
[2018-01-19] MEDS: MIDODRINE 5 MG TABLET PO SCH ×3 (08:43→21:08)
[2018-01-19] MEDS: CALCIUM (CARBONATE)/VITAMIN D 600 MG-400 UNIT TABLET PO SCH ×2 (08:43→21:08)
[2018-01-19] MEDS: SODIUM BICARBONATE 650 MG TABLET PO SCH ×3 (08:43→21:08)
[2018-01-19] MEDS: THIAMINE 100 MG TABLET PO SCH (08:44)
[2018-01-19] MEDS: FLUCONAZOLE 100 MG TABLET PO SCH (08:44)
[2018-01-19] MEDS: GABAPENTIN 100 MG CAPSULE PO SCH ×3 (08:44→21:09)
[2018-01-19] MEDS: LANSOPRAZOLE ODT 30 MG TABLET PER TUBE SCH (08:44)
[2018-01-19] MEDS: MULTIVITAMIN (PRENATAL) TABLET PO SCH ×2 (08:44→21:08)
[2018-01-19] MEDS: FOLIC ACID 1 MG TABLET PO SCH (08:44)
[2018-01-19] MEDS: DIPHENOXYLATE/ATROPINE 2.5-0.025 MG TABLET PO SCH ×4 (08:44→21:09)
[2018-01-19] MEDS: DESITIN 4OZ/NYSTATIN 15 GRAM MIXTURE PASTE TOP SCH ×2 (08:52→21:16)
[2018-01-19] MEDS: LIDOCAINE 5% PATCH TRANSDERM SCH ×3 (08:52→21:07)
[2018-01-19] MEDS: MULTIVITAMIN IV SCH (14:08)
[2018-01-19] MEDS: TRACE ELEMENTS IV SCH (14:08)
[2018-01-19] MEDS: ELECTROLYTE IV SCH (14:08)
[2018-01-19] MEDS: [UNRECOGNIZED DRUG - OTHER] IV SCH (14:08)
[2018-01-19 16:42] LABS: Hematocrit 30.1 VOL% (42.0-52.0); Hemoglobin 9.5 GM/DL (14.0-18.0)
[2018-01-19] MEDS: INSULIN GLARGINE 100 UNIT/ML SUBCUT SCH (21:09)
[2018-01-20 02:01] LABS: Calcium 7.8 MG/DL (8.5-10.1); Osmolality,Calculated 306.1 MOS/KG (273-304); Potassium 5.2 MMOL/L (3.5-5.1)
[2018-01-20] MEDS: INSULIN LISPRO 100 UNIT/ML SUBCUT SCH ×4 (07:33→12:34)
[2018-01-20] MEDS: LIDOCAINE 5% PATCH TRANSDERM SCH (08:06)
[2018-01-20] MEDS: DIPHENOXYLATE/ATROPINE 2.5-0.025 MG TABLET PO SCH (08:07)
[2018-01-20] MEDS: MULTIVITAMIN (PRENATAL) TABLET PO SCH (08:07)
[2018-01-20] MEDS: MIDODRINE 5 MG TABLET PO SCH (08:07)
[2018-01-20] MEDS: SODIUM BICARBONATE 650 MG TABLET PO SCH (08:07)
[2018-01-20] MEDS: BUDESONIDE 3 MG CAPSULE PO SCH (08:07)
[2018-01-20] MEDS: TAMSULOSIN 0.4 MG CAPSULE PO SCH (08:08)
[2018-01-20] MEDS: CALCIUM (CARBONATE)/VITAMIN D 600 MG-400 UNIT TABLET PO SCH (08:08)
[2018-01-20] MEDS: LANSOPRAZOLE ODT 30 MG TABLET PER TUBE SCH (08:08)
[2018-01-20] MEDS: ESCITALOPRAM 10 MG TABLET PO SCH (08:08)
[2018-01-20] MEDS: THIAMINE 100 MG TABLET PO SCH (08:08)
[2018-01-20] MEDS: GABAPENTIN 100 MG CAPSULE PO SCH (08:18)
[2018-01-20] MEDS: FLUDROCORTISONE 0.1 MG TABLET PO SCH (08:18)
[2018-01-20] MEDS: FOLIC ACID 1 MG TABLET PO SCH (08:18)
[2018-01-20] MEDS: FLUCONAZOLE 100 MG TABLET PO SCH (08:19)
[2018-01-20] MEDS: HYDROCORTISONE 10 MG TABLET PO SCH (08:19)
[2018-01-20] MEDS: DESITIN 4OZ/NYSTATIN 15 GRAM MIXTURE PASTE TOP SCH (08:20)
[2018-01-20 11:52] VITALS: BP 125/74
== END 2018-01-20 13:00 | disposition home or self-care (01) | DRG 871 ==
LOC: EDBD → EDUNIT# → N.ED 17:58 → SUATTDRO 20:05 → N.EDINP 20:05 → N.CC 22:12 → N.2E 01-19 17:41
PROVIDERS: ADMIT Hospitalist; ATTEND Internal Medicine
PROC: COLONBX (2018-01-12 07:35)

== ENCOUNTER 2018-12-23 12:53 | Inpatient (IN) ==
[2018-12-23] MEDS ORDERED: ACETAMINOPHEN 325 MG TABLET PO PRN (16:25)
[2018-12-23] MEDS ORDERED: MORPHINE 4 MG/1 ML VIAL IV PRN (16:25)
[2018-12-23] MEDS ORDERED: GLUCAGON 1 MG VIAL IM PRN (16:25)
[2018-12-23] MEDS ORDERED: DEXTROSE 50% 25 GM/50 ML VIAL IV PRN (16:25)
[2018-12-23] MEDS ORDERED: LOPERAMIDE 2 MG CAPSULE PO PRN (16:29)
[2018-12-23] MEDS ORDERED: MAGNESIUM SULF RIDER 4 GM in PREMIX 1 EACH IV PRN (16:30)
[2018-12-23] MEDS ORDERED: ERGOCALCIFEROL 50,000 UNIT CAPSULE PO SCH (16:30)
[2018-12-23] MEDS ORDERED: MAGNESIUM SULF RIDER 2 GM in PREMIX 1 EACH IV PRN (16:30)
[2018-12-23] MEDS: SEVELAMER CARBONATE 800 MG TABLET PO SCH (16:53)
[2018-12-23] MEDS: AZITHROMYCIN 250 MG TABLET PO SCH (16:53)
[2018-12-23] MEDS: cefTRIAXone 1,000 MG in SYRINGE 1 EACH IV SCH (16:58)
[2018-12-23] MEDS: HEPARIN 5,000 UNIT/1 ML VIAL SUBCUT SCH (16:59)
[2018-12-23] MEDS: INSULIN REGULAR 100 UNIT/ML SUBCUT SCH ×2 (17:05→22:09)
[2018-12-23] MEDS: COLESEVELAM 625 MG TABLET PO SCH (17:06)
[2018-12-23 17:31] LABS: Apearance,Urine CLOUDY (Clear); Bilirubin,Urine Negative (Negative); Blood, Urine Small mg/dL (Negative); Glucose,Urine (UA) 150 mg/dL (Negative); Ketones,Urine Negative (Negative); Nitrite,Urine Negative (Negative); Protein,Urine 100 MG/DL; Urine Color Yellow (Yellow); Urine Specific Gravity 1.013 (1.001-1.035); Urine Urobilinogen < 2.0 EU/DL (0.2-1.0); WBC,Urine 2170 /HPF (0-6)
[2018-12-23 17:39] LABS: Basophils % 0.1 % (0.0-0.8); Immature Granulocytes % 0.7 %; Immature Granulocytes Absolute 0.11 #; Lymphocytes # 0.4 10*3/uL (1.4-4.0); Lymphocytes % 2.4 % (21.2-54.2); Mean Corpuscular HGB Conc 29.2 GM/DL (32-36); Mean Corpuscular Volume 93.8 FL (87-102); Mean Platelet Volume 10.3 FL (9.6-12.0); Monocytes % 2.3 % (1.7-12.7); Neutrophils % 94.5 % (38.7-73.9); Platelet Count 263 T/CUMM (130-400); Red Blood Count 2.89 MC/CUMM (3.8-5.5); Red Cell Distribution Width 18.4 % (9.3-17.3); White Blood Count 16.9 T/CUMM (4-12)
[2018-12-23 17:40] LABS: Alanine Aminotransferase 17 U/L (16-61); Albumin 2.5 G/DL (3.4-5.0); Alkaline Phosphatase 166 U/L (45-117); Aspartate Amino Transferase 13 U/L (0-37); Bilirubin,Total < 0.39 MG/DL (0.2-1.0); Blood Urea Nitrogen 43 MG/DL (7-18); Calcium 8.1 MG/DL (8.5-10.1); Glucose 300 MG/DL (74-106); Hematocrit 27.1 VOL% (42.0-52.0); Hemoglobin 7.9 GM/DL (14.0-18.0); Total Protein 7.5 G/DL (6.4-8.3)
[2018-12-23 17:55] LABS: Anisocytosis 2+; Band Neutrophils 8 % (0-10); Lymphocytes 1 % (20-55); Macrocytosis 2+; Microcytosis 1+; Polychromasia Slight; Segmented Neutrophils 91 % (50-85); Total Cells Counted 100
[2018-12-23 17:56] LABS: Burr Cells Slight; Platelet Estimate Normal
[2018-12-23] MEDS ORDERED: INSULIN GLARGINE 100 UNIT/ML SUBCUT SCH ×2 (19:00→21:00)
[2018-12-23] MEDS ORDERED: INSULIN LISPRO 100 UNIT/ML SUBCUT SCH (21:00)
[2018-12-23] MEDS ORDERED: ASCORBIC ACID 500 MG TABLET PO SCH (21:00)
[2018-12-23] MEDS: DOCUSATE SODIUM 100 MG CAPSULE PO SCH (22:09)
[2018-12-23] MEDS: MIDODRINE 5 MG TABLET PO SCH (22:10)
[2018-12-23] MEDS: ASCORBIC ACID 500 MG TABLET PO SCH (22:11)
[2018-12-23] MEDS: SODIUM BICARBONATE 650 MG TABLET PO SCH (22:11)
[2018-12-23] MEDS: DIPHENOXYLATE/ATROPINE 2.5-0.025 MG TABLET PO SCH (22:12)
[2018-12-23] MEDS: LOPERAMIDE 2 MG CAPSULE PO SCH (22:12)
[2018-12-23] MEDS: HYDROCORTISONE 10 MG TABLET PO SCH (22:13)
[2018-12-24] MEDS: HEPARIN 5,000 UNIT/1 ML VIAL SUBCUT SCH ×3 (01:31→16:02)
[2018-12-24 04:24] LABS: ABG Base Excess -8.6 MMOL/L (-2.5-2.5); ABG Oxygen Saturation 98.1 % (95-100); ABG PCO2 41.8 MM HG (35-48); ABG PH 7.252 (7.35-7.45); ABG PO2 136.9 MM HG (80-95); ABG TCO2 19.3 MMOL/L (23-27); Allen Test Positive
[2018-12-24 05:40] LABS: Basophils % 0.2 % (0.0-0.8); Hematocrit 27.1 VOL% (42.0-52.0); Hemoglobin 8.1 GM/DL (14.0-18.0); Immature Granulocytes % 0.7 %; Immature Granulocytes Absolute 0.16 #; Lymphocytes # 0.9 10*3/uL (1.4-4.0); Mean Corpuscular HGB Conc 29.9 GM/DL (32-36); Mean Corpuscular Volume 92.5 FL (87-102); Mean Platelet Volume 10.8 FL (9.6-12.0); Neutrophils % 93.1 % (38.7-73.9); Platelet Count 279 T/CUMM (130-400); Red Blood Count 2.93 MC/CUMM (3.8-5.5); White Blood Count 21.4 T/CUMM (4-12)
[2018-12-24 06:04] LABS: Band Neutrophils 5 % (0-10); Lymphocytes 3 % (20-55); Segmented Neutrophils 90 % (50-85); Total Cells Counted 100
[2018-12-24 06:05] LABS: Hypochromasia 1+; Microcytosis 1+
[2018-12-24 06:06] LABS: Platelet Estimate Normal
[2018-12-24 06:19] LABS: Albumin 2.2 G/DL (3.4-5.0); Bilirubin,Total 0.5 MG/DL (0.2-1.0); Calcium 8.3 MG/DL (8.5-10.1); Osmolality,Calculated 295.1 MOS/KG (273-304); Risk Ratio 1.72; Thyroid Stimulating Hormone 0.23 uIU/ml (0.358-3.74); Total Protein 7.3 G/DL (6.4-8.3); VLDL CHOLESTEROL 8.8 MG/DL
[2018-12-24] MEDS: INSULIN REGULAR 100 UNIT/ML SUBCUT SCH ×4 (08:04→21:26)
[2018-12-24] MEDS: HYDROCORTISONE 10 MG TABLET PO SCH ×2 (08:05→21:20)
[2018-12-24] MEDS: ESCITALOPRAM 10 MG TABLET PO SCH (08:05)
[2018-12-24] MEDS: INSULIN LISPRO 100 UNIT/ML SUBCUT SCH ×3 (08:05→16:00)
[2018-12-24] MEDS: DIPHENOXYLATE/ATROPINE 2.5-0.025 MG TABLET PO SCH ×2 (08:05→21:19)
[2018-12-24] MEDS: LOPERAMIDE 2 MG CAPSULE PO SCH ×2 (08:05→21:19)
[2018-12-24] MEDS: SEVELAMER CARBONATE 800 MG TABLET PO SCH ×3 (08:05→16:01)
[2018-12-24] MEDS: AZITHROMYCIN 250 MG TABLET PO SCH (08:05)
[2018-12-24] MEDS: MIDODRINE 5 MG TABLET PO SCH ×3 (08:06→21:20)
[2018-12-24] MEDS: PANTOPRAZOLE 40 MG TABLET PO SCH (08:06)
[2018-12-24] MEDS: SODIUM BICARBONATE 650 MG TABLET PO SCH ×3 (08:06→21:19)
[2018-12-24] MEDS: FOLIC ACID 1 MG TABLET PO SCH (08:06)
[2018-12-24] MEDS: FAMOTIDINE 20 MG TABLET PO SCH (08:06)
[2018-12-24] MEDS: THIAMINE 100 MG TABLET PO SCH (08:06)
[2018-12-24] MEDS: ASCORBIC ACID 500 MG TABLET PO SCH ×2 (08:06→21:19)
[2018-12-24] MEDS: DOCUSATE SODIUM 100 MG CAPSULE PO SCH ×2 (08:10→21:18)
[2018-12-24] MEDS: COLESEVELAM 625 MG TABLET PO SCH ×2 (08:10→16:00)
[2018-12-24] MEDS ORDERED: ALBUTEROL/IPRATROPIUM 3 ML NEB RESP TX PRN (11:41)
[2018-12-24] MEDS: cefTRIAXone 1,000 MG in SYRINGE 1 EACH IV SCH (16:01)
[2018-12-25] MEDS: HEPARIN 5,000 UNIT/1 ML VIAL SUBCUT SCH ×3 (02:32→16:50)
[2018-12-25 08:26] LABS: Basophils % 0.1 % (0.0-0.8); Eosinophils # 0.1 10*3/uL (0.0-0.87); Eosinophils % 0.3 % (0.00-10.9); Hematocrit 28.9 VOL% (42.0-52.0); Hemoglobin 8.5 GM/DL (14.0-18.0); Immature Granulocytes % 0.6 %; Lymphocytes # 1.5 10*3/uL (1.4-4.0); Lymphocytes % 9.4 % (21.2-54.2); Mean Corpuscular HGB Conc 29.4 GM/DL (32-36); Mean Corpuscular Volume 92.6 FL (87-102); Mean Platelet Volume 10.6 FL (9.6-12.0); Neutrophils % 83.6 % (38.7-73.9); Platelet Count 309 T/CUMM (130-400); Red Blood Count 3.12 MC/CUMM (3.8-5.5); Red Cell Distribution Width 18.2 % (9.3-17.3); White Blood Count 16.2 T/CUMM (4-12)
[2018-12-25] MEDS: INSULIN LISPRO 100 UNIT/ML SUBCUT SCH ×3 (08:45→16:50)
[2018-12-25] MEDS: INSULIN REGULAR 100 UNIT/ML SUBCUT SCH ×4 (08:45→20:40)
[2018-12-25] MEDS: MIDODRINE 5 MG TABLET PO SCH ×3 (08:47→20:42)
[2018-12-25] MEDS: PANTOPRAZOLE 40 MG TABLET PO SCH (08:47)
[2018-12-25] MEDS: SEVELAMER CARBONATE 800 MG TABLET PO SCH ×3 (08:47→16:50)
[2018-12-25] MEDS: DIPHENOXYLATE/ATROPINE 2.5-0.025 MG TABLET PO SCH ×2 (08:47→20:42)
[2018-12-25] MEDS: COLESEVELAM 625 MG TABLET PO SCH ×2 (08:47→16:50)
[2018-12-25] MEDS: LOPERAMIDE 2 MG CAPSULE PO SCH ×2 (08:47→20:41)
[2018-12-25] MEDS: SODIUM BICARBONATE 650 MG TABLET PO SCH ×3 (08:48→20:41)
[2018-12-25] MEDS: AZITHROMYCIN 250 MG TABLET PO SCH (08:48)
[2018-12-25] MEDS: ESCITALOPRAM 10 MG TABLET PO SCH (08:48)
[2018-12-25] MEDS: FOLIC ACID 1 MG TABLET PO SCH (08:48)
[2018-12-25] MEDS: FAMOTIDINE 20 MG TABLET PO SCH (08:48)
[2018-12-25] MEDS: THIAMINE 100 MG TABLET PO SCH (08:48)
[2018-12-25] MEDS: HYDROCORTISONE 10 MG TABLET PO SCH ×2 (08:48→20:41)
[2018-12-25] MEDS: ASCORBIC ACID 500 MG TABLET PO SCH ×2 (08:48→20:41)
[2018-12-25 08:57] LABS: Albumin 2.3 G/DL (3.4-5.0); Bilirubin,Total 0.8 MG/DL (0.2-1.0); Osmolality,Calculated 311.5 MOS/KG (273-304); Total Protein 7.2 G/DL (6.4-8.3)
[2018-12-25] MEDS: DOCUSATE SODIUM 100 MG CAPSULE PO SCH ×2 (10:37→20:41)
[2018-12-25] MEDS ORDERED: HEPARIN 10,000 UNIT/10 ML VIAL IV PRN (11:17)
[2018-12-25] MEDS ORDERED: MEROPENEM 500 MG in SYRINGE 1 EACH IV ONE (14:00)
[2018-12-25] MEDS: ZINC OXIDE PASTE 113 GM TUBE TOP SCH (20:42)
[2018-12-26] MEDS: HEPARIN 5,000 UNIT/1 ML VIAL SUBCUT SCH ×3 (02:33→18:09)
[2018-12-26 05:41] LABS: Basophils % 0.2 % (0.0-0.8); Eosinophils # 0.1 10*3/uL (0.0-0.87); Eosinophils % 0.5 % (0.00-10.9); Hematocrit 29.1 VOL% (42.0-52.0); Hemoglobin 8.6 GM/DL (14.0-18.0); Immature Granulocytes % 0.6 %; Immature Granulocytes Absolute 0.07 #; Lymphocytes # 1.5 10*3/uL (1.4-4.0); Lymphocytes % 13.1 % (21.2-54.2); Mean Corpuscular HGB Conc 29.6 GM/DL (32-36); Mean Corpuscular Volume 91.8 FL (87-102); Monocytes % 8.4 % (1.7-12.7); Neutrophils % 77.2 % (38.7-73.9); Platelet Count 285 T/CUMM (130-400); Red Blood Count 3.17 MC/CUMM (3.8-5.5); Red Cell Distribution Width 18.2 % (9.3-17.3); White Blood Count 11.5 T/CUMM (4-12)
[2018-12-26 06:11] LABS: Alanine Aminotransferase 12 U/L (16-61); Albumin 2.2 G/DL (3.4-5.0); Alkaline Phosphatase 157 U/L (45-117); Aspartate Amino Transferase 8 U/L (0-37); Bilirubin,Total < 0.39 MG/DL (0.2-1.0); Blood Urea Nitrogen 35 MG/DL (7-18); Calcium 7.8 MG/DL (8.5-10.1); Glucose 274 MG/DL (74-106); Osmolality,Calculated 300.1 MOS/KG (273-304); Total Protein 7.3 G/DL (6.4-8.3)
[2018-12-26] MEDS: INSULIN LISPRO 100 UNIT/ML SUBCUT SCH ×3 (08:47→16:26)
[2018-12-26] MEDS: INSULIN REGULAR 100 UNIT/ML SUBCUT SCH ×3 (08:47→16:26)
[2018-12-26] MEDS: SEVELAMER CARBONATE 800 MG TABLET PO SCH ×3 (08:48→18:09)
[2018-12-26] MEDS: FAMOTIDINE 20 MG TABLET PO SCH (08:48)
[2018-12-26] MEDS: MIDODRINE 5 MG TABLET PO SCH ×2 (08:48→14:00)
[2018-12-26] MEDS: THIAMINE 100 MG TABLET PO SCH (08:48)
[2018-12-26] MEDS: LOPERAMIDE 2 MG CAPSULE PO SCH (08:48)
[2018-12-26] MEDS: COLESEVELAM 625 MG TABLET PO SCH ×2 (08:48→18:10)
[2018-12-26] MEDS: ESCITALOPRAM 10 MG TABLET PO SCH (08:48)
[2018-12-26] MEDS: DIPHENOXYLATE/ATROPINE 2.5-0.025 MG TABLET PO SCH (08:48)
[2018-12-26] MEDS: SODIUM BICARBONATE 650 MG TABLET PO SCH ×2 (08:49→14:00)
[2018-12-26] MEDS: HYDROCORTISONE 10 MG TABLET PO SCH (08:49)
[2018-12-26] MEDS: ZINC OXIDE PASTE 113 GM TUBE TOP SCH (08:49)
[2018-12-26] MEDS: FOLIC ACID 1 MG TABLET PO SCH (08:49)
[2018-12-26] MEDS: ASCORBIC ACID 500 MG TABLET PO SCH (09:28)
[2018-12-26] MEDS: DOCUSATE SODIUM 100 MG CAPSULE PO SCH (09:28)
[2018-12-26] MEDS: PANTOPRAZOLE 40 MG TABLET PO SCH (14:00)
[2018-12-26] MEDS ORDERED: MEROPENEM 500 MG in SYRINGE 1 EACH IV SCH (17:00)
[2018-12-26 18:07] VITALS: BP 115/78
== END 2018-12-26 17:52 | disposition home health service (06) | DRG 177 ==
LOC: SUATTDRO 15:16 → N.5E 15:16
PROVIDERS: ADMIT Internal Medicine; ATTEND Internal Medicine

== ENCOUNTER 2019-02-04 15:20 | Inpatient (IN) ==
[2019-02-04] MEDS ORDERED: SODIUM CHLORIDE 0.9% 500 ML IV STA (15:58)
[2019-02-04] MEDS ORDERED: VANCOMYCIN INJ 1,000 MG in SODIUM CHLORIDE 0.9% 250 ML IV STA ×2 (15:58→16:04)
[2019-02-04] MEDS ORDERED: ACETAMINOPHEN 500 MG TABLET PO STA (15:58)
[2019-02-04] MEDS ORDERED: ALBUTEROL NEB SOLN 5 MG/ML 20 ML/BOTTLE CONT NEB STA (15:58)
[2019-02-04] MEDS ORDERED: methylPREDNISolone SOD SUC 125 MG/2 ML VIAL IV STA (16:02)
[2019-02-04 16:11] LABS: Basophils # 0.1 10*3/uL (0.0-0.2); Basophils % 0.3 % (0.0-0.8); Hematocrit 30.8 VOL% (42.0-52.0); Hemoglobin 9.6 GM/DL (14.0-18.0); Immature Granulocytes % 0.7 %; Immature Granulocytes Absolute 0.16 #; Lymphocytes % 4.3 % (21.2-54.2); Mean Corpuscular HGB Conc 31.2 GM/DL (32-36); Mean Corpuscular Volume 92.2 FL (87-102); Mean Platelet Volume 10.5 FL (9.6-12.0); Neutrophils % 89.7 % (38.7-73.9); Platelet Count 197 T/CUMM (130-400); Red Blood Count 3.34 MC/CUMM (3.8-5.5); White Blood Count 23.4 T/CUMM (4-12)
[2019-02-04 16:19] LABS: PT Patient Result 10.6 SECS (9.6-12.2)
[2019-02-04 16:32] LABS: Alanine Aminotransferase 28 U/L (16-61); Albumin 2.6 G/DL (3.4-5.0); Alkaline Phosphatase 239 U/L (45-117); Amylase 36 U/L (25-115); Aspartate Amino Transferase 28 U/L (0-37); Bilirubin,Total < 0.39 MG/DL (0.2-1.0); Blood Urea Nitrogen 39 MG/DL (7-18); Calcium 8.3 MG/DL (8.5-10.1); Estimated Glom Filtration Rate 23 ML/MIN; Osmolality,Calculated 298.4 MOS/KG (273-304); Total Protein 7.8 G/DL (6.4-8.3)
[2019-02-04 16:33] LABS: Apearance,Urine CLOUDY (Clear); Bilirubin,Urine Negative (Negative); Blood, Urine Small mg/dL (Negative); Glucose,Urine (UA) >=500 mg/dL (Negative); Ketones,Urine Negative (Negative); Mucus,Urine Occasional /LPF (Occasional); Nitrite,Urine Negative (Negative); Protein,Urine 30 MG/DL; RBC,Urine 27 /HPF (0-4); Urine Color Yellow (Yellow); Urine Specific Gravity 1.012 (1.001-1.035); Urine Urobilinogen < 2.0 EU/DL (0.2-1.0); WBC,Urine 1649 /HPF (0-6)
[2019-02-04 16:36] LABS: Band Neutrophils 8 % (0-10); Glucose 522 MG/DL (74-106); Lymphocytes 2 % (20-55); Segmented Neutrophils 83 % (50-85); Total Cells Counted 100; Troponin I 0.114 NG/ML (0.00-0.045)
[2019-02-04 16:37] LABS: Hypochromasia Slight; Platelet Estimate Adequate
[2019-02-04] MEDS ORDERED: INSULIN REGULAR 100 UNIT/ML IV STA (16:39)
[2019-02-04] MEDS ORDERED: GLUCAGON 1 MG VIAL IM PRN ×2 (17:58)
[2019-02-04] MEDS ORDERED: ONDANSETRON 4 MG/2 ML VIAL IV PRN (17:58)
[2019-02-04] MEDS ORDERED: DEXTROSE 50% 25 GM/50 ML VIAL IV PRN (17:58)
[2019-02-04] MEDS ORDERED: ACETAMINOPHEN 325 MG TABLET PO PRN (17:58)
[2019-02-04] MEDS ORDERED: DEXTROSE 10% 250 ML BAG IV PRN (17:58)
[2019-02-04] MEDS: INSULIN LISPRO 100 UNIT/ML SUBCUT SCH ×2 (19:30→22:19)
[2019-02-04] MEDS: PIPERACILLIN/TAZOBACTAM 3,375 MG in SODIUM CHLORIDE 0.9% 100 ML IV SCH (19:49)
[2019-02-04] MEDS: SODIUM CHLORIDE 0.9% 1,000 ML IV SCH (19:49)
[2019-02-04] MEDS: ALBUTEROL/IPRATROPIUM 3 ML NEB RESP TX SCH (20:51)
[2019-02-04] MEDS ORDERED: ENOXAPARIN 30 MG/0.3 ML SYRINGE SUBCUT SCH (21:00)
[2019-02-04] MEDS ORDERED: SODIUM CHLORIDE 0.9% 500 ML IV ONE (22:17)
[2019-02-05] MEDS: ALBUTEROL/IPRATROPIUM 3 ML NEB RESP TX SCH ×4 (00:05→18:35)
[2019-02-05 02:05] LABS: Basophils # 0.1 10*3/uL (0.0-0.2); Basophils % 0.2 % (0.0-0.8); Hematocrit 30.2 VOL% (42.0-52.0); Hemoglobin 9.1 GM/DL (14.0-18.0); Immature Granulocytes % 0.7 %; Immature Granulocytes Absolute 0.14 #; Lymphocytes # 0.8 10*3/uL (1.4-4.0); Lymphocytes % 3.8 % (21.2-54.2); Mean Corpuscular HGB Conc 30.1 GM/DL (32-36); Mean Corpuscular Volume 92.4 FL (87-102); Mean Platelet Volume 10.4 FL (9.6-12.0); Monocytes % 1.7 % (1.7-12.7); Neutrophils % 93.6 % (38.7-73.9); Platelet Count 206 T/CUMM (130-400); Red Blood Count 3.27 MC/CUMM (3.8-5.5); Red Cell Distribution Width 14.8 % (9.3-17.3); White Blood Count 21.2 T/CUMM (4-12)
[2019-02-05 02:18] LABS: Calcium 8.9 MG/DL (8.5-10.1)
[2019-02-05 02:34] LABS: Band Neutrophils 5 % (0-10); Lymphocytes 3 % (20-55); Platelet Estimate Normal; Segmented Neutrophils 92 % (50-85); Total Cells Counted 100
[2019-02-05] MEDS: SODIUM CHLORIDE 0.9% 1,000 ML IV SCH (06:00)
[2019-02-05] MEDS: PIPERACILLIN/TAZOBACTAM 3,375 MG in SODIUM CHLORIDE 0.9% 100 ML IV SCH ×2 (06:04→19:00)
[2019-02-05] MEDS: INSULIN LISPRO 100 UNIT/ML SUBCUT SCH ×3 (08:33→18:59)
[2019-02-05] MEDS: PANTOPRAZOLE 40 MG TABLET PO SCH (08:42)
[2019-02-05] MEDS: SODIUM HYPOCHLORITE 0.25% IRRIG 473 ML BOTTLE TOP SCH (16:08)
[2019-02-05] MEDS: SKIN HEALING OINT (AQUAPHOR) 50 GM TUBE TOP SCH (16:08)
[2019-02-05] MEDS ORDERED: EPOETIN ALFA 2,000 UNIT/1 ML VIAL IV PRN (16:22)
[2019-02-05] MEDS ORDERED: INSULIN NPH 100 UNIT/ML SUBCUT SCH (16:30)
[2019-02-05] MEDS: COLESEVELAM 625 MG TABLET PO SCH (16:54)
[2019-02-05] MEDS ORDERED: ERGOCALCIFEROL 50,000 UNIT CAPSULE PO SCH (17:00)
[2019-02-05] MEDS: HEPARIN 5,000 UNIT/1 ML VIAL SUBCUT SCH (21:44)
[2019-02-05] MEDS: ASCORBIC ACID 500 MG TABLET PO SCH (21:44)
[2019-02-05] MEDS: MIDODRINE 5 MG TABLET PO SCH (21:44)
[2019-02-06] MEDS: INSULIN LISPRO 100 UNIT/ML SUBCUT SCH ×5 (00:09→20:14)
[2019-02-06] MEDS: ALBUTEROL/IPRATROPIUM 3 ML NEB RESP TX SCH ×4 (00:10→19:54)
[2019-02-06 06:29] LABS: Calcium 8.4 MG/DL (8.5-10.1); Osmolality,Calculated 307.8 MOS/KG (273-304); Thyroid Stimulating Hormone 0.035 uIU/ml (0.358-3.74)
[2019-02-06] MEDS: LEVOTHYROXINE 100 MCG TABLET PO SCH (07:01)
[2019-02-06] MEDS: PIPERACILLIN/TAZOBACTAM 3,375 MG in SODIUM CHLORIDE 0.9% 100 ML IV SCH (07:01)
[2019-02-06 07:23] LABS: Basophils % 0.1 % (0.0-0.8); Eosinophils % 0.1 % (0.00-10.9); Hematocrit 29.4 VOL% (42.0-52.0); Hemoglobin 8.9 GM/DL (14.0-18.0); Immature Granulocytes % 0.3 %; Immature Granulocytes Absolute 0.05 #; Lymphocytes # 1.2 10*3/uL (1.4-4.0); Lymphocytes % 8.3 % (21.2-54.2); Mean Corpuscular HGB Conc 30.3 GM/DL (32-36); Mean Platelet Volume 10.6 FL (9.6-12.0); Monocytes % 6.1 % (1.7-12.7); Neutrophils % 85.1 % (38.7-73.9); Platelet Count 223 T/CUMM (130-400); Red Blood Count 3.16 MC/CUMM (3.8-5.5); Red Cell Distribution Width 14.9 % (9.3-17.3); White Blood Count 14.5 T/CUMM (4-12)
[2019-02-06] MEDS ORDERED: INSULIN NPH 100 UNIT/ML SUBCUT SCH (07:30)
[2019-02-06] MEDS: INSULIN NPH 100 UNIT/ML SUBCUT SCH ×2 (08:12→16:36)
[2019-02-06] MEDS: HEPARIN 5,000 UNIT/1 ML VIAL SUBCUT SCH ×2 (08:12→20:15)
[2019-02-06] MEDS: ESCITALOPRAM 10 MG TABLET PO SCH (08:13)
[2019-02-06] MEDS: ASCORBIC ACID 500 MG TABLET PO SCH ×2 (08:13→20:14)
[2019-02-06] MEDS: FOLIC ACID 1 MG TABLET PO SCH (08:13)
[2019-02-06] MEDS: PANTOPRAZOLE 40 MG TABLET PO SCH (08:13)
[2019-02-06] MEDS: MIDODRINE 5 MG TABLET PO SCH ×3 (08:13→20:14)
[2019-02-06] MEDS: CHOLESTYRAMINE 4 GM PACK PO SCH (08:13)
[2019-02-06] MEDS: COLESEVELAM 625 MG TABLET PO SCH ×2 (08:13→16:36)
[2019-02-06] MEDS: SODIUM HYPOCHLORITE 0.25% IRRIG 473 ML BOTTLE TOP SCH (08:14)
[2019-02-06] MEDS: SKIN HEALING OINT (AQUAPHOR) 50 GM TUBE TOP SCH (08:14)
[2019-02-06 10:29] LABS: Free T4 (Free Thyroxine) 1.01 NG/DL (0.76-1.46)
[2019-02-06] MEDS ORDERED: HEPARIN 10,000 UNIT/10 ML VIAL IV PRN (11:24)
[2019-02-06] MEDS: MEROPENEM 500 MG in SYRINGE 1 EACH IV SCH (16:35)
[2019-02-07] MEDS: ALBUTEROL/IPRATROPIUM 3 ML NEB RESP TX SCH ×4 (00:15→19:04)
[2019-02-07 05:58] LABS: Basophils % 0.2 % (0.0-0.8); Eosinophils # 0.1 10*3/uL (0.0-0.87); Eosinophils % 0.8 % (0.00-10.9); Hematocrit 33.9 VOL% (42.0-52.0); Hemoglobin 10.1 GM/DL (14.0-18.0); Immature Granulocytes % 0.7 %; Immature Granulocytes Absolute 0.07 #; Lymphocytes # 1.4 10*3/uL (1.4-4.0); Lymphocytes % 13.2 % (21.2-54.2); Mean Corpuscular HGB Conc 29.8 GM/DL (32-36); Mean Corpuscular Volume 93.4 FL (87-102); Mean Platelet Volume 10.6 FL (9.6-12.0); Monocytes % 6.4 % (1.7-12.7); NRBC # 0.04 10*3/uL; Neutrophils % 78.7 % (38.7-73.9); Platelet Count 252 T/CUMM (130-400); Red Blood Count 3.63 MC/CUMM (3.8-5.5); White Blood Count 10.6 T/CUMM (4-12)
[2019-02-07 06:25] LABS: Calcium 8.6 MG/DL (8.5-10.1); Osmolality,Calculated 290.5 MOS/KG (273-304)
[2019-02-07] MEDS: LEVOTHYROXINE 100 MCG TABLET PO SCH (06:46)
[2019-02-07] MEDS ORDERED: LEVOTHYROXINE 50 MCG TABLET PO SCH (07:00)
[2019-02-07] MEDS: INSULIN LISPRO 100 UNIT/ML SUBCUT SCH ×3 (09:22→17:13)
[2019-02-07] MEDS: INSULIN NPH 100 UNIT/ML SUBCUT SCH ×2 (09:23→17:13)
[2019-02-07] MEDS: ESCITALOPRAM 10 MG TABLET PO SCH (09:23)
[2019-02-07] MEDS: MIDODRINE 5 MG TABLET PO SCH ×2 (09:23→15:14)
[2019-02-07] MEDS: COLESEVELAM 625 MG TABLET PO SCH ×2 (09:24→17:13)
[2019-02-07] MEDS: ASCORBIC ACID 500 MG TABLET PO SCH (09:24)
[2019-02-07] MEDS: FOLIC ACID 1 MG TABLET PO SCH (09:24)
[2019-02-07] MEDS: PANTOPRAZOLE 40 MG TABLET PO SCH (09:24)
[2019-02-07] MEDS: HEPARIN 5,000 UNIT/1 ML VIAL SUBCUT SCH (09:25)
[2019-02-07] MEDS: CHOLESTYRAMINE 4 GM PACK PO SCH (09:25)
[2019-02-07] MEDS: SKIN HEALING OINT (AQUAPHOR) 50 GM TUBE TOP SCH (13:30)
[2019-02-07] MEDS: SODIUM HYPOCHLORITE 0.25% IRRIG 473 ML BOTTLE TOP SCH (13:30)
[2019-02-07] MEDS: MEROPENEM 500 MG in SYRINGE 1 EACH IV SCH (15:15)
[2019-02-07 21:37] VITALS: BP 127/85
== END 2019-02-07 21:00 | DRG 466 ==
LOC: N.ED 15:20 → N.EDINP 17:59 → N.5E 18:34
PROVIDERS: ADMIT Internal Medicine; ATTEND Internal Medicine

== ENCOUNTER 2019-03-30 16:18 | Inpatient (IN) ==
[2019-03-30] MEDS ORDERED: SODIUM CHLORIDE 0.9% 2,000 ML IV ONE (18:22)
[2019-03-30] MEDS ORDERED: PROMETHAZINE 25 MG TABLET PO PRN (18:24)
[2019-03-30] MEDS ORDERED: ONDANSETRON 4 MG/2 ML VIAL IV PRN (18:27)
[2019-03-30] MEDS ORDERED: MAGNESIUM SULF RIDER 4 GM in PREMIX 1 EACH IV PRN (18:29)
[2019-03-30] MEDS ORDERED: INSULIN REGULAR 100 UNIT/ML IV ONE (18:29)
[2019-03-30] MEDS ORDERED: DEXTROSE 50% 25 GM/50 ML VIAL IV PRN ×2 (18:29)
[2019-03-30] MEDS ORDERED: SODIUM CHLORIDE 0.9% IV PRN (18:29)
[2019-03-30] MEDS ORDERED: SODIUM PHOSPHATE IV PRN (18:29)
[2019-03-30] MEDS ORDERED: SODIUM BICARB INJ 100 MEQ in STERILE WATER INJ 400 ML IV PRN (18:29)
[2019-03-30] MEDS ORDERED: INSULIN REGULAR DRIP 100 ML IV SCH (18:30)
[2019-03-30] MEDS ORDERED: INFLUENZA VIRUS VACCINE 0.5 ML SYRINGE IM ONE (18:38)
[2019-03-30 18:42] LABS: ABG Base Excess 4.7 MMOL/L (-2.5-2.5); ABG HCO3 28.6 MMOL/L (20-26); ABG Oxygen Saturation 95.3 % (95-100); ABG PCO2 58.1 MM HG (35-48); ABG PH 7.347 (7.35-7.45); ABG PO2 75.5 MM HG (80-95); ABG TCO2 28.9 MMOL/L (23-27); Allen Test Positive
[2019-03-30 19:16] LABS: Basophils # 0.1 10*3/uL (0.0-0.2); Basophils % 0.2 % (0.0-0.8); Eosinophils % 0.1 % (0.00-10.9); Hematocrit 37.3 VOL% (42.0-52.0); Hemoglobin 11.4 GM/DL (14.0-18.0); Immature Granulocytes % 0.8 %; Immature Granulocytes Absolute 0.23 #; Lymphocytes # 1.3 10*3/uL (1.4-4.0); Lymphocytes % 4.3 % (21.2-54.2); Mean Corpuscular HGB Conc 30.6 GM/DL (32-36); Mean Corpuscular Volume 85.7 FL (87-102); Neutrophils % 91.6 % (38.7-73.9); Platelet Count 253 T/CUMM (130-400); Red Blood Count 4.35 MC/CUMM (3.8-5.5); White Blood Count 30.2 T/CUMM (4-12)
[2019-03-30] MEDS ORDERED: ALBUTEROL 2.5 MG/3 ML NEB RESP TX PRN (19:29)
[2019-03-30 19:37] LABS: Anisocytosis Slight; Band Neutrophils 2 % (0-10); Lymphocytes 3 % (20-55); Microcytosis Slight; Platelet Estimate Normal; Segmented Neutrophils 93 % (50-85); Total Cells Counted 100
[2019-03-30 19:38] LABS: Alanine Aminotransferase 12 U/L (16-61); Albumin 2.4 G/DL (3.4-5.0); Alkaline Phosphatase 180 U/L (45-117); Aspartate Amino Transferase 10 U/L (0-37); Bilirubin,Total < 0.39 MG/DL (0.2-1.0); Blood Urea Nitrogen 29 MG/DL (7-18); Calcium 7.9 MG/DL (8.5-10.1); Estimated Glom Filtration Rate 21 ML/MIN; Osmolality,Calculated 291.7 MOS/KG (273-304); Total Protein 7.6 G/DL (6.4-8.3)
[2019-03-30 19:40] LABS: Glucose 534 MG/DL (74-106)
[2019-03-30] MEDS ORDERED: VANCOMYCIN INJ 500 MG in SODIUM CHLORIDE 0.9% 100 ML IV PRN (19:53)
[2019-03-30] MEDS ORDERED: MEROPENEM 500 MG in SODIUM CHLORIDE 0.9% 100 ML IV SCH (20:00)
[2019-03-30] MEDS: AZITHROMYCIN INJ 500 MG in SODIUM CHLORIDE 0.9% 250 ML IV SCH (20:48)
[2019-03-30 20:58] LABS: Apearance,Urine CLOUDY (Clear); Bilirubin,Urine Negative (Negative); Blood, Urine Small mg/dL (Negative); Glucose,Urine (UA) >=500 mg/dL (Negative); Hyaline Casts,Urine 3 /LPF (0-3); Ketones,Urine Negative (Negative); Nitrite,Urine Negative (Negative); Protein,Urine 30 MG/DL; RBC,Urine 4 /HPF (0-4); Urine Color Yellow (Yellow); Urine Specific Gravity 1.009 (1.001-1.035); Urine Urobilinogen < 2.0 EU/DL (0.2-1.0); WBC,Urine 490 /HPF (0-6)
[2019-03-30] MEDS ORDERED: VANCOMYCIN INJ 1,500 MG in SODIUM CHLORIDE 0.9% 500 ML IV ONE (22:00)
[2019-03-30 22:14] LABS: Osmolality,Calculated 289.2 MOS/KG (273-304)
[2019-03-30 22:31] LABS: ABG Base Excess 3.5 MMOL/L (-2.5-2.5); ABG HCO3 27.6 MMOL/L (20-26); ABG Oxygen Saturation 96.3 % (95-100); ABG PCO2 56.9 MM HG (35-48); ABG PH 7.339 (7.35-7.45); ABG PO2 82.6 MM HG (80-95); ABG TCO2 27.8 MMOL/L (23-27); Allen Test Positive
[2019-03-30] MEDS: ALBUTEROL 2.5 MG/3 ML NEB RESP TX SCH (23:05)
[2019-03-30] MEDS: SODIUM CHLORIDE 0.9% 1,000 ML IV SCH (23:21)
[2019-03-30] MEDS ORDERED: PHENYLEPHRINE DRIP 40 MG/250 ML PREMIX IV PRN (23:45)
[2019-03-31] MEDS ORDERED: GLUCAGON 1 MG VIAL IM PRN (00:43)
[2019-03-31] MEDS ORDERED: DEXTROSE 50% 25 GM/50 ML VIAL IV PRN (00:43)
[2019-03-31] MEDS ORDERED: INSULIN REGULAR 100 UNIT/ML SUBCUT SCH (00:43)
[2019-03-31] MEDS: INSULIN REGULAR 100 UNIT/ML SUBCUT SCH ×4 (01:04→18:09)
[2019-03-31] MEDS: MAGNESIUM SULF RIDER 2 GM in PREMIX 1 EACH IV PRN (02:39)
[2019-03-31] MEDS: ALBUTEROL 2.5 MG/3 ML NEB RESP TX SCH ×5 (02:50→19:44)
[2019-03-31 04:35] LABS: ABG Base Excess 3.8 MMOL/L (-2.5-2.5); ABG HCO3 27.7 MMOL/L (20-26); ABG Oxygen Saturation 93.4 % (95-100); ABG PCO2 56.6 MM HG (35-48); ABG PH 7.344 (7.35-7.45); ABG PO2 66.4 MM HG (80-95); ABG TCO2 27.9 MMOL/L (23-27)
[2019-03-31 05:09] LABS: Basophils # 0.1 10*3/uL (0.0-0.2); Basophils % 0.2 % (0.0-0.8); Eosinophils # 0.1 10*3/uL (0.0-0.87); Eosinophils % 0.4 % (0.00-10.9); Hematocrit 34.3 VOL% (42.0-52.0); Hemoglobin 10.6 GM/DL (14.0-18.0); Immature Granulocytes % 1.3 %; Immature Granulocytes Absolute 0.36 #; Lymphocytes # 2.3 10*3/uL (1.4-4.0); Lymphocytes % 8.4 % (21.2-54.2); Mean Corpuscular HGB Conc 30.9 GM/DL (32-36); Mean Corpuscular Volume 86.2 FL (87-102); Mean Platelet Volume 9.6 FL (9.6-12.0); Monocytes % 2.9 % (1.7-12.7); Neutrophils % 86.8 % (38.7-73.9); Platelet Count 269 T/CUMM (130-400); Red Blood Count 3.98 MC/CUMM (3.8-5.5); Red Cell Distribution Width 13.9 % (9.3-17.3); White Blood Count 27.6 T/CUMM (4-12)
[2019-03-31 05:32] LABS: Calcium 8.1 MG/DL (8.5-10.1)
[2019-03-31 06:01] LABS: Eosinophils 1 % (0-10); Lymphocytes 8 % (20-55); Platelet Estimate Normal; Polychromasia Few; Segmented Neutrophils 90 % (50-85); Total Cells Counted 100
[2019-03-31] MEDS: POTASSIUM CHLORIDE RIDER 10 MEQ in PREMIX 1 EACH IV PRN ×4 (06:38→10:41)
[2019-03-31] MEDS ORDERED: POTASSIUM CHLORIDE 20 MEQ/15 ML UDCUP PER TUBE ONE (08:23)
[2019-03-31] MEDS: INSULIN GLARGINE 100 UNIT/ML SUBCUT SCH ×2 (09:12→20:42)
[2019-03-31] MEDS: PANTOPRAZOLE 40 MG TABLET PO SCH (09:13)
[2019-03-31] MEDS: SODIUM CHLORIDE 0.9% 1,000 ML IV SCH ×2 (10:42→20:41)
[2019-03-31] MEDS ORDERED: SODIUM CHLORIDE 0.45% 1,000 ML IV SCH (11:30)
[2019-03-31] MEDS: MEROPENEM 500 MG in SODIUM CHLORIDE 0.9% 100 ML IV SCH (20:39)
[2019-03-31] MEDS: AZITHROMYCIN INJ 500 MG in SODIUM CHLORIDE 0.9% 250 ML IV SCH (21:18)
[2019-04-01] MEDS: INSULIN REGULAR 100 UNIT/ML SUBCUT SCH ×5 (00:08→21:25)
[2019-04-01] MEDS: ALBUTEROL 2.5 MG/3 ML NEB RESP TX SCH ×7 (00:09→23:08)
[2019-04-01 03:35] LABS: ABG HCO3 24.3 MMOL/L (20-26); ABG Oxygen Saturation 91.9 % (95-100); ABG PCO2 49.5 MM HG (35-48); ABG PH 7.334 (7.35-7.45); ABG PO2 64.5 MM HG (80-95); ABG TCO2 24.3 MMOL/L (23-27); Allen Test Positive
[2019-04-01 04:37] LABS: Basophils % 0.1 % (0.0-0.8); Eosinophils # 0.1 10*3/uL (0.0-0.87); Eosinophils % 0.8 % (0.00-10.9); Hematocrit 29.8 VOL% (42.0-52.0); Immature Granulocytes % 2.1 %; Immature Granulocytes Absolute 0.29 #; Lymphocytes # 1.6 10*3/uL (1.4-4.0); Lymphocytes % 11.2 % (21.2-54.2); Mean Corpuscular HGB Conc 30.2 GM/DL (32-36); Mean Corpuscular Volume 87.9 FL (87-102); Monocytes % 5.3 % (1.7-12.7); Neutrophils % 80.5 % (38.7-73.9); Platelet Count 247 T/CUMM (130-400); Red Blood Count 3.39 MC/CUMM (3.8-5.5); Red Cell Distribution Width 14.4 % (9.3-17.3); White Blood Count 14.1 T/CUMM (4-12)
[2019-04-01 04:43] LABS: Calcium 7.9 MG/DL (8.5-10.1); Osmolality,Calculated 293.4 MOS/KG (273-304)
[2019-04-01] MEDS: MAGNESIUM SULF RIDER 2 GM in PREMIX 1 EACH IV PRN (06:10)
[2019-04-01] MEDS: POTASSIUM CHLORIDE RIDER 10 MEQ in PREMIX 1 EACH IV PRN ×2 (06:11→07:10)
[2019-04-01] MEDS: SODIUM CHLORIDE 0.9% 1,000 ML IV SCH ×3 (06:18→21:21)
[2019-04-01] MEDS: INSULIN GLARGINE 100 UNIT/ML SUBCUT SCH ×2 (09:44→21:25)
[2019-04-01] MEDS: PANTOPRAZOLE 40 MG TABLET PO SCH (09:44)
[2019-04-01] MEDS ORDERED: LEVOFLOXACIN INJ 750 MG in PREMIX 1 EACH IV ONE (15:00)
[2019-04-01] MEDS ORDERED: ACETAMINOPHEN 500 MG TABLET PO PRN (20:33)
[2019-04-01] MEDS: MEROPENEM 500 MG in SODIUM CHLORIDE 0.9% 100 ML IV SCH (21:22)
[2019-04-02] MEDS: ALBUTEROL 2.5 MG/3 ML NEB RESP TX SCH ×3 (04:03→11:12)
[2019-04-02 04:43] LABS: Basophils % 0.2 % (0.0-0.8); Eosinophils # 0.1 10*3/uL (0.0-0.87); Eosinophils % 0.8 % (0.00-10.9); Hemoglobin 8.3 GM/DL (14.0-18.0); Immature Granulocytes % 2.5 %; Lymphocytes # 1.3 10*3/uL (1.4-4.0); Lymphocytes % 10.5 % (21.2-54.2); Mean Corpuscular HGB Conc 29.6 GM/DL (32-36); Mean Corpuscular Volume 88.9 FL (87-102); Mean Platelet Volume 9.5 FL (9.6-12.0); Monocytes % 4.8 % (1.7-12.7); Neutrophils % 81.2 % (38.7-73.9); Platelet Count 231 T/CUMM (130-400); Red Blood Count 3.15 MC/CUMM (3.8-5.5); Red Cell Distribution Width 14.6 % (9.3-17.3); White Blood Count 12.2 T/CUMM (4-12)
[2019-04-02 05:12] LABS: Calcium 8.1 MG/DL (8.5-10.1)
[2019-04-02] MEDS: PANTOPRAZOLE 40 MG TABLET PO SCH (08:43)
[2019-04-02] MEDS: INSULIN REGULAR 100 UNIT/ML SUBCUT SCH ×4 (08:43→21:53)
[2019-04-02] MEDS ORDERED: EPOETIN ALFA 10,000 UNIT/1 ML VIAL IV PRN (13:47)
[2019-04-02] MEDS ORDERED: LOPERAMIDE 2 MG CAPSULE PO PRN (13:47)
[2019-04-02] MEDS ORDERED: MIDODRINE 5 MG TABLET PO PRN (13:47)
[2019-04-02] MEDS ORDERED: ERGOCALCIFEROL 50,000 UNIT CAPSULE PO SCH (14:00)
[2019-04-02] MEDS: ALBUTEROL/IPRATROPIUM 3 ML NEB RESP TX SCH ×2 (14:24→19:45)
[2019-04-02] MEDS: SODIUM CHLORIDE 0.9% 1,000 ML IV SCH ×2 (16:34→19:58)
[2019-04-02] MEDS: SODIUM BICARBONATE 650 MG TABLET PO SCH ×2 (16:42→21:52)
[2019-04-02] MEDS: LIPASE/PROTEASE/AMYLASE 4,200 UNITS CAPSULE PO SCH ×2 (16:42→21:50)
[2019-04-02] MEDS: COLESEVELAM 625 MG TABLET PO SCH (21:00)
[2019-04-02] MEDS: HYDROCORTISONE 10 MG TABLET PO SCH (21:51)
[2019-04-02] MEDS: INSULIN GLARGINE 100 UNIT/ML SUBCUT SCH (21:52)
[2019-04-02] MEDS: ASCORBIC ACID 500 MG TABLET PO SCH (21:52)
[2019-04-02] MEDS: MEROPENEM 500 MG in SODIUM CHLORIDE 0.9% 100 ML IV SCH (21:53)
[2019-04-03] MEDS: ALBUTEROL/IPRATROPIUM 3 ML NEB RESP TX SCH ×3 (00:04→13:46)
[2019-04-03] MEDS: MORPHINE 4 MG/1 ML VIAL IV PRN ×3 (02:10→15:32)
[2019-04-03 05:15] LABS: Calcium 8.5 MG/DL (8.5-10.1); Osmolality,Calculated 300.8 MOS/KG (273-304)
[2019-04-03] MEDS ORDERED: LEVOTHYROXINE 100 MCG TABLET PO SCH (07:00)
[2019-04-03] MEDS: INSULIN REGULAR 100 UNIT/ML SUBCUT SCH ×3 (08:58→17:37)
[2019-04-03] MEDS: SODIUM BICARBONATE 650 MG TABLET PO SCH ×2 (08:59→15:34)
[2019-04-03] MEDS: HYDROCORTISONE 10 MG TABLET PO SCH (08:59)
[2019-04-03] MEDS ORDERED: THIAMINE 100 MG TABLET PO SCH (09:00)
[2019-04-03] MEDS ORDERED: SKIN HEALING OINT (AQUAPHOR) 50 GM TUBE TOP SCH (09:00)
[2019-04-03] MEDS ORDERED: ESCITALOPRAM 10 MG TABLET PO SCH (09:00)
[2019-04-03] MEDS ORDERED: FOLIC ACID 1 MG TABLET PO SCH (09:00)
[2019-04-03] MEDS: PANTOPRAZOLE 40 MG TABLET PO SCH (09:00)
[2019-04-03] MEDS: COLESEVELAM 625 MG TABLET PO SCH (09:00)
[2019-04-03] MEDS: ASCORBIC ACID 500 MG TABLET PO SCH (09:01)
[2019-04-03] MEDS ORDERED: LEVOFLOXACIN INJ 500 MG in PREMIX 1 EACH IV SCH (15:00)
[2019-04-03] MEDS: LIPASE/PROTEASE/AMYLASE 4,200 UNITS CAPSULE PO SCH ×2 (15:26→15:43)
[2019-04-03 19:21] VITALS: BP 130/87
== END 2019-04-03 18:20 | disposition home health service (06) | DRG 698 ==
LOC: N.CC 18:04 → SUATTDRO 18:04 → N.5E 04-03 04:12
PROVIDERS: ADMIT Internal Medicine; ATTEND Internal Medicine